=== PATIENT | female | born 1955 | race Caucasian/White ===

== ENCOUNTER → 2016-06-15 | Outpatient (CLI) | payer OTHER ==
--- NOTE | 2016-06-15 11:07 | USB ---
Reason for exam: follow-up at short interval from prior study. History: Patient is postmenopausal. Physical Findings: Nurse did not find any significant physical abnormalities on exam. US Breast RT Right breast ultrasound includes all four quadrants, the retroareolar region and axilla. Finding demonstrate no cystic or solid lesion seen. Compared to ultrasound on 10/22/15 previous findings absent. These results were verbally communicated with the patient and result sheet given to the patient on 06/15/16. ASSESSMENT: Negative, BI-RAD 1 RECOMMENDATION: Routine screening mammogram of the right breast in 5 months. Back on schedule.
== END | disposition home or self-care (01) ==
LOC: RADUSWWP 09:41
PROVIDERS: ATTEND Family Medicine
DX: R92.8 Other abnormal and inconclusive findings on diagnostic imaging of breast (principal)

== ENCOUNTER → 2018-10-03 | Outpatient (CLI) | payer OTHER ==
--- NOTE | 2018-10-03 10:04 | US ---
EXAMINATION TYPE: US liver DATE OF EXAM: 10/03/2018 COMPARISON: NONE CLINICAL HISTORY: R94.5 Abnormal results of liver function studies. abn labs EXAM MEASUREMENTS: Liver Length: 18.7 cm Gallbladder Wall: 0.1 cm CBD: 0.7 cm Right Kidney: 10.7 x 4.1 x 4.6 cm Pancreas: Tail not well visualized due to overlying bowel gas. Liver: There is increased echogenicity of the hepatic parenchyma with diminished visualization of th e portal triads most commonly relating to hepatic steatosis and limiting evaluation for underlying he patic masses. Gallbladder: wnl Evidence for sonographic Manning's sign: neg CBD: upper limits of normal Right Kidney: wnl IMPRESSION: 1. Sonographic findings most commonly related to hepatic steatosis. Correlate with liver function dheeraj ts. 2. No sonographic evidence of cholelithiasis nor acute cholecystitis.
== END | disposition home or self-care (01) ==
LOC: RADUSWWP 09:18
PROVIDERS: ATTEND Family Medicine
DX: R94.5 Abnormal results of liver function studies (principal); Z88.5 Allergy status to narcotic agent
CPT/HCPCS: 76705

== ENCOUNTER 2018-11-04 15:24 | Emergency (ER) | payer OTHER ==
[2018-11-04 15:30] VITALS: BP 142/80; PULSE 98; RESP 18; TEMP 98.3
[2018-11-04] MEDS ORDERED: ACETAMINOPHEN TAB 500 MG TAB PO STA (15:43)
--- NOTE | 2018-11-04 16:11 | XR ---
EXAMINATION TYPE: XR shoulder complete RT, XR humerus RT DATE OF EXAM: 11/04/2018 CLINICAL HISTORY: Pain from fall injury 2 weeks ago. TECHNIQUE: Three views of the right shoulder are obtained. 2 views of right humerus. COMPARISON: None. FINDINGS: There is no acute fracture/dislocation evident in the right shoulder. Some narrowing gleno humeral joint. Moderate to severe narrowing of acromial navicular joint with mild to moderate spurri ng. Distal acromion morphology is maintained. The visualized ribs are intact and unremarkable. Images of right humerus show no acute fracture or dislocation. Visualized elbow joint is within heron l limits. Overlying soft tissue is unremarkable. IMPRESSION: There is no acute fracture or dislocation in the right shoulder.
--- NOTE | 2018-11-04 16:12 | XR ---
EXAMINATION TYPE: XR Hip RT and AP Pelvis DATE OF EXAM: 11/04/2018 COMPARISON: NONE HISTORY: Pain from fall injury 2 weeks ago. Lifting injury 2 days ago. TECHNIQUE: A single AP view of the pelvis is obtained. Two views of the right hip are obtained. FINDINGS: There is no acute fracture/dislocation evident in the pelvis. The sacroiliac joints are d ifficult to visualize in their entirety particularly on the left, likely within normal limits. The o verlying soft tissue appears unremarkable. Mild axial joint space loss in both hips is present. Two views of right hip show no acute fracture or dislocation. No focal lytic or sclerotic lesion see n in the proximal right femur. The overlying soft tissue is unremarkable. IMPRESSION: There is no acute fracture or dislocation in the pelvis or hip.
--- NOTE | 2018-11-04 16:27 | ED ---
General Adult HPI - General Chief complaint: Extremity Injury, Upper Stated complaint: side pain Time Seen by Provider: 11/04/18 15:32 Source: patient, RN notes reviewed Mode of arrival: ambulatory Limitations: no limitations - History of Present Illness Initial comments: 63-year-old female presents to the emergency department for a chief complaint of right hip and shoulder pain. Patient states her shoulder has hurt for 2 weeks. States she had a fall where she fell onto her shoulder 2 weeks ago and since then has been having pain. Patient states that she moved into her new apartment and was moving heavy boxes 2 days ago when she felt the pain in her right hip. States that she has been able to walk on it. Patient has not taken anything for pain. Patient denies any fevers or chills. Denies any numbness or tingling in the right arm or right leg. Denies any midline back pain. Patient denies any weakness of the lower extremities.Patient has no other complaints at this time including shortness of breath, chest pain, abdominal pain, nausea or vomiting, headache, or visual changes. - Related Data Home Medications Medication Instructions Recorded Confirmed Hydrochlorothiazide 25 mg PO DAILY 08/05/15 08/06/15 Levothyroxine Sodium [Synthroid] 50 mcg PO DAILY 08/05/15 08/06/15 amLODIPine BESYLATE [Amlodipine 10 mg PO DAILY 08/05/15 08/06/15 Besylate] Previous Rx's Medication Instructions Recorded Doxepin [SINEquan] 50 mg PO HS PRN #60 cap 08/18/15 Doxepin [SINEquan] 100 mg PO HS #120 cap 08/18/15 Gabapentin [Neurontin] 600 mg PO BID #120 cap 08/18/15 OXcarbazepine [Trileptal] 450 mg PO BID #180 tab 08/18/15 Ziprasidone [Geodon] 80 mg PO BID-W/MEALS #60 cap 08/18/15 Allergies Allergy/AdvReac Type Severity Reaction Status Date / Time ibuprofen [From Motrin] Allergy Swelling Verified 11/04/18 15:28 NSAIDS (Non-Steroidal Allergy Rash/Hives Verified 11/04/18 15:28 Anti-Inflamma Review of Systems ROS Statement: Those systems with pertinent positive or pertinent negative responses have been documented in the HPI. ROS Other: All systems not noted in ROS Statement are negative. Past Medical History Past Medical History: Hypertension, Thyroid Disorder Additional Past Medical History / Comment(s): Blind in the left eye from History of Any Multi-Drug Resistant Organisms: None Reported Past Surgical History: Tubal Ligation Past Anesthesia/Blood Transfusion Reactions: No Reported Reaction Past Psychological History: Anxiety, Bipolar, Depression, Schizophrenia Smoking Status: Current every day smoker Past Alcohol Use History: None Reported Past Drug Use History: None Reported - Past Family History Father Family Medical History: Unable to Obtain Additional Family Medical History / Comment(s): Father is alive at age 86 with history of diabetes. Mother Additional Family Medical History / Comment(s): Mother is alive at age 85 with history of hypertension, temporal arteritis, peripheral vascular disease status post carotid surgery, blindness in the left eye. Sister(s) Additional Family Medical History / Comment(s): Patient has 4 sisters with no major medical problems. Patient has 3 daughters with no major medical problems. General Exam - General Exam Comments Initial Comments: Right shoulder: Patient has full range of motion of the right shoulder. It skin is intact. No tenderness noted of the right shoulder. No bruising or ecchymosis. Radial pulse 2+ and capillary refill less than 2 seconds. Telecine Operator strength 5 out of 5. Sensation intact in right upper extremity. Right hip: Patient has full range motion of the right hip and is ambulatory without limping or pain. No erythema. Skin is intact in normal-appearing. DP and PT pulses 2+. Capillary refill less than 2 seconds. Limitations: no limitations General appearance: alert, in no apparent distress Head exam: Present: atraumatic, normocephalic, normal inspection Eye exam: Present: normal appearance, PERRL, EOMI. Absent: scleral icterus, conjunctival injection, periorbital swelling ENT exam: Present: normal exam, mucous membranes moist Neck exam: Present: normal inspection, full ROM. Absent: tenderness, meningismus, lymphadenopathy Respiratory exam: Present: normal lung sounds bilaterally. Absent: respiratory distress, wheezes, rales, rhonchi, stridor Cardiovascular Exam: Present: regular rate, normal rhythm, normal heart sounds. Absent: systolic murmur, diastolic murmur, rubs, gallop, clicks Neurological exam: Present: alert Course Vital Signs 11/04/18 15:28 Temperature 98.3 F Pulse Rate 98 Respiratory 18 Rate Blood Pressure 142/80 O2 Sat by Pulse 97 Oximetry Medical Decision Making - Medical Decision Making 63-year-old female presents for right shoulder pain 2 weeks after a fall and right hip pain 2 days after moving boxes. No back pain. HPI is documented. No fevers. Patient is ambulatory. Physical exam is unremarkable. Vitals are stable. Patient is well-appearing. X-ray of the right shoulder shows no acute fracture or dislocation. There is moderate to severe narrowing of the acromioclavicular joint which may be contributing to patient's pain. X-ray of the right hip and pelvis shows no acute fracture or dislocation. At this time pain likely muscular in nature. Patient has an ALLERGY to Motrin but will take Tylenol at home. Discussed parameters of Tylenol use. Discussed following up with orthopedics in one to 2 days or return here if she has any worsening symptoms. Disposition Clinical Impression: Shoulder pain, right, Hip pain, right Disposition: HOME SELF-CARE Condition: Good Instructions (If sedation given, give patient instructions): Shoulder Pain (ED), Hip Pain (ED) Additional Instructions: Please take Tylenol for pain. Please follow-up with primary care and orthopedics in 1-2 days. Please return to the emergency department if you have any worsening symptoms. Is patient prescribed a controlled substance at d/c from ED?: No Referrals: Bj Lara Jr, DO [Primary Care Provider] - 1-2 days Mehul Trammell DO [Doctor of Osteopathic Medicine] - 1-2 days Time of Disposition: 16:26
== END 2018-11-04 16:30 | disposition home or self-care (01) ==
LOC: EC 15:24
DX: M25.511 Pain in right shoulder (principal); M25.551 Pain in right hip; I10 Essential (primary) hypertension; E07.9 Disorder of thyroid, unspecified; H54.62 Unqualified visual loss, left eye, normal vision right eye; F17.200 Nicotine dependence, unspecified, uncomplicated; Z88.6 Allergy status to analgesic agent; M25.811 Other specified joint disorders, right shoulder; Z79.890 Hormone replacement therapy; Z79.899 Other long term (current) drug therapy; W19.XXXA Unspecified fall, initial encounter; X50.0XXA Overexertion from strenuous movement or load, initial encounter; Y93.89 Activity, other specified
CPT/HCPCS: 73502; 99283

== ENCOUNTER 2018-12-14 05:18 | Inpatient (IN) | payer MEDICAID, OTHER ==
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
[2018-12-14] MEDS ORDERED: ZIPRASIDONE 20 MG VIAL IM STA (06:58)
[2018-12-14] MEDS ORDERED: LORazepam 2 MG/ML INJ IM STA (06:58)
[2018-12-14] MEDS ORDERED: MAG HYDROX/AL HYDROX/SIMETH 30 ML CUP PO PRN (13:43)
[2018-12-14] MEDS ORDERED: LORazepam 2 MG/ML INJ IM PRN (13:47)
[2018-12-14] MEDS ORDERED: ZIPRASIDONE 20 MG VIAL IM PRN (13:48)
[2018-12-14] MEDS: LORazepam 1 MG TAB PO PRN (16:28)
[2018-12-15] MEDS: LEVOTHYROXINE 50 MCG TAB PO SCH (07:15)
[2018-12-15 09:31] LABS: Basophils % (A) 1 %; Eosinophils # (A) 0.1 k/uL (0-0.7); Eosinophils % (A) 2 %; HCT 43.9 % (34.0-46.0); HGB 14.7 gm/dL (11.4-16.0); Lymphocytes % (A) 32 %; MCH 31.7 pg (25.0-35.0); MCHC 33.6 g/dL (31.0-37.0); MCV 94.3 fL (80.0-100.0); Monocytes # (A) 0.4 k/uL (0-1.0); Monocytes % (A) 6 %; Neutrophils # (A) 3.4 k/uL (1.3-7.7); Neutrophils % (A) 56 %; Platelet Count 179 k/uL (150-450); RBC 4.65 m/uL (3.80-5.40); RDW 12.9 % (11.5-15.5); WBC 6.1 k/uL (3.8-10.6)
[2018-12-15 09:45] LABS: ALT 61 U/L (9-52); AST 63 U/L (14-36); African American GFR (CKD) >90 (>60 ml/min/1.73 sqM); Albumin 4.2 g/dL (3.5-5.0); Alkaline Phosphatase 88 U/L (38-126); Anion Gap 12 mmol/L; Bilirubin, Delta 0.4 mg/dL (0.0-0.2); Bilirubin,Unconjugated 0.9 mg/dL (0.0-1.1); Blood Urea Nitrogen 13 mg/dL (7-17); Calcium 9.4 mg/dL (8.4-10.2); Carbon Dioxide 23 mmol/L (22-30); Chloride 104 mmol/L (98-107); Cholesterol 166 mg/dL (<200); Glucose 95 mg/dL (74-99); HDL Cholesterol 39 mg/dL (40-60); LDL Cholesterol,Calculated 106 mg/dL (0-99); Non-African American GFR(CKD) >90 (>60 ml/min/1.73 sqM); Potassium 4.1 mmol/L (3.5-5.1); Sodium 139 mmol/L (137-145); Total Bilirubin 1.3 mg/dL (0.2-1.3); Total Protein 7.7 g/dL (6.3-8.2); Triglycerides 103 mg/dL (<150)
[2018-12-15] MEDS: ATORVASTATIN 10 MG TAB PO SCH (10:47)
[2018-12-15] MEDS: amLODIPine 10 MG TAB PO SCH (10:47)
[2018-12-15] MEDS: ATENOLOL 50 MG TAB PO SCH (10:47)
--- NOTE | 2018-12-15 12:33 | P.CONS ---
History of Present Illness - Reason for Consult Consult date: 12/15/18 Medical management of hypertension hyperlipidemia hypothyroidism - History of Present Illness This is a pleasant 63-year-old female, who was hospitalized for delusions. She has a medical history of hypertension, hyperlipidemia, and hypothyroidism. I've been asked to see her for medical management is diseases. She is pleasant and extremely happy at this time. She denies any significant complaints. Staff have no significant medical concerns about her at this time. Routine laboratory studies showed mildly elevated liver function tests. Review of Systems All systems: negative Past Medical History Past Medical History: Hypertension, Thyroid Disorder Additional Past Medical History / Comment(s): Blind in the left eye from History of Any Multi-Drug Resistant Organisms: None Reported Past Surgical History: Tubal Ligation Past Anesthesia/Blood Transfusion Reactions: No Reported Reaction Smoking Status: Current every day smoker - Past Family History Father Family Medical History: Unable to Obtain Additional Family Medical History / Comment(s): Father is alive at age 86 with history of diabetes. Mother Additional Family Medical History / Comment(s): Mother is alive at age 85 with history of hypertension, temporal arteritis, peripheral vascular disease status post carotid surgery, blindness in the left eye. Sister(s) Additional Family Medical History / Comment(s): Patient has 4 sisters with no major medical problems. Patient has 3 daughters with no major medical problems. Medications and Allergies Home Medications Medication Instructions Recorded Confirmed Type Levothyroxine Sodium [Synthroid] 50 mcg PO DAILY 08/05/15 12/14/18 History amLODIPine BESYLATE [Amlodipine 10 mg PO DAILY 08/05/15 12/14/18 History Besylate] Atenolol [Tenormin] 50 mg PO DAILY 12/14/18 12/14/18 History Atorvastatin Calcium [Lipitor] 10 mg PO DAILY 12/14/18 12/14/18 History Allergies Allergy/AdvReac Type Severity Reaction Status Date / Time ibuprofen [From Motrin] Allergy Swelling Verified 12/14/18 17:08 NSAIDS (Non-Steroidal Allergy Rash/Hives Verified 12/14/18 17:08 Anti-Inflamma Physical Exam Vitals: Vital Signs Temp Pulse Pulse Resp BP Pulse Ox 12/15/18 06:26 97.7 F 105 H 18 164/77 12/14/18 18:27 97 F L 110 H 15 140/95 95 12/14/18 17:38 98 F 110 H 20 140/95 99 12/14/18 16:48 97 F L 110 H 15 95 12/14/18 16:30 97.6 F 112 H 20 185/78 98 12/14/18 15:56 81 16 95 Intake and Output 12/14/18 12/15/18 12/15/18 22:59 06:59 14:59 Other: Weight 103.2 kg GENERAL: Well-appearing, obese female in no acute distress. HEAD: Atraumatic, normocephalic. EYES: Pupils equal round and reactive to light, extraocular movements intact, sclera anicteric, conjunctiva are normal. ENT:nares patent, oropharynx clear without exudates. Moist mucous membranes. NECK: Normal range of motion, supple without lymphadenopathy or JVD, no thyromegaly LUNGS: Breath sounds clear to auscultation bilaterally and equal. No wheezes rales or rhonchi. HEART: Regular rate and rhythm without murmurs, rubs or gallops.S1S2 Normal ABDOMEN: Soft, nontender, normoactive bowel sounds. No guarding, no rebound. No masses appreciated. EXTREMITIES: Normal range of motion, no pitting or edema. No clubbing or cyanosis. NEUROLOGICAL: Cranial nerves II through XII grossly intact. Normal speech, normal gait. PSYCH: Significantly elevated mood, normal affect. SKIN: Warm, Dry, normal turgor, no rashes or lesions noted. Results CBC & Chem 7: 12/15/18 08:41 12/15/18 08:41 Labs: Abnormal Lab Results - Last 24 Hours (Table) 12/15/18 Range/Units 08:41 Delta Bilirubin 0.4 H (0.0-0.2) mg/dL AST 63 H (14-36) U/L ALT 61 H (9-52) U/L LDL Cholesterol, Calc 106 H (0-99) mg/dL HDL Cholesterol 39 L (40-60) mg/dL Assessment and Plan (1) Essential (primary) hypertension Current Visit: Yes Status: Acute Code(s): I10 - ESSENTIAL (PRIMARY) HYPERTENSION SNOMED Code(s): 66852735 (2) Mixed hyperlipidemia Current Visit: Yes Status: Acute Code(s): E78.2 - MIXED HYPERLIPIDEMIA SNOMED Code(s): 656977782 (3) Hypothyroidism Current Visit: Yes Status: Acute Code(s): E03.9 - HYPOTHYROIDISM, UNSPECIFIED SNOMED Code(s): 55089502 (4) Abnormal liver function test Current Visit: Yes Status: Acute Code(s): R94.5 - ABNORMAL RESULTS OF LIVER FUNCTION STUDIES SNOMED Code(s): 393176740 (5) Acute psychosis Current Visit: Yes Status: Acute Code(s): F23 - BRIEF PSYCHOTIC DISORDER SNOMED Code(s): 23667983 (6) Schizophrenia Current Visit: No Status: Acute Code(s): F20.9 - SCHIZOPHRENIA, UNSPECIFIED SNOMED Code(s): 36180085 Plan: We'll repeat liver function tests, she'll be restarted on her medication of atenolol and amlodipine for hypertension along with atorvastatin for hyperlipidemia and levothyroxine for hypothyroidism. Thank you for allowing me to participate in her care.
--- NOTE | 2018-12-15 16:15 | P.HP ---
Psychiatric H&P - . H&P Date: 12/15/18 History & Physical: Allergies Allergy/AdvReac Type Severity Reaction Status Date / Time ibuprofen [From Motrin] Allergy Swelling Verified 12/14/18 17:08 NSAIDS (Non-Steroidal Allergy Rash/Hives Verified 12/14/18 17:08 Anti-Inflamma Vital Signs Temp 97.7 F 12/15/18 06:26 Pulse 105 H 12/15/18 06:26 Resp 18 12/15/18 06:26 BP 164/77 12/15/18 06:26 Pulse Ox 95 12/14/18 18:27 Intake & Output 12/14/18 12/15/18 12/15/18 18:59 06:59 18:59 Weight 103.2 kg Laboratory Last Values WBC 6.1 k/uL (3.8-10.6) 12/15/18 08:41 RBC 4.65 m/uL (3.80-5.40) 12/15/18 08:41 Hgb 14.7 gm/dL (11.4-16.0) 12/15/18 08:41 Hct 43.9 % (34.0-46.0) 12/15/18 08:41 MCV 94.3 fL (80.0-100.0) 12/15/18 08:41 MCH 31.7 pg (25.0-35.0) 12/15/18 08:41 MCHC 33.6 g/dL (31.0-37.0) 12/15/18 08:41 RDW 12.9 % (11.5-15.5) 12/15/18 08:41 Plt Count 179 k/uL (150-450) 12/15/18 08:41 Neutrophils % 56 % 12/15/18 08:41 Lymphocytes % 32 % 12/15/18 08:41 Monocytes % 6 % 12/15/18 08:41 Eosinophils % 2 % 12/15/18 08:41 Basophils % 1 % 12/15/18 08:41 Neutrophils # 3.4 k/uL (1.3-7.7) 12/15/18 08:41 Lymphocytes # 2.0 k/uL (1.0-4.8) 12/15/18 08:41 Monocytes # 0.4 k/uL (0-1.0) 12/15/18 08:41 Eosinophils # 0.1 k/uL (0-0.7) 12/15/18 08:41 Basophils # 0.0 k/uL (0-0.2) 12/15/18 08:41 Sodium 139 mmol/L (137-145) 12/15/18 08:41 Potassium 4.1 mmol/L (3.5-5.1) 12/15/18 08:41 Chloride 104 mmol/L (98-107) 12/15/18 08:41 Carbon Dioxide 23 mmol/L (22-30) 12/15/18 08:41 Anion Gap 12 mmol/L 12/15/18 08:41 BUN 13 mg/dL (7-17) 12/15/18 08:41 Creatinine 0.66 mg/dL (0.52-1.04) 12/15/18 08:41 Est GFR (CKD-EPI)AfAm >90 (>60 ml/min/1.73 sqM) 12/15/18 08:41 Est GFR (CKD-EPI)NonAf >90 (>60 ml/min/1.73 sqM) 12/15/18 08:41 Glucose 95 mg/dL (74-99) 12/15/18 08:41 Calcium 9.4 mg/dL (8.4-10.2) 12/15/18 08:41 Total Bilirubin 1.3 mg/dL (0.2-1.3) 12/15/18 08:41 Conjugated Bilirubin 0.0 mg/dL (0.0-0.3) 12/15/18 08:41 Unconjugated Bilirubin 0.9 mg/dL (0.0-1.1) 12/15/18 08:41 Delta Bilirubin 0.4 mg/dL (0.0-0.2) H 12/15/18 08:41 AST 63 U/L (14-36) H 12/15/18 08:41 ALT 61 U/L (9-52) H 12/15/18 08:41 Alkaline Phosphatase 88 U/L (38-126) 12/15/18 08:41 Total Protein 7.7 g/dL (6.3-8.2) 12/15/18 08:41 Albumin 4.2 g/dL (3.5-5.0) 12/15/18 08:41 Triglycerides 103 mg/dL (<150) 12/15/18 08:41 Cholesterol 166 mg/dL (<200) 12/15/18 08:41 LDL Cholesterol, Calc 106 mg/dL (0-99) H 12/15/18 08:41 HDL Cholesterol 39 mg/dL (40-60) L 12/15/18 08:41 TSH 0.681 mIU/L (0.465-4.680) 12/15/18 08:41 12/15/18 16:04 IDENTIFYING DATA: 63-year-old female patient. HPI: Admitted to the inpatient psychiatric unit on an involuntary basis, petition done by registered nurse stating "patient believes that witches and warlocks are trying to drug, rape and prostitute us. She said she fights them every day." Patient reports that she has been battling then goes on to state "witches, warlocks sorcerers." She states that it's a constant ragland. She says she feels good when there is a lot of people around her that can direct her, but every day is a fight. She states that she's been sleeping only about an hour. She does her mood lately as great here in great when she hears music. When talking about past overdoses she relays that "that's a part of sorcery, they're casting spells on you." Regarding taking medication she says "I'm going to trust the Lord." She relays that she is open to trying something else. PAST PSYCHIATRIC HISTORY: She has a history of multiple overdoses it sounds like, no suicide attempts. She denies any current psychiatrist or counselor. She says she has been hospitalized a lot. She says that she feels much better not on medication. She says she did very well on Prozac. She did not like Depakote or lithium and Lamictal made her want to sleep. Says she has diagnosis history of schizophrenia and bipolar disorder. She does admit to some history of hallucinations, auditory hallucinations she says that are the wrong kind. PMH: Hypertension, thyroid disorder, hypercholesterolemia ALLERGIES: Ibuprofen, NSAIDs MEDICATIONS: Maalox when necessary, Norvasc, Tenormin, Lipitor, Synthroid, Ativan when necessary, Geodon when necessary CHEMICAL DEPENDENCY HISTORY: Denies FAMILY PSYCHIATRIC HISTORY: Relays her schizophrenia and bipolar disorder in the family. She says her sister does well on Abilify. FAMILY CHEMICAL DEPENDENCY HISTORY: Not known at this time. SOCIAL HISTORY: Relays that she lives by herself, does make reference to living with her daughter. She has been one time and . She has 3 daughters. She is on Social Security disability. MENTAL STATUS EXAM: She is alert and cooperative with the interview. Her speech is fluent, not necessarily showing any significant rapidity or pressured speech. She appears tearful at times. Regarding her mood she says "great here." She denies any auditory or visual hallucinations. She denies any bothersome or paranoid type thoughts. She does describe feeling as though she's been battling witches, warlocks and sorcerers. She makes reference to previous overdoses relating "that's a part of sorcery, they are casting spells on you." She denies any thoughts of harm to self or others. Cognitively she appears to be grossly intact. I do not note any significant disorientation or significant memory disturbance. Her insight has some limitations her judgment shows evidence of recent impairment. STRENGTHS/WEAKNESSES: Strengths-agreeable to initiate some medication treatment; weaknesses-recent noncompliance with treatment INTELLECTUAL FUNCTIONING: Average IMPRESSIONS: Schizoaffective disorder, bipolar type PLAN: Patient be admitted to the inpatient psychiatric unit [facility] on involuntary basis. Second clinical CERT is done. Abilify will be initiated 10 mg daily to help with him psychosis symptoms as well as mood stability. Baseline laboratory workup will be done the patient and medical consultation will be ordered. We will look into support systems. She will be offered multiple different group and activity therapies. Estimated length of stay is 5-7 days. Prognosis is guarded. She is placed on SP 15 minute precautions.
[2018-12-15] MEDS: ARIPiprazole 10 MG TAB PO SCH (16:48)
[2018-12-15 20:27] LABS: Hemoglobin A1C 5.7 % (4.0-6.0)
[2018-12-16] MEDS: LORazepam 1 MG TAB PO PRN (04:11)
[2018-12-16] MEDS: LEVOTHYROXINE 50 MCG TAB PO SCH (06:19)
[2018-12-16] MEDS: amLODIPine 10 MG TAB PO SCH (08:15)
[2018-12-16] MEDS: ATORVASTATIN 10 MG TAB PO SCH (08:16)
[2018-12-16] MEDS: ATENOLOL 50 MG TAB PO SCH (08:16)
[2018-12-16] MEDS: ARIPiprazole 10 MG TAB PO SCH (08:16)
[2018-12-16 08:19] LABS: ALT 57 U/L (9-52); AST 53 U/L (14-36); African American GFR (CKD) >90 (>60 ml/min/1.73 sqM); Albumin 4.2 g/dL (3.5-5.0); Alkaline Phosphatase 97 U/L (38-126); Anion Gap 12 mmol/L; Blood Urea Nitrogen 17 mg/dL (7-17); Calcium 9.4 mg/dL (8.4-10.2); Carbon Dioxide 23 mmol/L (22-30); Chloride 105 mmol/L (98-107); Glucose 106 mg/dL (74-99); Non-African American GFR(CKD) >90 (>60 ml/min/1.73 sqM); Sodium 140 mmol/L (137-145); Total Bilirubin 1.1 mg/dL (0.2-1.3); Total Protein 7.7 g/dL (6.3-8.2)
--- NOTE | 2018-12-16 11:49 | P.PN ---
Progress Note - Text Progress Note Date: 12/16/18 Patient is seen in cross coverage in today. She reports that she didn't sleep much last night. She feels like the Abilify is making her feel tired. She makes reference that at times some seeing people that other people can't see, relays a doesn't really bother her. Mental status exam: She is alert and cooperative with the interview. She laughs at times during the session. She describes her mood as "tired." She denies any thoughts of harm to self or others. She admits to visual hallucinations of seeing people that other people can't see at times. She does not verbalize any auditory hallucinations. She was seen in the hallway yesterday seated in a chair and saying some repetitive things. Plan: Patient will be maintained on Abilify, we'll change the scheduling 2 at bedtime to minimize any daytime sedation and perhaps this will help her sleep at night. Continue to monitor for any medication side effects and monitor her ongoing response to treatment.
[2018-12-17] MEDS: LORazepam 1 MG TAB PO PRN ×2 (00:57→22:27)
[2018-12-17] MEDS: LEVOTHYROXINE 50 MCG TAB PO SCH (06:06)
[2018-12-17] MEDS: ATENOLOL 50 MG TAB PO SCH (08:19)
[2018-12-17] MEDS: ATORVASTATIN 10 MG TAB PO SCH (08:19)
[2018-12-17] MEDS: ARIPiprazole 10 MG TAB PO SCH (08:19)
[2018-12-17] MEDS: amLODIPine 10 MG TAB PO SCH (08:19)
--- NOTE | 2018-12-17 10:09 | P.PN ---
Progress Note - Text Interval history: The patient is found in group she follows me to an interview room. She states that her mood is fine. She was admitted for acute symptoms of psychosis. I reviewed the EPS assessment as well as a psychiatric evaluation. She was brought in reporting she had concerns about witches and warlocks. She is religiously preoccupied. She indicates today that she felt unsafe at home but feels safe in the hospital. She was seen by Dr. Jacobs and Abilify 10 mg daily was initiated. She states that she is never been on that medication but had been on Geodon invega and lithium in the past. She states her sister is treated with Abilify and that works well for her. The patient indicates that she is eating and sleeping. Mental status exam: The patient is alert she is dressed in her own clothing she has a disheveled appearance her shirt is sustained. She is carrying some belongings with her. Eye contact is appropriate affect is overly bright. Several times she states "God bless you in your family". She indicates having concerns about witches and warlocks but does not provide any specific information. Thought process is somewhat disorganized at times with brief questions she can be more linear. She demonstrates no verbal or physical aggressiveness. She reports no suicidal or homicidal ideation intent or plan. Insight and judgment are impaired. Plan: The patient will continue on the Abilify we will titrate the dose to 15 mg daily to further address her acute symptoms of psychosis. We will monitor her for safety. She is encouraged to continue participating in groups attend her ADLs. We will monitor vital signs. Blood pressure elevated we will continue to monitor. She requires continued psychiatric hospitalization.
[2018-12-18] MEDS: ARIPiprazole 15 MG TAB PO SCH (10:00)
[2018-12-18] MEDS: ATORVASTATIN 10 MG TAB PO SCH (10:00)
[2018-12-18] MEDS: LEVOTHYROXINE 50 MCG TAB PO SCH (10:00)
[2018-12-18] MEDS: amLODIPine 10 MG TAB PO SCH (10:00)
[2018-12-18] MEDS: ATENOLOL 50 MG TAB PO SCH (10:01)
--- NOTE | 2018-12-18 10:03 | P.PN ---
Progress Note - Text Interval history: The patient is found in group she follows me to an interview room. She indicates she is worried and concerned. She states she is tired. Staff reported she slept only 3 hours. She is very concerned about being unsafe due to sorcery and witchcraft. She states that she hopes she can remember all the codes that she will need when she leaves. She reports that she is also experiencing positive input from the Lord which helps reassure her. She deferred during her meeting with her bilingual nanny yesterday. She has been c ooperative with group participation as well as medications. Mental status exam: The patient's an overweight female appearing her stated age. She is alert she stressor own clothing. She identifies a mood of being tired and fearful. She becomes tearful when describing concerns of sorcery and witchcraft. She feels that those phenomenon endanger her. Nonspecifically she refers to codes that she will need to remember and she is afraid she will forget them. Insight and judgment are impaired by his symptoms of psychosis. She demonstrates no verbal or physical aggressiveness. She is cooperative and easily directed. She reports no suicidal or homicidal ideation intent or plan. Thought process can be linear but also can become tangential was spontaneous speech. She endorses racing thoughts. Affect can be mildly labile. Plan: The patient will continue on her current psychotropic medication. We will monitor for symptoms of psychosis and we'll monitor for her ability to maintain her ADLs. Sleep has been impaired in the evening we will monitor that further. She is encouraged to fully participate in groups. Vital signs reviewed. She requires continued psychiatric hospitalization due to her acute psychosis.
[2018-12-19] MEDS: LORazepam 1 MG TAB PO PRN (00:51)
[2018-12-19] MEDS: LEVOTHYROXINE 50 MCG TAB PO SCH (05:49)
[2018-12-19] MEDS: ATORVASTATIN 10 MG TAB PO SCH (09:40)
[2018-12-19] MEDS: amLODIPine 10 MG TAB PO SCH (09:40)
[2018-12-19] MEDS: ARIPiprazole 15 MG TAB PO SCH (09:40)
[2018-12-19] MEDS: ATENOLOL 50 MG TAB PO SCH (09:40)
--- NOTE | 2018-12-19 09:55 | P.PN ---
Progress Note - Text Interval history: The patient is found in group she follows me to an interview room. She states that she slept last night however staff reports she slept 2 hours. She indicates that she is napping during the day. She states she does this because she has to pray during the night. Appetite stable. She reports feeling safe appear but continues to have thoughts of sorcery. She goes on a tangent about not walking on people's graves because this can cause the to rise. She has no questions or concerns regarding her medication. Mental status exam: The patient is an overweight female appearing her stated age. She is pleasant cooperative. Affect is overly bright. Her speech is mildly pressured. She often states "God bless you". Thought process lacks organization at times. She states at times she feels confused. She has a bright smiling affect that is expansive. She reports no suicidal or homicidal ideation. She is endorsing auditory hallucinations in the form of hearing the Lord's voice and other unspecified voices. She continues to have some paranoid and persecutory thinking. Insight and judgment are impaired. Plan: The patient will continue on the Abilify we will likely plan to titrate that further this week. We will add melatonin 5 mg at bedtime to assist with sleep. We will monitor her for safety. Vital signs reviewed blood pressure is fluctuating. She is encouraged to continue participating in all groups. She requires continued psychiatric hospitalization.
[2018-12-19] MEDS: MELATONIN 5 MG TABLET PO SCH (21:12)
[2018-12-20] MEDS: LEVOTHYROXINE 50 MCG TAB PO SCH (07:06)
[2018-12-20] MEDS: ATENOLOL 50 MG TAB PO SCH (09:32)
[2018-12-20] MEDS: ARIPiprazole 15 MG TAB PO SCH (09:32)
[2018-12-20] MEDS: ATORVASTATIN 10 MG TAB PO SCH (09:32)
[2018-12-20] MEDS: amLODIPine 10 MG TAB PO SCH (09:32)
--- NOTE | 2018-12-20 09:51 | P.PN ---
Progress Note - Text Interval history: The patient is found in group she follows me to an interview room. She indicates she is doing fine. She first indicates that she is troubled that it is halloween but later states she is fine with that. She reports feeling safe in the hospital. Continues to have concerns regarding witchcraft and sorcery. She felt she slept throughout the night staff reported she slept 2 hours. She has been compliant with the Abilify. She believes that the Abilify will help her as her sister is on that medication. Mental status exam: The patient is an overweight female appearing her stated age. She is dressed in her own clothing. Hygiene grooming adequate. Eye contact is appropriate. She is more guarded today in conversation. She has less spontaneous speech. She provides more brief answers. She continues to endorse a delusional thought content. There are continues to be disorganization of thought. She can become tangential at times. Affect is somewhat variable. She will have exaggerated laughter at times she is almost tearful twice during the interaction. She demonstrates no verbal or physical aggressiveness. She demonstrates no involuntary repetitive movements. Insight and judgment are impaired. She reports no suicidal or homicidal ideation intent or plan. She is oriented to person place and date. Plan: The patient will continue on the Abilify we will titrate the dose to 20 mg daily. We will continue to monitor her for safety. Vital signs reviewed. She is encouraged to fully participate in the milieu. She continues to be acutely symptomatic and requires inpatient psychiatric care.
[2018-12-20] MEDS: MELATONIN 5 MG TABLET PO SCH (20:00)
[2018-12-21] MEDS: LEVOTHYROXINE 50 MCG TAB PO SCH (05:57)
[2018-12-21] MEDS: ATENOLOL 50 MG TAB PO SCH (09:19)
[2018-12-21] MEDS: amLODIPine 10 MG TAB PO SCH (09:19)
[2018-12-21] MEDS: ATORVASTATIN 10 MG TAB PO SCH (09:19)
--- NOTE | 2018-12-21 10:13 | P.PN ---
Progress Note - Text Interval history: The patient is found in her room sleeping she refuses to get up in follows me to an interview room. Staff reported she slept only 1 hour last evening. She is known to take naps throughout the day however. She has been compliant with the Abilify. We briefly reviewed other mood stabilizers she has trialed in the past. She states she refuses to take lithium or Depakote again. She does not recall trying Lamictal and is agreeable to starting that this evening. Mental status exam: The patient is lying in bed she was sleeping but was verbally arousable. She is covered in sheets in a blanket. Eye contact is intermittent. She remains hyperverbal. She was observed earlier this morning ambulating in the hallway without difficulty. She was hyperverbal at the hotel front office manager. Thought process can be disorganized at times. She continues to have a delusional thought content and is fearful for her safety. She reports no suicidal or homicidal ideation. Insight and judgment limited. She demonstrates no verbal or physical aggressiveness. She demonstrates no repetitive involuntary movements. Plan: The patient will continue on the Abilify at its current dose. We will consider titrating further. We will initiate Lamictal 25 mg at bedtime and we'll titrate that further. We're adding the Lamictal to assist the Abilify in stabilizing mood. The patient requires continued psychiatric hospitalization for safety reasons. We will monitor her for safety and encourage full participation in the milieu. She is encouraged not to sleep during the day so as to improve her sleep behavior at night. Vital signs reviewed.
[2018-12-21] MEDS: MELATONIN 5 MG TABLET PO SCH (20:17)
[2018-12-21] MEDS: lamoTRIgine 25 MG TAB PO SCH (20:17)
[2018-12-22] MEDS: LORazepam 1 MG TAB PO PRN (02:23)
[2018-12-22] MEDS: LEVOTHYROXINE 50 MCG TAB PO SCH (06:09)
[2018-12-22] MEDS: ATENOLOL 50 MG TAB PO SCH (08:12)
[2018-12-22] MEDS: ATORVASTATIN 10 MG TAB PO SCH (08:12)
[2018-12-22] MEDS: amLODIPine 10 MG TAB PO SCH (08:12)
--- NOTE | 2018-12-22 17:28 | P.PN ---
Progress Note - Text Progress Note Date: 12/22/18 IDENTIFICATION DATA: 63-year-old female admitted to the inpatient psychiatric unit on an involuntary basis with acute psychosis. INTERVAL HISTORY: She reports feeling anxious saying am I going to fail . She also reports seeing a ball going up and down inside her room. Other harry she says her medications have been helping her and has been going to all her assigned groups. She reports good sleep and appetite. She denies current symptoms of depression. No side effects reported. MENTAL STATUS EXAMINATION: 63 year old woman. She is obese with magianal grooming. Her speech and thought process are goal directed. Her mood is reported as rested and affect broad. She denies current auditory hallucinations reports visual hallucinations. Denies paranoid ideations. Denies current suicidal or homicidal ideations. She is alert and oriented x 4. Her insight and judgement are improving. ASSESSMENT Schizoaffective disorder, bipolar type PLAN: Continue Abilify 20mg po daily Lamictal 25mg po qhs Melatonin 5mg po qhs
[2018-12-22] MEDS: lamoTRIgine 25 MG TAB PO SCH (20:41)
[2018-12-22] MEDS: MELATONIN 5 MG TABLET PO SCH (20:41)
[2018-12-23] MEDS: LORazepam 1 MG TAB PO PRN (01:38)
[2018-12-23] MEDS: LEVOTHYROXINE 50 MCG TAB PO SCH (06:15)
[2018-12-23] MEDS: ATORVASTATIN 10 MG TAB PO SCH (07:58)
[2018-12-23] MEDS: ATENOLOL 50 MG TAB PO SCH (07:58)
[2018-12-23] MEDS: amLODIPine 10 MG TAB PO SCH (07:58)
--- NOTE | 2018-12-23 14:52 | P.PN ---
Progress Note - Text Progress Note Date: 12/23/18 IDENTIFICATION DATA: 63-year-old female admitted to the inpatient psychiatric unit on an involuntary basis with acute psychosis. INTERVAL HISTORY: She says she doesnt sleep well at night and says they say I slept only for hours, you have to check with them, She however reports feeling rested when she wakes up next day. She says she doesnt wake up in the morning and sleeps through late in the day but unable to tell how late. She reports good appetite. She says she likes going to groups. She reports seeing and hearing people talking and making hissing noises and creating lot of confusion inside her room. She denies paranoid ideations. She denies current symptoms of depression and denies current suicidal or homicidal ideations. She says she is complaint with medications and no side effects reported. She says there is no luck in [facility], only blessings in [facility]. MENTAL STATUS EXAMINATION: 63 year old woman. She is obese with fair grooming and hygiene . Her speech and thought process are goal directed. Her mood is reported as good and affect cons tricted. She reports auditory hallucinations and visual hallucinations. Denies paranoid ideations. Denies current suicidal or homicidal ideations. She is alert and oriented x 4. Her insight and judgement are improving. ASSESSMENT Schizoaffective disorder, bipolar type PLAN: She continues to meet criteria for inpatient hospitalization Continue Abilify 20mg po daily Lamictal 25mg po qhs Melatonin 5mg po qhs
[2018-12-23] MEDS: MELATONIN 5 MG TABLET PO SCH (20:51)
[2018-12-23] MEDS: lamoTRIgine 25 MG TAB PO SCH (20:51)
[2018-12-24] MEDS: LORazepam 1 MG TAB PO PRN ×2 (02:43→12:07)
[2018-12-24] MEDS ORDERED: traMADol 50 MG TAB PO STA ×2 (03:31→04:02)
[2018-12-24] MEDS: LEVOTHYROXINE 50 MCG TAB PO SCH (05:55)
--- NOTE | 2018-12-24 09:34 | P.PN ---
Progress Note - Text Interval history: The patient is found in the front that she follows me to an interview room. She indicates her mood is fine today. Staff reported that over the weekend she tried to insert a pen into an electrical outlet. The patient states she has no reason for doing it but it's what she had to do. She continues to sleep poorly in the evening. She continues to be religiously preoccupied she demonstrates some disorganization of her thoughts. She has no questions or concerns regarding medications. No side effects reported. Mental status exam: The patient is an obese female appearing her stated age. She is dressed in hospital gowns. She is mildly disheveled. Eye contact is appropriate she is pleasant cooperative. She continues to verbalize sikhism type delusions with some disorganized delusional thought. She frequently states "God bless you and your family". Her symptoms of psychosis impair her insight and judgment. She demonstrates no verbal or physical aggressiveness. She has a smiling affect throughout our interaction. She demonstrates no involuntary repetitive movements. Plan: The patient will continue on her current medication however I will titrate the Abilify to 30 mg daily. We have just started the Lamictal we will titrate that further as well. We will monitor her for safety and encourage participation in the milieu. She requires continued psychiatric hospitalization for acute safety reasons.
[2018-12-24] MEDS: amLODIPine 10 MG TAB PO SCH (09:37)
[2018-12-24] MEDS: ATORVASTATIN 10 MG TAB PO SCH (09:37)
[2018-12-24] MEDS: ATENOLOL 50 MG TAB PO SCH (09:37)
[2018-12-24] MEDS: ACETAMINOPHEN TAB 325 MG TAB PO PRN ×2 (16:21→21:56)
[2018-12-24] MEDS: MELATONIN 5 MG TABLET PO SCH (21:57)
[2018-12-24] MEDS: lamoTRIgine 25 MG TAB PO SCH (21:57)
[2018-12-25] MEDS: LORazepam 1 MG TAB PO PRN ×2 (00:25→18:26)
[2018-12-25] MEDS: ACETAMINOPHEN TAB 325 MG TAB PO PRN ×3 (04:46→18:26)
[2018-12-25] MEDS: LEVOTHYROXINE 50 MCG TAB PO SCH (06:59)
[2018-12-25] MEDS: ATENOLOL 50 MG TAB PO SCH (08:51)
[2018-12-25] MEDS: amLODIPine 10 MG TAB PO SCH (08:51)
[2018-12-25] MEDS: ARIPiprazole 15 MG TAB PO SCH (08:51)
[2018-12-25] MEDS: ATORVASTATIN 10 MG TAB PO SCH (08:51)
--- NOTE | 2018-12-25 10:16 | P.PN ---
Progress Note - Text Interval history: The patient is found in her room she is asked to follow me to an interview room. She stops out of her room wearing only a blanket with parts of her body exposed. She is instructed to return to her room and she is brought more hospital gowns. The patient indicates she slept last night staff reports she slept 2 hours. She demonstrated disorganized thoughts. She has no questions or concerns regarding her psychotropic medication. Mental status exam: The patient is an obese female appearing her stated age. She is alert. She demonstrates disorganization of thought and some confusion. She endorses concerns regarding witchcraft and sorcery. She indicates feeling unsafe at times. She is reporting no suicidal or homicidal thoughts. She demonstrates symptoms of epi. Insight and judgment are poor. She demonstrates no verbal or physical aggressiveness. She has been directable. Affect is labile. Plan: The patient will be continued on her current psychotropic medication we will plan to titrate the Lamictal further. We will continue the Abilify is written. She requires continued psychiatric hospitalization for safety reasons. Vital signs reviewed. We will encourage appropriate participation in the milieu.
[2018-12-26] MEDS: LORazepam 1 MG TAB PO PRN ×2 (02:00→10:35)
[2018-12-26] MEDS: ACETAMINOPHEN TAB 325 MG TAB PO PRN ×2 (02:00→10:35)
[2018-12-26] MEDS: LEVOTHYROXINE 50 MCG TAB PO SCH (06:12)
[2018-12-26] MEDS: ATENOLOL 50 MG TAB PO SCH (09:08)
[2018-12-26] MEDS: ATORVASTATIN 10 MG TAB PO SCH (09:08)
[2018-12-26] MEDS: amLODIPine 10 MG TAB PO SCH (09:08)
[2018-12-26] MEDS: ARIPiprazole 15 MG TAB PO SCH (09:08)
[2018-12-26] MEDS: MELATONIN 5 MG TABLET PO SCH ×2 (09:39→21:25)
[2018-12-26] MEDS: lamoTRIgine 25 MG TAB PO SCH ×2 (09:39→21:25)
--- NOTE | 2018-12-26 11:23 | P.PN ---
Progress Note - Text Interval history: The patient is found in the hallway she follows me to an interview room. She states that she is "ragland wary" when asked to clarify she begins making statements that are paranoid in nature. We reviewed her current psychotropic medications. It appears that the Abilify has demonstrated very little efficacy over the course of her admission. We discussed transitioning her off of Abilify onto invega and she is agreeable. She indicates that she is eating well. She is attempting to attend groups. Staff report that she continues to demonstrate the same psychotic thoughts and behavior is when she was admitted. Mental status exam: The patient is an overweight female appearing her stated age. She is dressed in layers today. Eye contact is good. She does have a pressured quality in terms of speech. She demonstrates some tangential thinking. She spontaneously describes paranoid and persecutory thinking. In sight and judgment are impaired. She demonstrates no verbal or physical aggressiveness. She demonstrates no involuntary repetitive movements. She reports no suicidal or homicidal ideation intent or plan. She requires redirection on the mental health unit. Plan: The patient has demonstrated insufficient response to the Abilify over the course of this admission. We will cross taper her off of Abilify and initiate invega 3 mg at bedtime. We will continue the Lamictal as written and consider titrating that further. The patient requires continued psychiatric hospitalization due to the dysfunction caused by her psychosis and manic symptoms. We will monitor for safety. Vital signs reviewed.
[2018-12-26] MEDS: PALIPERIDONE 3 MG TAB.ER.24 PO SCH (21:25)
[2018-12-27] MEDS: ACETAMINOPHEN TAB 325 MG TAB PO PRN ×3 (03:05→22:59)
[2018-12-27] MEDS: LEVOTHYROXINE 50 MCG TAB PO SCH (06:04)
[2018-12-27] MEDS: ATORVASTATIN 10 MG TAB PO SCH (08:51)
[2018-12-27] MEDS: ATENOLOL 50 MG TAB PO SCH (08:51)
[2018-12-27] MEDS: ARIPiprazole 15 MG TAB PO SCH (08:51)
[2018-12-27] MEDS: amLODIPine 10 MG TAB PO SCH (08:52)
--- NOTE | 2018-12-27 09:00 | P.PN ---
Progress Note - Text Interval history: The patient is found in the hallway she follows me to an interview room. She again did not sleep well last night but does nap throughout the day. We started to cross taper her off of Abilify and placed her on an invega starting last evening. She has no questions or concerns regarding her medication. She states that she continues to attend groups. She is religiously preoccupied. She states that she is still "ragland wary". Mental status exam: The patient is an overweight female appearing her stated age. She is dressed in her own clothing wearing layers. She is carrying a blanket with her as well. She is pleasant cooperative easily directed. She demonstrates some disorganization of thought process specifically she is tangential. She demonstrates mandaen preoccupation as well as paranoid and persecutory thinking. She reports no suicidal or homicidal ideation. Again her symptoms of psychosis impair her insight and judgment. She demonstrates no verbal or physical aggressiveness. She has an expansive affect. She demonstrates no involuntary repetitive movements. Plan: The patient will continue on her current psychotropic medications. We will continue to adjust the Invega and Abilify as part of the cross titration process. We will monitor her for safety we will monitor her sleep at night. She is encouraged to participate in the milieu. Vital signs reviewed they're within normal limits.
[2018-12-27] MEDS: LORazepam 1 MG TAB PO PRN ×2 (13:04→22:08)
[2018-12-27] MEDS: MELATONIN 5 MG TABLET PO SCH (21:09)
[2018-12-27] MEDS: PALIPERIDONE 3 MG TAB.ER.24 PO SCH (21:10)
[2018-12-27] MEDS: lamoTRIgine 25 MG TAB PO SCH (21:10)
[2018-12-28] MEDS: LORazepam 1 MG TAB PO PRN ×3 (02:28→20:34)
[2018-12-28] MEDS: ACETAMINOPHEN TAB 325 MG TAB PO PRN ×3 (05:05→20:31)
[2018-12-28] MEDS: LEVOTHYROXINE 50 MCG TAB PO SCH (06:05)
[2018-12-28] MEDS: ATENOLOL 50 MG TAB PO SCH (09:16)
[2018-12-28] MEDS: ARIPiprazole 15 MG TAB PO SCH (09:16)
[2018-12-28] MEDS: ATORVASTATIN 10 MG TAB PO SCH (09:16)
[2018-12-28] MEDS: amLODIPine 10 MG TAB PO SCH (09:16)
--- NOTE | 2018-12-28 09:41 | P.PN ---
Progress Note - Text Interval history: The patient is found in group she follows me to an interview room. She reports some frustration with her peers. She indicates one of the male peers is "up to no good" when she is asked about her safety. She finds herself antagonized by a female peer and states "she thinks she's my doctor". She thinks that the Lamictal is causing weight gain. We discussed this concern. We again discussed the plan to cross taper off of Abilify and onto invega. She offers no opposition. She indicates she slept better last night staff reported she slept 3 hours. Mental status exam: The patient is an obese female appearing her stated age. She is dressed in hospital gowns and is covered with a bedsheet. She has a bright smiling affect that is expansive. She has exaggerated laughter at times. She reports concerns about being unsafe at times. She reports feelings of frustration and irritability related to peers. She reports no suicidal or homicidal ideation. She does continue to describe paranoid and persecutory thinking. He demonstrates no verbal or physical aggressiveness. She demonstrates no involuntary repetitive movements. Insight and judgment are still adversely impacted by current symptoms of psychosis. Plan: We will reduce the Abilify to 5 mg daily and we will increase the Invega to 6 mg at bedtime. We will monitor her for safety and encourage participation in the milieu. She has not demonstrated sufficient improvement and requires continued psychiatric hospitalization. She would be unsafe if discharged to a lesser level of care. Vital signs reviewed.
[2018-12-28] MEDS: PALIPERIDONE 6 MG TAB.ER.24 PO SCH (20:31)
[2018-12-28] MEDS: MELATONIN 5 MG TABLET PO SCH (20:31)
[2018-12-28] MEDS: lamoTRIgine 25 MG TAB PO SCH (20:31)
[2018-12-29] MEDS: ACETAMINOPHEN TAB 325 MG TAB PO PRN ×3 (01:31→19:10)
[2018-12-29] MEDS: LEVOTHYROXINE 50 MCG TAB PO SCH (05:13)
[2018-12-29] MEDS: LORazepam 1 MG TAB PO PRN ×2 (05:13→19:11)
[2018-12-29] MEDS: amLODIPine 10 MG TAB PO SCH (09:26)
[2018-12-29] MEDS: ATENOLOL 50 MG TAB PO SCH (09:27)
[2018-12-29] MEDS: ARIPiprazole 5 MG TAB PO SCH (09:27)
[2018-12-29] MEDS: ATORVASTATIN 10 MG TAB PO SCH (09:28)
--- NOTE | 2018-12-29 09:49 | P.PN ---
Progress Note - Text Interval history: The patient is found in her room she was sleeping she follows me to an interview room. She indicates she feels tired. She has no questions regarding her psychotropic medications and we again reviewed the upcoming changes. Again she did not sleep at night and she is sleeping during the day. She indicates that she ate breakfast. She has not been attending groups this morning. She describes feelings of being unsafe even on the mental health unit. Mental status exam: The patient is an obese female appearing her stated age. She is dressed in hospital gowns. She is pleasant cooperative she is a smiling affect throughout the session. She continues to have delusional thought mainly any paranoid and persecutory fashion as well as zoroastrianism preoccupation. She is endorsing no auditory or visual hallucinations. She is reporting no suicidal or homicidal ideation. Insight and judgment remain impaired. She continues to be distractible in terms of thought process. She can demonstrate some tangential thinking at times. She demonstrates no verbal or physical aggressiveness she demonstrates no involuntary repetitive movements. Plan: The patient will continue on her current psychotropic medication. We will discontinue the Abilify this weekend. We will titrate the Lamictal to 50 mg at bedtime. We will monitor her for safety and encourage participation in the milieu. She requires continued psychiatric hospitalization for symptoms of epi and psychosis. Idle signs reviewed.
[2018-12-29] MEDS: MELATONIN 5 MG TABLET PO SCH (20:46)
[2018-12-29] MEDS: PALIPERIDONE 6 MG TAB.ER.24 PO SCH (20:46)
[2018-12-29] MEDS: lamoTRIgine 25 MG TAB PO SCH (20:47)
[2018-12-30] MEDS: ACETAMINOPHEN TAB 325 MG TAB PO PRN ×4 (03:55→21:52)
[2018-12-30] MEDS: LORazepam 1 MG TAB PO PRN ×3 (03:58→20:36)
[2018-12-30] MEDS: LEVOTHYROXINE 50 MCG TAB PO SCH (05:52)
[2018-12-30] MEDS: ARIPiprazole 5 MG TAB PO SCH (09:09)
[2018-12-30] MEDS: ATENOLOL 50 MG TAB PO SCH (09:09)
[2018-12-30] MEDS: amLODIPine 10 MG TAB PO SCH (09:09)
[2018-12-30] MEDS: ATORVASTATIN 10 MG TAB PO SCH (09:10)
--- NOTE | 2018-12-30 14:10 | P.PN ---
Progress Note - Text Interval history: The patient is found in her room she follows me to an interview room. She indicates her mood is good. She states that she was out of her room this morning I have not seen her much this afternoon so far. She was recorded to a slept 4 hours last evening which is the most she slept at night during this hospitalization. She has no questions or concerns regarding the medication. She states that she was looking through a magazine and ripped out and add for a cell phone and put it under her pillow. She asks me today if that was meant for her. Mental status exam: The patient is an overweight female appearing her stated age. She is dressed in hospital gowns and is covered with a bedsheet. She is pleasant cooperative and easily directable. Eye contact is appropriate speech is fluent and spontaneous nonpressured. She reports no suicidal or homicidal ideation intent or plan. She demonstrates no verbal or physical aggressiveness. She demonstrates no involuntary repetitive movements. She does not spontaneously discussed the topic but states she is still concerned about witchcraft and sorcery. She did spontaneously asked me about an idea of reference. Insight and judgment still limited. Plan: The patient is demonstrating some mild improvement in that she is speaking of her symptoms of psychosis less spontaneously. We will continue the invega as written. We will monitor for any side effects. She is encouraged to fully participate in the milieu. We will monitor her for safety. We will continue monitoring vital signs.
[2018-12-30] MEDS: lamoTRIgine 25 MG TAB PO SCH (20:35)
[2018-12-30] MEDS: PALIPERIDONE 6 MG TAB.ER.24 PO SCH (20:35)
[2018-12-30] MEDS: MELATONIN 5 MG TABLET PO SCH (20:36)
[2018-12-31] MEDS: ACETAMINOPHEN TAB 325 MG TAB PO PRN ×2 (04:05→23:22)
[2018-12-31] MEDS: LEVOTHYROXINE 50 MCG TAB PO SCH (06:28)
[2018-12-31] MEDS: ATENOLOL 50 MG TAB PO SCH (08:52)
[2018-12-31] MEDS: ATORVASTATIN 10 MG TAB PO SCH (08:52)
[2018-12-31] MEDS: amLODIPine 10 MG TAB PO SCH (08:52)
--- NOTE | 2018-12-31 09:41 | P.PN ---
Progress Note - Text Interval history: The patient is found in the [facility] in group she follows me to an interview room. She states that she is having more significant arthritic pain throughout her body. She typically uses Advil at home. In terms of mood She reports feeling good today. Staff reported she slept 3 hours. She has been eating. She has no questions or concerns regarding her psychotropic medication. Mental status exam: The patient is an overweight female appearing her stated age. She is dressed in hospital gowns and wearing a sheet over top. She is pleasant cooperative. Eye contact is appropriate. She is smiling throughout the session she will have some exaggerated laughter at times. She reports no suicidal or homicidal ideation intent or plan. She endorses no auditory or visual hallucinations although they may persist. When asked about her previous thoughts of feeling unsafe she states "no those are gone now". Again minutes likely she is underreporting. She demonstrates no tangential thinking during our brief session today. No reports of any behavioral disturbance. Insight and judgment slowly improving. She demonstrates no verbal or physical aggressiveness she demonstrates no involuntary repetitive movements. Plan: The patient will continue on her current medication. We will continue to evaluate her acute safety risk. She reports no thoughts of self injury but just a week ago she had demonstrated some unsafe behavior that was concerning. I will consider titrating the Invega further if needed. Vital signs are reviewed they're within normal limits.
[2018-12-31] MEDS: IBUPROFEN 200 MG TAB PO PRN (10:50)
[2018-12-31] MEDS: lamoTRIgine 25 MG TAB PO SCH (20:26)
[2018-12-31] MEDS: PALIPERIDONE 6 MG TAB.ER.24 PO SCH (20:27)
[2018-12-31] MEDS: MELATONIN 5 MG TABLET PO SCH (20:27)
[2018-12-31] MEDS: LORazepam 1 MG TAB PO PRN (23:22)
[2019-01-01] MEDS: LEVOTHYROXINE 50 MCG TAB PO SCH (05:51)
[2019-01-01] MEDS: IBUPROFEN 200 MG TAB PO PRN ×2 (05:53→12:59)
[2019-01-01] MEDS: ATORVASTATIN 10 MG TAB PO SCH (09:00)
[2019-01-01] MEDS: amLODIPine 10 MG TAB PO SCH (09:00)
[2019-01-01] MEDS: ATENOLOL 50 MG TAB PO SCH (09:01)
[2019-01-01] MEDS: ACETAMINOPHEN TAB 325 MG TAB PO PRN ×2 (09:02→16:21)
[2019-01-01] MEDS: LORazepam 1 MG TAB PO PRN ×2 (09:05→16:21)
--- NOTE | 2019-01-01 09:51 | P.PN ---
Progress Note - Text Interval history: The patient is found in group she follows me to an interview room. She reports she is doing well. She slept only 2 hours last night but again she does sleep during the day. When asked about racing thoughts she states that she does feel pressured to do everything on time. She states that she figured out the "phone thing" referring to the idea of reference she spoke of yesterday. She remains compliant with her medication. We discussed transitioning to Invega Sustenna and she is agreeable. She has given social work a contact for a different daughter, Jie. Mental status exam: The patient is an overweight female appearing her stated age. She reports that her mood is good affect is bright and expansive. She is frequently smiling during the interaction. She reports no suicidal or homicidal ideation intent or plan. She does have some tangential thinking. She demonstrates no verbal or physical aggressiveness. She demonstrates no involuntary repetitive movements. Insight and judgment improved during the hospitalization but still limited. She is endorsing no auditory or visual hallucinations. She does continue to have some paranoid and persecutory thinking but she does not spontaneously describe it. Plan: The patient will continue on invega we will consider transitioning her to the Invega Sustenna injection. Social work is trying to contact a family member. We will continue to monitor the patient for safety she is encouraged participate in the milieu. She requires continued psychiatric hospitalization while she stabilizes. Vital signs reviewed.
[2019-01-01] MEDS: MELATONIN 5 MG TABLET PO SCH (20:40)
[2019-01-01] MEDS: PALIPERIDONE 6 MG TAB.ER.24 PO SCH (20:40)
[2019-01-01] MEDS: lamoTRIgine 25 MG TAB PO SCH (20:40)
[2019-01-02] MEDS: ACETAMINOPHEN TAB 325 MG TAB PO PRN ×2 (01:13→21:16)
[2019-01-02] MEDS: LORazepam 1 MG TAB PO PRN ×3 (01:13→23:35)
[2019-01-02] MEDS: LEVOTHYROXINE 50 MCG TAB PO SCH (06:04)
[2019-01-02] MEDS: IBUPROFEN 200 MG TAB PO PRN ×3 (06:06→23:35)
--- NOTE | 2019-01-02 08:54 | P.PN ---
Progress Note - Text Interval history: The patient is found in the hallway she follows me to an interview room. She indicates she had a rougher day yesterday due to other patients negative attitudes during group. Otherwise she continues to feel that she is improving. She states that she is looking forward to going home but states "I hope it safe there". When asked to specify she states "because of other people". Social work was able to reach one of her daughters via phone and provided some information regarding the patient's known baseline function. We reviewed the patient's psychotropic medications. We will initiate Invega Sustenna today. Mental status exam: The patient is an alert overweight female appearing her stated age. She is dressed in hospital attire and wearing a sheet over top. She reports her mood is not as good. He expresses some concerns about being unsafe upon discharge. She has a constricted affect today. She is verbose but directable. Thought process can still be tangential at times. She is reporting no suicidal or homicidal ideation intent or plan. She does spontaneously described thoughts of possibly being unsafe upon discharge and this concerns her. She reports no verbal or physical aggressiveness she demonstrates no involuntary repetitive movements. She continues to be oriented to person place and date. She denies experiencing any auditory or visual hallucinations. Plan: The patient will receive the Invega Sustenna injection today of 234 mg IM I will reduce the oral dose to 3 mg at bedtime. We will give the second dose in 4-7 days. We will continue to monitor her for safety and encourage full participation in the milieu. We will continue to monitor for any residual signs of psychosis and epi. Vital signs reviewed. She continues to sleep poorly at night and sleeps during the day to some extent we'll encourage increasing daytime activity.
[2019-01-02] MEDS: ATENOLOL 50 MG TAB PO SCH (09:19)
[2019-01-02] MEDS: ATORVASTATIN 10 MG TAB PO SCH (09:19)
[2019-01-02] MEDS: amLODIPine 10 MG TAB PO SCH (09:19)
[2019-01-02] MEDS ORDERED: PALIPERIDONE IM 234 MG/1.5 ML SYG IM ONE (10:00)
[2019-01-02 15:14] VITALS: BMI 37.8
[2019-01-02] MEDS: MELATONIN 5 MG TABLET PO SCH (21:16)
[2019-01-02] MEDS: lamoTRIgine 25 MG TAB PO SCH (21:16)
[2019-01-02] MEDS: PALIPERIDONE 3 MG TAB.ER.24 PO SCH (21:16)
[2019-01-03] MEDS: ACETAMINOPHEN TAB 325 MG TAB PO PRN ×2 (03:28→16:24)
[2019-01-03] MEDS: LEVOTHYROXINE 50 MCG TAB PO SCH (05:40)
[2019-01-03] MEDS: ATORVASTATIN 10 MG TAB PO SCH (07:37)
[2019-01-03] MEDS: ATENOLOL 50 MG TAB PO SCH (07:37)
[2019-01-03] MEDS: amLODIPine 10 MG TAB PO SCH (07:37)
[2019-01-03] MEDS: IBUPROFEN 200 MG TAB PO PRN (07:38)
--- NOTE | 2019-01-03 09:36 | P.PN ---
Progress Note - Text Interval history: The patient is found in her room she follows me to an interview room. She reports that her mood was rough this morning but it is improving. She has questions regarding her medication and those were addressed. She indicates that she continues to experience an auditory hallucination and states it will be "instantaneous". She states it will either be admitting or a number that she quickly hears. She feels safe here she is worried that she will not feel safe at home. She states that with a TV antenna a phone and pull cords she might be okay. She states that once home she is concerned about others trying to harm her or come into her apartment, she told on people. Mental status exam: The patient is an overweight female is pleasant cooperative. She has a bright expansive affect with exaggerated smiling and laughter. She reports feeling safe here in the hospital she describes brief hallucinations as noted above no visual hallucinations. No report of any behavioral disturbances. She demonstrates no verbal or physical aggressiveness she demonstrates no involuntary repetitive movements. She is dressed in hospital gowns and a sheet over top. She reports no suicidal or homicidal ideation intent or plan. Symptoms of psychosis are primarily paranoid nature where she is worried about her safety. Insight and judgment impaired. Plan: The patient will continue on her current medication. We will plan to give the next Invega Sustenna injection in the next 3-4 days. We will continue to monitor her for safety. She requires continued psychiatric hospitalization. Vital signs reviewed.
[2019-01-03] MEDS: lamoTRIgine 25 MG TAB PO SCH (20:08)
[2019-01-03] MEDS: LORazepam 1 MG TAB PO PRN (20:08)
[2019-01-03] MEDS: MELATONIN 5 MG TABLET PO SCH (20:08)
[2019-01-03] MEDS: PALIPERIDONE 3 MG TAB.ER.24 PO SCH (20:08)
[2019-01-04] MEDS: LORazepam 1 MG TAB PO PRN ×2 (03:40→21:39)
[2019-01-04] MEDS: ACETAMINOPHEN TAB 325 MG TAB PO PRN ×2 (03:40→17:58)
[2019-01-04] MEDS: LEVOTHYROXINE 50 MCG TAB PO SCH (05:39)
[2019-01-04] MEDS: amLODIPine 10 MG TAB PO SCH (07:46)
[2019-01-04] MEDS: ATORVASTATIN 10 MG TAB PO SCH (07:46)
[2019-01-04] MEDS: ATENOLOL 50 MG TAB PO SCH (07:46)
--- NOTE | 2019-01-04 10:21 | P.PN ---
Progress Note - Text Interval history: The patient is found in group she follows me to an interview room. She reports that her mood is fine. She states that she had some trouble sleeping last night however staff recorded she slept 4 hours. She does not feel tired this morning. She indicates that she is eating. She has no questions or concerns regarding her psychotropic medication. She indicates she feels safe here in the hospital. In terms of feeling safe outside of the hospital she states "I don't fear what man can do to me anymore". When asked to explain further she declines and just repeats the same statement. She does say that she doesn't want to be alone walking on the sidewalk and she can't take public transportation. Mental status exam: The patient is alert she is dressed in hospital gown she is covered with a sheet. Eye contact is appropriate. Again she's pleasant cooperative and easily directed. She reports no thoughts of harming herself or others. She reports feeling safe in the hospital she indicates she no longer has any paranoid thoughts regarding being outside of the hospital but quickly describes fears of being on the sidewalk alone or in a public bus. She demonstrates no verbal or physical aggressiveness. She demonstrates no involuntary repetitive movements. Insight and judgment slowly improving. Plan: The patient will continue on her current psychotropic medication. We will plan to give the second Invega Sustenna injection next week. We will monitor her for safety and encourage participation in the milieu. Vital signs reviewed.
[2019-01-04] MEDS: IBUPROFEN 200 MG TAB PO PRN ×2 (10:48→21:39)
[2019-01-04] MEDS: MELATONIN 5 MG TABLET PO SCH (21:38)
[2019-01-04] MEDS: lamoTRIgine 25 MG TAB PO SCH (21:38)
[2019-01-04] MEDS: PALIPERIDONE 3 MG TAB.ER.24 PO SCH (21:39)
[2019-01-05] MEDS: ACETAMINOPHEN TAB 325 MG TAB PO PRN ×2 (00:36→14:44)
[2019-01-05] MEDS: LEVOTHYROXINE 50 MCG TAB PO SCH (06:55)
[2019-01-05] MEDS: amLODIPine 10 MG TAB PO SCH (07:59)
[2019-01-05] MEDS: ATENOLOL 50 MG TAB PO SCH (07:59)
[2019-01-05] MEDS: ATORVASTATIN 10 MG TAB PO SCH (07:59)
[2019-01-05] MEDS: IBUPROFEN 200 MG TAB PO PRN ×2 (09:15→18:01)
--- NOTE | 2019-01-05 11:01 | P.PN ---
Progress Note - Text Progress Note Date: 01/05/19 Interval history: Patient was seen wandering the hallways and appeared to have a bright affect. Patient was directable and agreeable to seek a grant writer. Patient offered no new complaints and states that she is feeling "happy" today patient claims that she has been going to groups and trying to stay positive. Patient reports no overnight complaints and claims that the medications are helping her with her thoughts. Patient was agreeable to continue on with the second injection this coming week. She states that she slept well last night and has fair appetite and energy. At this time patient denies any suicidal or homicidal ideations intent or plan. Denies any Auditory or visual hallucinations. Patient denies any side effects from the medications and has been compliant with meds. Mental status exam: General Appearance: Patient appears to be stated age is alert, pleasant, and cooperative. Improving hygiene and grooming. Behavior: No agitated behavior. Patient is calm and directable appropriate behavior. Speech: Patient's speech is fluent and nonpressured. Mood/Affect: Mood is "happy", affect is congruent and bright Suicidality/Homicidality: Patient denies having any suicidal or homicidal ideation intent or plan. Perceptions: Patient denies any auditory or visual hallucinations. Though content/process: There is no evidence of any delusional thought content and thought process is linear and goal-directed. Memory and concentration: AOX3, grossly intact for the purposes of this session Judgment and insight: improving Assessment/Plan: Continue with current diagnosis. Patient continues to meet criteria for inpatient psychiatric admission for symptom stabilization and safety.Patient will be maintained on current psychotropic medication regimen. Patient is due for her second long-acting injection dose this coming week. Monitor for medication compliance and for any psychotropic medication side effects. Will continue to monitor ongoing response to treatment.
[2019-01-05] MEDS: lamoTRIgine 25 MG TAB PO SCH (21:03)
[2019-01-05] MEDS: PALIPERIDONE 3 MG TAB.ER.24 PO SCH (21:03)
[2019-01-05] MEDS: MELATONIN 5 MG TABLET PO SCH (21:03)
[2019-01-06] MEDS: ACETAMINOPHEN TAB 325 MG TAB PO PRN ×4 (00:43→20:53)
[2019-01-06] MEDS: LORazepam 1 MG TAB PO PRN ×2 (00:43→20:54)
[2019-01-06] MEDS: IBUPROFEN 200 MG TAB PO PRN (04:39)
[2019-01-06] MEDS: LEVOTHYROXINE 50 MCG TAB PO SCH (05:51)
[2019-01-06] MEDS: ATENOLOL 50 MG TAB PO SCH (08:44)
[2019-01-06] MEDS: ATORVASTATIN 10 MG TAB PO SCH (08:45)
[2019-01-06] MEDS: amLODIPine 10 MG TAB PO SCH (08:45)
--- NOTE | 2019-01-06 13:24 | P.PN ---
Progress Note - Text Progress Note Date: 01/06/19 Interval history: Patient was seen wandering the hallways after eating lunch and appeared to have a bright affect and was agreeable to speak to personal lines underwriter in the office. Patient offered no new complaints today however did state that last night "I couldn't sleep at all". Patient was noted by staff to have slept 4+ hours however. Patient claimed that the medications are helping her with her thoughts and is continuing to be compliant with the medications. Patient spoke about interacting with other patients on the unit and has been going to groups. Patient agrees that she will be ready for her next long-acting dose of the injection. She claims that she has fair appetite and energy. At this time patient denies any suicidal or homicidal ideations intent or plan. Denies any Auditory or visual hallucinations. Patient denies any side effects from the medications and has been compliant with meds. Mental status exam: General Appearance: Patient appears to be stated age is alert, pleasant, and cooperative. Improving hygiene and grooming. Behavior: No agitated behavior. Patient is calm and directable appropriate behavior. Speech: Patient's speech is fluent and nonpressured. Mood/Affect: Mood is "good", affect is congruent and bright Suicidality/Homicidality: Patient denies having any suicidal or homicidal ideation intent or plan. Perceptions: Patient denies any auditory or visual hallucinations. Though content/process: There is no evidence of any delusional thought content and thought process is linear and goal-directed. Memory and concentration: AOX3, grossly intact for the purposes of this session Judgment and insight: improving mildly. Assessment/Plan: Continue with current diagnosis. Patient continues to meet criteria for inpatient psychiatric admission for symptom stabilization and safety.Patient will be maintained on current psychotropic medication regimen. Patient is due for her second long-acting injection dose this coming week. Monitor for medication compliance and for any psychotropic medication side effects. Will continue to monitor ongoing response to treatment.
[2019-01-06] MEDS: MELATONIN 5 MG TABLET PO SCH (20:52)
[2019-01-06] MEDS: lamoTRIgine 25 MG TAB PO SCH (20:52)
[2019-01-06] MEDS: PALIPERIDONE 3 MG TAB.ER.24 PO SCH (20:52)
[2019-01-07] MEDS: IBUPROFEN 200 MG TAB PO PRN ×3 (01:44→21:21)
[2019-01-07] MEDS: LEVOTHYROXINE 50 MCG TAB PO SCH (06:48)
[2019-01-07] MEDS: amLODIPine 10 MG TAB PO SCH (09:04)
[2019-01-07] MEDS: ATENOLOL 50 MG TAB PO SCH (09:04)
[2019-01-07] MEDS: ACETAMINOPHEN TAB 325 MG TAB PO PRN ×3 (09:04→19:38)
[2019-01-07] MEDS: ATORVASTATIN 10 MG TAB PO SCH (09:04)
--- NOTE | 2019-01-07 11:26 | P.PN ---
Progress Note - Text Interval history: The patient is found in group she follows me to an interview room. She indicates her mood is good. She asked questions about her psychotropic medication. We do plan to give the next Invega Sustenna injection tomorrow. She has been sleeping approximate 4 hours a night which is the most we have recorded so far. She is attending groups. Staff report that she's been pleasant cooperative and directable. We feel that she has been describing symptoms of psychosis less spontaneously. Social work has placed a call with the patient's family again specifically her daughter to facilitate further discharge planning. Mental status exam: The patient is a morbidly obese female appearing her stated age. She is pleasant cooperative. Affect is bright. She has spontaneous speech. There is some exaggerated laughter but again she is easily directed in the session. She reports no suicidal or homicidal ideation intent or plan she reports no auditory or visual hallucinations. Symptoms of psychosis still persistent in residual form but she has not been acting on those thoughts or spontaneously describing them. Insight and judgment slowly improving. She demonstrates no repetitive involuntary movements. She demonstrates no verbal or physical aggressiveness. Plan: The patient will continue on her current medications we will give the Invega Sustenna injection tomorrow of 156 mg. Vital signs reviewed. I anticipate she will be appropriate for discharge sometime this week once we coordinate more with her family and set up outpatient services. We will continue to monitor her for safety.
[2019-01-07] MEDS: LORazepam 1 MG TAB PO PRN (19:38)
[2019-01-07] MEDS: lamoTRIgine 25 MG TAB PO SCH (21:21)
[2019-01-07] MEDS: PALIPERIDONE 3 MG TAB.ER.24 PO SCH (21:21)
[2019-01-07] MEDS: MELATONIN 5 MG TABLET PO SCH (21:22)
[2019-01-08] MEDS: LORazepam 1 MG TAB PO PRN ×2 (02:59→17:32)
[2019-01-08] MEDS: ACETAMINOPHEN TAB 325 MG TAB PO PRN ×3 (02:59→18:48)
[2019-01-08] MEDS: LEVOTHYROXINE 50 MCG TAB PO SCH (05:55)
[2019-01-08] MEDS: IBUPROFEN 200 MG TAB PO PRN ×3 (05:55→21:03)
[2019-01-08] MEDS ORDERED: PALIPERIDONE IM 156 MG/ML SYG IM ONE (09:00)
[2019-01-08] MEDS: ATORVASTATIN 10 MG TAB PO SCH (09:09)
[2019-01-08] MEDS: ATENOLOL 50 MG TAB PO SCH (09:09)
[2019-01-08] MEDS: amLODIPine 10 MG TAB PO SCH (09:09)
--- NOTE | 2019-01-08 10:13 | P.PN ---
Progress Note - Text Interval history: The patient is found in group she follows me to an interview room. She indicates her mood is good. She reports no racing thoughts. She indicates feeling safe here in the hospital. When asked about her safety outside of the hospital she feels that she should be okay. She again indicates she does not want to ride the bus alone. She has no questions or concerns regarding her psychotropic medication. She continues to nap during the day she slept approximately 3 hours last night. She is eating she is attending to her hygiene. She has been attending groups. Social work continues to attempt contact with family members namely her daughters. Mental status exam: The patient is an overweight female appearing her stated age. She has adequate hygiene and fair grooming. She is pleasant cooperative and easily directed. She reports her mood is good affect is bright. Her affect appears to be less expansive than previous days. She is reporting no acute suicidal ideation intent or plan she reports no homicidal ideation intent or plan. It seems that her symptoms of psychosis are slowly improving. They may persist in residual form. She demonstrates no verbal or physical aggressiveness she demonstrates no involuntary repetitive movements. Insight and judgment are slowly improving. Plan: The patient will continue on her current medications. We will monitor her for safety. We will continue to reach out to family to arrange a support meeting if possible. Given her diagnosis it appears that she is clinically stabilizing and may be appropriate for discharge this week. We will encourage full participation in the milieu we will continue to monitor vital signs.
[2019-01-08] MEDS: lamoTRIgine 25 MG TAB PO SCH (21:01)
[2019-01-08] MEDS: MELATONIN 5 MG TABLET PO SCH (21:01)
[2019-01-08] MEDS: PALIPERIDONE 3 MG TAB.ER.24 PO SCH (21:01)
[2019-01-09] MEDS: ACETAMINOPHEN TAB 325 MG TAB PO PRN ×4 (00:22→17:57)
[2019-01-09 00:54] VITALS: RESP 18
[2019-01-09] MEDS: LORazepam 1 MG TAB PO PRN ×3 (02:01→21:24)
[2019-01-09] MEDS: IBUPROFEN 200 MG TAB PO PRN ×2 (04:38→15:28)
[2019-01-09] MEDS: LEVOTHYROXINE 50 MCG TAB PO SCH (06:01)
[2019-01-09] MEDS: ATORVASTATIN 10 MG TAB PO SCH (09:18)
[2019-01-09] MEDS: amLODIPine 10 MG TAB PO SCH (09:19)
[2019-01-09] MEDS: ATENOLOL 50 MG TAB PO SCH (09:19)
--- NOTE | 2019-01-09 10:55 | P.PN ---
Progress Note - Text Interval history: The patient is found in the hallway she follows me to an interview room. She indicates her mood is good. She reportedly slept 4 hours last evening. Staff report that the patient has been pleasant and cooperative. Social work continues to try to reach family members to coordinate discharge planning. The patient has no questions or concerns regarding her psychotropic medication. She is looking forward to being discharged soon. Mental status exam: The patient is an obese female appearing her stated age. She is pleasant cooperative. She is dressed in her own clothing hygiene grooming adequate. She indicates her mood is good affect is bright. She has spontaneous speech. She demonstrates no tangential thinking loose associations or flight of ideas. She appropriately response to questions asked. She is no longer spontaneously describing any paranoid or persecutory thoughts. Those may persist in residual form however. There is no objective evidence of psychosis as she participated in the conversation. Insight and judgment are improving. She demonstrates no verbal or physical aggressiveness she demonstrates no involuntary repetitive movements. Plan: The patient will be continued on her current medication however we will discontinue the oral Invega. We will plan to discharge her in the next 1-2 days. She will follow up with community mental health and have ACT services. Vital signs reviewed. We will continue to monitor her for safety. Social work will continue to attempt to collaborate with her family.
[2019-01-09] MEDS: MELATONIN 5 MG TABLET PO SCH (21:22)
[2019-01-09] MEDS: lamoTRIgine 25 MG TAB PO SCH (21:22)
[2019-01-10] MEDS: IBUPROFEN 200 MG TAB PO PRN (03:39)
[2019-01-10 03:44] VITALS: TEMP 97.7
[2019-01-10] MEDS: ACETAMINOPHEN TAB 325 MG TAB PO PRN (05:49)
[2019-01-10] MEDS: LORazepam 1 MG TAB PO PRN ×2 (05:49→15:22)
[2019-01-10] MEDS: LEVOTHYROXINE 50 MCG TAB PO SCH (05:49)
[2019-01-10] MEDS: ATORVASTATIN 10 MG TAB PO SCH (09:15)
[2019-01-10] MEDS: amLODIPine 10 MG TAB PO SCH (09:15)
[2019-01-10] MEDS: ATENOLOL 50 MG TAB PO SCH (09:15)
[2019-01-10 09:17] VITALS: BP 133/93; PULSE 112
--- NOTE | 2019-01-10 09:52 | P.DS ---
Providers Date of admission: 12/14/18 14:52 Expected date of discharge: 01/10/19 Attending physician: Augustine Garvin Consults: 12/14/18 13:43 Consult Physician Routine Consulting Provider: Bj Lara Jr Consult Reason/Comments: Follow Up H & P Do you want consulting provider notified?: Yes Primary care physician: Bj Lara - Discharge Diagnosis(es) (1) Schizoaffective disorder, bipolar type Current Visit: Yes Status: Acute Priority: High Hospital Course: Brief summary of admission note: This patient is a 63-year-old female who is admitted to the mental health unit involuntarily for acute symptoms of psychosis and epi. The petition had stated the patient believes "witches and warlocks are trying to drug rate and prostitute us. She said she fights them every day." The patient described very poor sleep energy had been increased she felt euphoric at times. For full details please refer to Dr. Jacobs's psychiatric evaluation dated 12/15/2018. Summary of hospital course: The patient was initially evaluated by Dr. Jacobs. She was diagnosed with schizoaffective disorder bipolar type and started on Abilify 10 mg daily. I assumed care of the patient the following Monday. We did continue the Abilify and eventually the dose was titrated to 30 mg daily. After numerous days of using that medication however there was no observed clinical benefit. We decided to cross taper off of the Abilify and initiate invega which was titrated to 6 mg at bedtime. After numerous days of being on that medication and adding Lamictal she began to stabilize. She has received both initiation injections of invega sustenna and her next dose is due 02/05/2019. The patient remained pleasant and cooperative throughout the entire stay. She may still have residual symptoms of psychosis but she is no longer spontaneously speaking of them. Her symptoms of epi have improved greatly. She is able to appropriately participate in a conversation and is able to remain seated in the chair. She has interacted well with peers. She demonstrated no aggressive behavior. She was seen by internal medicine for routine history and physical exam. Social work met with the patient numerous times regarding discharge planning and completing their psychosocial assessment. Several attempts were made to involve her daughters. Social work was able to finally reach them to facilitate a support meeting and transportation home. We discussed the importance of her participating with the act team with [facility]. At this time the patient is sufficiently stabilized to transition to outpatient care. The patient was admitted on a petition and clinical certificate a second clinical certificate was completed. He deferral conference was arranged and at that meeting she deferred a court hearing. Mental status exam: The patient is an obese female appearing her stated age. She is dressed in her own clothing. Hygiene grooming adequate. Eye contact is appropriate speech is fluent spontaneous nonpressured. Affect is bright but much more appropriate compared to time of admission. She reports her mood is good she denies having any hopelessness thinking she endorses no suicidal ideation intent or plan. She endorses no homicidal ideation intent or plan. She is reporting no auditory or visual hallucinations or any specific delusions. I suspect that she will still has some residual roman catholic type and paranoid delusions but she is no longer speaking of the spontaneously. Her function has improved greatly as her symptoms of psychosis are attenuated. She demonstrates no verbal or physical aggressiveness she demonstrates no involuntary repetitive movements. She is oriented to person place and date. Impressions 1. Schizoaffective disorder bipolar type Plan: The patient will be discharged mental health unit today to return in her own apartment. She will be screened by [facility] for act team services. She will follow up with [facility] for outpatient mental healthcare. She will continue on Lamictal 50 mg at bedtime this may require further titration. She has received both initiation doses of invega sustenna and her next dose will be due on 02/05/2019 using the 117 mg strength. At this time there is no imminent safety risk the patient is appropriate for transition to outpatient care. Social work has been attempting to contact the patient's family to arrange a support meeting and transportation at the time of discharge. The patient is instructed to return to the hospital with any acute safety concerns. Patient Condition at Discharge: Stable Plan - Discharge Summary Discharge Rx Participant: No New Discharge Prescriptions: New lamoTRIgine [LaMICtal] 50 mg PO HS #60 tab Paliperidone IM [Invega Sustenna] 117 mg IM Q28D #1 syr Continue Levothyroxine Sodium [Synthroid] 50 mcg PO DAILY amLODIPine BESYLATE [Amlodipine Besylate] 10 mg PO DAILY Atorvastatin Calcium [Lipitor] 10 mg PO DAILY Atenolol [Tenormin] 50 mg PO DAILY Discharge Medication List Levothyroxine Sodium [Synthroid] 50 mcg PO DAILY 08/05/15 [History] amLODIPine BESYLATE [Amlodipine Besylate] 10 mg PO DAILY 08/05/15 [History] Atenolol [Tenormin] 50 mg PO DAILY 12/14/18 [History] Atorvastatin Calcium [Lipitor] 10 mg PO DAILY 12/14/18 [History] Paliperidone IM [Invega Sustenna] 117 mg IM Q28D #1 syr 01/10/19 [Rx] lamoTRIgine [LaMICtal] 50 mg PO HS #60 tab 01/10/19 [Rx] Follow up Appointment(s)/Referral(s): [facility] [Outside] - 01/16/19 8:30 am (Appointment w/ Carolyn) Bj Lara Jr, [Primary Care Provider] - 1-2 days Activity/Diet/Wound Care/Special Instructions: Activity and diet as tolerated. No guns or weapons in the home. Refrain from alcohol and street drugs not prescribed by your physicians. Take all medications as prescribed, and attend all follow up appointments as scheduled. If in need of medication refills, please go to your Primary care physician, or your out patient psychiatric provider. If in crisis, please go to the nearest ER for an evaluation, or call .
== END 2019-01-10 11:58 | disposition home or self-care (01) | DRG 885 ==
LOC: EC 05:18 → 3MHU 14:52
PROVIDERS: ADMIT Psychiatry & Neurology Psychiatry; ATTEND Psychiatry & Neurology Psychiatry
DX: F25.0 Schizoaffective disorder, bipolar type (principal); E03.9 Hypothyroidism, unspecified; E66.9 Obesity, unspecified; Z68.38 Body mass index [BMI] 38.0-38.9, adult; E78.2 Mixed hyperlipidemia; F17.210 Nicotine dependence, cigarettes, uncomplicated; H54.62 Unqualified visual loss, left eye, normal vision right eye; I10 Essential (primary) hypertension; Z79.890 Hormone replacement therapy; Z79.899 Other long term (current) drug therapy; Z81.8 Family history of other mental and behavioral disorders; Z82.49 Family history of ischemic heart disease and other diseases of the circulatory system; Z83.3 Family history of diabetes mellitus; Z83.518 Family history of other specified eye disorder; Z98.51 Tubal ligation status; E78.00 Pure hypercholesterolemia, unspecified
CPT/HCPCS: 80053; 80061; 82075; 82248; 83036; 84443; 85025; 96372; 99285

== ENCOUNTER 2019-07-10 11:56 | Inpatient (IN) | payer MEDICAID, OTHER ==
--- NOTE | 2019-07-10 12:22 | ED ---
General Adult HPI - General Source: patient Mode of arrival: ambulatory Limitations: no limitations <VioletteKarliezachary Hernandez - Last Filed: 07/10/19 15:06> <Walter Tariq - Last Filed: 07/10/19 16:11> - General Chief complaint: Psychiatric Symptoms Stated complaint: Mental Health Time Seen by Provider: 07/10/19 11:59 - History of Present Illness Initial comments: Dictation was produced using [employer] dictation software. please excuse any grammatical, word or spelling errors. This patient was cared for during a federal and state declared state of emergency secondary to Covid 19 Chief Complaint: 63-year-old female sent in by primary care physician for psychotic behavior. History of Present Illness: Patient is a 63-year-old female she was told to come to the emergency department by her primary care physician. I received a call from Dr. Lara who saw patient in the office earlier today. He reports that patient was showing very bizarre personality symptoms. She allegedly does have psychiatric history. She does follow up with [facility]. When asked why she was brought to the emergency department she reports that "the Lord brought her here." She denies any medical problems however she does report feeling opressed. She is not able to explain and better detail above who or what is depressing her. She denies any suicidal or homicidal ideation. Denies any visual or auditory hallucinations. She does like people are out to get her The ROS documented in this emergency department record has been reviewed and confirmed by me. Those systems with pertinent positive or negative responses have been documented in the HPI. All other systems are other negative and/or no ncontributory. PHYSICAL EXAM: General Impression: Alert and oriented x3, not in acute distress HEENT: Normocephalic atraumatic, extra-ocular movements intact, pupils equal and reactive to light bilaterally, mucous membranes moist. Cardiovascular: Heart regular rate and rhythm Chest: Able to complete full sentences, no retractions, no tachypnea Abdomen: abdomen soft, non-tender, non-distended, no organomegaly Musculoskeletal: Pulses present and equal in all extremities, no peripheral edema Motor: no focal deficits noted Neurological: CN II-XII grossly intact, no focal motor or sensory deficits noted Skin: Intact with no visualized rashes Psych: Paranoid, tangential speech ED course: 63-year-old female presents with clinical presentation consistent with acute psychosis. vital signs upon arrival are within acceptable limits. EKG interpretation: Ventricular rate 75, normal sinus rhythm,. Interval 154, QRS 100, QTC 435. No IN prolongation, no QTC prolongation, no ST or T-wave changes noted. Overall, this EKG is unremarkable (Steve Oakes) - Related Data Home Medications Medication Instructions Recorded Confirmed Levothyroxine Sodium [Synthroid] 50 mcg PO DAILY 08/05/15 07/10/19 amLODIPine BESYLATE [Amlodipine 10 mg PO DAILY 08/05/15 07/10/19 Besylate] Atenolol [Tenormin] 50 mg PO DAILY 12/14/18 07/10/19 Atorvastatin Calcium [Lipitor] 10 mg PO DAILY 12/14/18 07/10/19 Benztropine Mesylate [Cogentin] 0.5 mg PO TID PRN 07/10/19 07/10/19 L.acidoph,Paracasei, B.lactis 1 cap PO DAILY 07/10/19 07/10/19 [Probiotic] Paliperidone IM [Invega Sustenna] 156 mg IM Q28D 07/10/19 07/10/19 Allergies Allergy/AdvReac Type Severity Reaction Status Date / Time ibuprofen [From Motrin] Allergy Swelling Verified 07/10/19 14:01 NSAIDS (Non-Steroidal Allergy Rash/Hives Verified 07/10/19 14:01 Anti-Inflamma Review of Systems ROS Other: All systems not noted in ROS Statement are negative. <Steve Oakes - Last Filed: 07/10/19 15:06> ROS Other: All systems not noted in ROS Statement are negative. <Walter Tariq - Last Filed: 07/10/19 16:11> ROS Statement: Those systems with pertinent positive or pertinent negative responses have been documented in the HPI. Past Medical History Past Medical History: Hypertension, Thyroid Disorder Additional Past Medical History / Comment(s): Blind in the left eye from History of Any Multi-Drug Resistant Organisms: None Reported Past Surgical History: Tubal Ligation Past Anesthesia/Blood Transfusion Reactions: No Reported Reaction Past Psychological History: Anxiety, Bipolar, Depression, Schizophrenia Smoking Status: Current every day smoker Past Alcohol Use History: None Reported Past Drug Use History: None Reported - Past Family History Father Family Medical History: Unable to Obtain Additional Family Medical History / Comment(s): Father is alive at age 86 with history of diabetes. Mother Additional Family Medical History / Comment(s): Mother is alive at age 85 with history of hypertension, temporal arteritis, peripheral vascular disease status post carotid surgery, blindness in the left eye. Sister(s) Additional Family Medical History / Comment(s): Patient has 4 sisters with no major medical problems. Patient has 3 daughters with no major medical problems. <Steve Oakes - Last Filed: 07/10/19 15:06> General Exam Limitations: no limitations <Steve Oakes - Last Filed: 07/10/19 15:06> Course Vital Signs 07/10/19 12:05 Temperature 98.0 F Pulse Rate 79 Respiratory 18 Rate Blood Pressure 94/60 O2 Sat by Pulse 97 Oximetry Medical Decision Making - Lab Data Result diagrams: 07/10/19 12:30 07/10/19 12:30 <Steve Oakes - Last Filed: 07/10/19 15:06> - Lab Data Result diagrams: 07/10/19 12:30 07/10/19 12:30 <Walter Tariq - Last Filed: 07/10/19 16:11> - Medical Decision Making Laboratory evaluation obtained. CBC, metabolic panel, alcohol is negative. Patient medically for EPS evaluation. The patient is signed out to Dr. Tariq for follow-up of EPS recommendation. (Steve Oakes) - Lab Data Lab Results 07/10/19 07/10/19 Range/Units 12:30 12:30 WBC 9.7 (3.8-10.6) k/uL RBC 4.34 (3.80-5.40) m/uL Hgb 14.6 (11.4-16.0) gm/dL Hct 42.8 (34.0-46.0) % MCV 98.5 (80.0-100.0) fL MCH 33.6 (25.0-35.0) pg MCHC 34.1 (31.0-37.0) g/dL RDW 12.8 (11.5-15.5) % Plt Count 223 (150-450) k/uL Neutrophils % 58 % Lymphocytes % 30 % Monocytes % 8 % Eosinophils % 1 % Basophils % 0 % Neutrophils # 5.7 (1.3-7.7) k/uL Lymphocytes # 2.9 (1.0-4.8) k/uL Monocytes # 0.8 (0-1.0) k/uL Eosinophils # 0.1 (0-0.7) k/uL Basophils # 0.0 (0-0.2) k/uL Sodium 138 (137-145) mmol/L Potassium 5.0 (3.5-5.1) mmol/L Chloride 109 H (98-107) mmol/L Carbon Dioxide 18 L (22-30) mmol/L Anion Gap 11 mmol/L BUN 14 (7-17) mg/dL Creatinine 0.62 (0.52-1.04) mg/dL Est GFR (CKD-EPI)AfAm >90 (>60 ml/min/1.73 sqM) Est GFR (CKD-EPI)NonAf >90 (>60 ml/min/1.73 sqM) Glucose 98 (74-99) mg/dL Calcium 9.6 (8.4-10.2) mg/dL Serum Alcohol <10 mg/dL Disposition <Steve Oakes - Last Filed: 07/10/19 15:06> Time of Disposition: 16:11 <Walter Tariq - Last Filed: 07/10/19 16:11> Clinical Impression: Acute psychosis Disposition: ADMITTED IP TO THIS HOSP Referrals: Bj Lara Jr, DO [Primary Care Provider] - 1-2 days
[2019-07-10 12:54] LABS: Basophils % (A) 0 %; Eosinophils # (A) 0.1 k/uL (0-0.7); Eosinophils % (A) 1 %; HCT 42.8 % (34.0-46.0); HGB 14.6 gm/dL (11.4-16.0); Lymphocytes # (A) 2.9 k/uL (1.0-4.8); Lymphocytes % (A) 30 %; MCH 33.6 pg (25.0-35.0); MCHC 34.1 g/dL (31.0-37.0); MCV 98.5 fL (80.0-100.0); Mean Platelet Volume 7.5; Monocytes # (A) 0.8 k/uL (0-1.0); Monocytes % (A) 8 %; Neutrophils # (A) 5.7 k/uL (1.3-7.7); Neutrophils % (A) 58 %; Platelet Count 223 k/uL (150-450); RBC 4.34 m/uL (3.80-5.40); RDW 12.8 % (11.5-15.5); WBC 9.7 k/uL (3.8-10.6)
[2019-07-10 13:02] LABS: African American GFR (CKD) >90 (>60 ml/min/1.73 sqM); Alcohol <10 mg/dL; Anion Gap 11 mmol/L; Blood Urea Nitrogen 14 mg/dL (7-17); Calcium 9.6 mg/dL (8.4-10.2); Carbon Dioxide 18 mmol/L (22-30); Chloride 109 mmol/L (98-107); Glucose 98 mg/dL (74-99); Non-African American GFR(CKD) >90 (>60 ml/min/1.73 sqM); Sodium 138 mmol/L (137-145)
[2019-07-10] MEDS ORDERED: ACETAMINOPHEN TAB 325 MG TAB PO STA (13:22)
[2019-07-10] MEDS ORDERED: MAG HYDROX/AL HYDROX/SIMETH 30 ML CUP PO PRN (16:46)
[2019-07-10] MEDS ORDERED: MAGNESIUM HYDROXIDE 2,400 MG/10 ML CUP PO PRN (16:46)
[2019-07-10] MEDS ORDERED: ZIPRASIDONE 20 MG VIAL IM PRN (16:46)
[2019-07-10] MEDS ORDERED: BENZTROPINE MESYLATE 0.5 MG TAB PO PRN (20:48)
[2019-07-11] MEDS: LEVOTHYROXINE 50 MCG TAB PO SCH (05:29)
[2019-07-11] MEDS: amLODIPine 10 MG TAB PO SCH (09:12)
[2019-07-11] MEDS: ATORVASTATIN 10 MG TAB PO SCH (09:12)
[2019-07-11] MEDS: ATENOLOL 50 MG TAB PO SCH (09:12)
--- NOTE | 2019-07-11 11:58 | P.HP ---
Psychiatric H&P - . H&P Date: 07/11/19 History & Physical: Allergies Allergy/AdvReac Type Severity Reaction Status Date / Time ibuprofen From Motrin Allergy Swelling Verified 07/10/19 14:01 NSAIDS (Non-Steroidal Allergy Rash/Hives Verified 07/10/19 14:01 Anti-Inflamma Vital Signs Temp 97.9 F 07/11/19 07:37 Pulse 117 H 07/11/19 09:15 Resp 18 07/11/19 07:37 BP 124/66 07/11/19 09:15 Pulse Ox 93 L 07/11/19 07:37 Intake & Output 07/10/19 07/11/19 07/11/19 18:59 06:59 18:59 Weight 104.1 kg Laboratory Last Values WBC 9.7 k/uL (3.8-10.6) 07/10/19 12:30 RBC 4.34 m/uL (3.80-5.40) 07/10/19 12:30 Hgb 14.6 gm/dL (11.4-16.0) 07/10/19 12:30 Hct 42.8 % (34.0-46.0) 07/10/19 12:30 MCV 98.5 fL (80.0-100.0) 07/10/19 12:30 MCH 33.6 pg (25.0-35.0) 07/10/19 12:30 MCHC 34.1 g/dL (31.0-37.0) 07/10/19 12:30 RDW 12.8 % (11.5-15.5) 07/10/19 12:30 Plt Count 223 k/uL (150-450) 07/10/19 12:30 Neutrophils % 58 % 07/10/19 12:30 Lymphocytes % 30 % 07/10/19 12:30 Monocytes % 8 % 07/10/19 12:30 Eosinophils % 1 % 07/10/19 12:30 Basophils % 0 % 07/10/19 12:30 Neutrophils # 5.7 k/uL (1.3-7.7) 07/10/19 12:30 Lymphocytes # 2.9 k/uL (1.0-4.8) 07/10/19 12:30 Monocytes # 0.8 k/uL (0-1.0) 07/10/19 12:30 Eosinophils # 0.1 k/uL (0-0.7) 07/10/19 12:30 Basophils # 0.0 k/uL (0-0.2) 07/10/19 12:30 Sodium 138 mmol/L (137-145) 07/10/19 12:30 Potassium 5.0 mmol/L (3.5-5.1) 07/10/19 12:30 Chloride 109 mmol/L (98-107) H 07/10/19 12:30 Carbon Dioxide 18 mmol/L (22-30) L 07/10/19 12:30 Anion Gap 11 mmol/L 07/10/19 12:30 BUN 14 mg/dL (7-17) 07/10/19 12:30 Creatinine 0.62 mg/dL (0.52-1.04) 07/10/19 12:30 Est GFR (CKD-EPI)AfAm >90 (>60 ml/min/1.73 sqM) 07/10/19 12:30 Est GFR (CKD-EPI)NonAf >90 (>60 ml/min/1.73 sqM) 07/10/19 12:30 Glucose 98 mg/dL (74-99) 07/10/19 12:30 Calcium 9.6 mg/dL (8.4-10.2) 07/10/19 12:30 Triglycerides 99 mg/dL (<150) 07/10/19 12:30 Cholesterol 151 mg/dL (<200) 07/10/19 12:30 LDL Cholesterol, Calc 83 mg/dL (0-99) 07/10/19 12:30 HDL Cholesterol 48 mg/dL (40-60) 07/10/19 12:30 TSH 0.376 mIU/L (0.465-4.680) L 07/10/19 12:30 Serum Alcohol <10 mg/dL 07/10/19 12:30 07/11/19 10:43 IDENTIFYING DATA: Patient is a 63-year-old female with a chronic history of schizophrenia, is and lives alone in an apartment and has 3 daughters. HPI: Patient presented to the hospital at the direction of her time in her care physician for "bizarre symptoms". As per ER report states that patient claims that the "Lord brought her here" when asked why she came to the hospital. Patient also at that time endorsed depression and paranoia. Patient was last discharged from the mental health unit in 11/2018 and was placed on Invega Sustenna 117 mg and had been titrated up to a dose of 156 mg monthly. Patient claims that she was "taking too much of my Lamictal and felt that I was under the spell of witchcraft". She claims that she has been feeling like this for several weeks. She did endorse some paranoia as well as home. She claims that she felt certain people were "putting me on a curse". She claims that she does not feel that way at this time. She states that her last injection of Invega Sustenna was on June 17 and claims that she gets it monthly. She states that her "legs twitch" when she is on the medication and she is walking. At this time she is not endorsing paranoia and claims that her mood is "good" and denies any depression. She claims that she sleeps in "catnaps" during the day and at night. She states her appetite is fair. Patient denies any suicidal or homicidal ideations intent or plan. At this time patient denies any auditory or visual hallucinations. Patient admits to using daily PAST PSYCHIATRIC HISTORY: Patient states that she has a history of schizophrenia and was following up with [facility]. Patient was previously on Lamictal 50 mg daily at bedtime, Invega Sustenna 156 mg every monthly. Her last psychiatric admission was in 11/2018. Denies any suicide attempts in the past. PMH: Hypertension, thyroid disorder, blind in her left eye ALLERGIES: as per EMR CHEMICAL DEPENDENCY HISTORY: as per HPI FAMILY PSYCHIATRIC/SUBSTANCE USE HISTORY: States that her aunt, uncle, cousin and sister all have schizophrenia. SOCIAL HISTORY: Patient was born and raised in [facility] [facility] and now currently lives in [place]. She lives in a apartment alone and has 3 daughters. She claims that she completed up to the 12th grade of school. She denies any legal history. MENTAL STATUS EXAM: General Appearance: Patient appears to be overweight, stated age is alert, directable, and attempts to cooperate. Patient appears to have poor hygiene and grooming. Behavior: Patient is seated without any agitated behavior. Attempts to cooperate. Speech: Patient's speech is fluent and nonpressured. Mood/Affect: Patient reports their mood is "okay", affect is congruent Suicidality/Homicidality: Patient denies having any homicidal ideation intent or plan. Denies any suicidal ideations intent or plan Perceptions: Patient denies any visual hallucinations and denies any auditory hallucinations Though content/process: Patient endorses delusions of witchcraft and being in a curse. Goal oriented, logical. Memory and concentration: AOX3, grossly intact for the purposes of this session. Can spell "WORLD" backwards Judgment and insight: Limited STRENGTHS/WEAKNESSES: strength is that patient is resilient. Weakness is that patient has poor judgment and has chronic mental illness INTELLECT: average IMPRESSIONS: Schizophrenia Nicotine dependence PLAN: -Patient is admitted to the MHU for stabilization of psychiatric symptoms and safety. Patient is currently on a active court order. Patient signed for medications consent and was placed in chart. -Medications : Will start patient on Invega by mouth 3 mg daily for psychosis. Patient is agreeable to receive Invega Sustenna dose prior to discharge. Will start melatonin 6 mg daily at bedtime for sleep. Switched Cogentin to 0.5 mg twice a day for EPS prophylaxis. -Will attempt to confirm last time patient received her Invega Sustenna injection and at what dose from her outpatient psychiatrist. -Ativan and Geodon PRN for agitation/aggression -Patient was informed of the risks, benefits and side effects of the medication and patient verbally consented to taking the medications. Patient signed med consent form and was placed in chart. -Internal Medicine consult to perform medical evaluation and physical. -NRT -nicotine gum. -SW on board for discharge planning. Encourage patient to participate in groups to work on coping skills. 07/11/19 11:50 07/11/19 11:57
[2019-07-11] MEDS: BENZTROPINE MESYLATE 0.5 MG TAB PO SCH ×2 (12:30→21:16)
[2019-07-11] MEDS: PALIPERIDONE 3 MG TAB.ER.24 PO SCH (12:30)
[2019-07-11] MEDS: NICOTINE POLACRILEX 2 MG GUM BUCCAL PRN ×2 (12:31→16:44)
--- NOTE | 2019-07-11 13:44 | P.HPIM ---
History of Present Illness H&P Date: 07/11/19 Chief Complaint: Increased psychotic behavior secondary to stopping behavioral meds This patient presented to my office, during the Federal state declared state of emergency secondary to covid-19, Ms. Medina is a 63-year-old female well-known to my practice has been in and out of the mental health unit and been on and off multiple meds for bipolar disorder potentially for schizoaffective disorder, and ultimately hasn't been following through. She has recently been on the Lamictal to 25 mg pills at night for mood swings would be my assumption, and she had been getting an injection of sustained release antipsychotic meds once a month which she stopped showing up for at [facility]. While I interviewed her and examined her in the office she would begin crying and discussing things that sends her from her daughters and grandchildren and 2 laughing and crying and asking me about my personal life and my life medications her daughter and my 's sister used to hang around in high school and every subject in between jabbering from topic to topic laughing and crying laughing hysterically patient did haven't to me that at night she was taking exits extensive amounts of her Lamictal she take one that she take to and that she take 3 then she take before that she take a handful I think she wasn't clear on which she was taking this medication for. She said sometimes and lately much of the time she had the sense of hopelessness and what I help her and she couldn't leave the house. I point-blank ask her as she was having suicidal thoughts she wouldn't come out and specifically say that however she did say that she had nothing to live for. She would commit to she would not commit to how long she had stopped taking her medicine she said she didn't couldn't remember however she denies overt homicidal and overt suicidal ideation, this patient also demonstrates certain amount of paranoia, he thinks people are out to get her , after approximately 30 minutes of difficult conversation from her I suggested that she come to the hospital given admitted to the mental health unit so we can reestablish her medications so the she can reasonably function outside facility and she seemed very excited about that and she told me in no uncertain terms that she felt much safer in the hospital. Review of Systems All systems: negative Ears, nose, mouth and throat: Reports as per HPI Cardiovascular: Reports as per HPI Respiratory: Reports as per HPI Gastrointestinal: Reports as per HPI Genitourinary: Reports as per HPI Menstruation: Reports as per HPI Musculoskeletal: Reports as per HPI Integumentary: Reports as per HPI Neurological: Reports as per HPI Psychiatric: Reports anxiety attacks, Reports confusion, Reports depression, Reports difficulty concentrating, Reports disorientation, Reports hopelessness, Reports insomnia, Reports mood swings, Reports sadness/tearfulness, Reports sleep disturbances Endocrine: Reports as per HPI Past Medical History Past Medical History: Hypertension, Memory Impairment, Thyroid Disorder Additional Past Medical History / Comment(s): Blind in the left eye from History of Any Multi-Drug Resistant Organisms: None Reported Past Surgical History: Tubal Ligation Past Anesthesia/Blood Transfusion Reactions: No Reported Reaction Past Psychological History: Anxiety (Patient had recent admission to the mental health unit she stated she believed last November), Bipolar, Depression, Schizophrenia Smoking Status: Current every day smoker Past Alcohol Use History: None Reported Past Drug Use History: None Reported - Past Family History Father Family Medical History: Unable to Obtain Additional Family Medical History / Comment(s): Father is alive at age 86 with history of diabetes. Mother Additional Family Medical History / Comment(s): Mother is alive at age 85 with history of hypertension, temporal arteritis, peripheral vascular disease status post carotid surgery, blindness in the left eye. Sister(s) Additional Family Medical History / Comment(s): Patient has 4 sisters with no major medical problems. Patient has 3 daughters with no major medical problems. Medications and Allergies Home Medications Medication Instructions Recorded Confirmed Type Levothyroxine Sodium [Synthroid] 50 mcg PO DAILY 08/05/15 07/10/19 History amLODIPine BESYLATE [Amlodipine 10 mg PO DAILY 08/05/15 07/10/19 History Besylate] Atenolol [Tenormin] 50 mg PO DAILY 12/14/18 07/10/19 History Atorvastatin Calcium [Lipitor] 10 mg PO DAILY 12/14/18 07/10/19 History Benztropine Mesylate [Cogentin] 0.5 mg PO TID PRN 07/10/19 07/10/19 History L.acidoph,Paracasei, B.lactis 1 cap PO DAILY 07/10/19 07/10/19 History [Probiotic] Paliperidone IM [Invega Sustenna] 156 mg IM Q28D 07/10/19 07/10/19 History Allergies Allergy/AdvReac Type Severity Reaction Status Date / Time ibuprofen [From Motrin] Allergy Swelling Verified 07/10/19 14:01 NSAIDS (Non-Steroidal Allergy Rash/Hives Verified 07/10/19 14:01 Anti-Inflamma Physical Exam Osteopathic Statement: *. No significant issues noted on an osteopathic structural exam other than those noted in the History and Physical/Consult. Vitals: Vital Signs Temp Pulse Pulse Resp BP BP Pulse Ox 07/11/19 09:15 117 H 124/66 07/11/19 07:37 97.9 F 95 18 152/70 93 L 07/10/19 23:00 98.7 F 07/10/19 18:02 97.2 F L 07/10/19 17:36 98.9 F 80 20 130/74 07/10/19 17:09 65 18 100/65 98 Intake and Output 07/10/19 07/11/19 07/11/19 22:59 06:59 14:59 Other: Weight 104.1 kg General: Patient's awake alert oriented 3 vital signs stable currently afebrile Patient recently appeared quite manic, and emotions were all over the place HEENT: [PERRL. EOMI. No pharyngeal erythema or exudate.] Neck: [No adenopathy.] Cardiac: [Heart regular in rate and rhythm. No S3. No S4. No clicks, rubs. No murmur.] Lungs: [Clear to auscultation bilaterally.] Abdomen: [No mass. No organomegaly. Bowel sounds presnt and normoactive in all 4 quadrants. Significant morbid obesity Extremes: [No edema no cyanosis no claudication normal pulses] : [] Musculoskeletal: [No joint erythema, edema or tenderness.] Skin: [No rash.] Neurologic: [No lateralizing deficits. CN II - XII grossly intact.] Lymphatic: [No adenopathy.] Results CBC & Chem 7: 07/10/19 12:30 07/10/19 12:30 Labs: Abnormal Lab Results - Last 24 Hours (Table) 07/10/19 Range/Units 12:30 TSH 0.376 L (0.465-4.680) mIU/L Thrombosis Risk Factor Assmnt - DVT/VTE Prophylaxis DVT/VTE Prophylaxis: Low risk, early ambulation encouraged Assessment and Plan (1) Noncompliance w/medication treatment due to intermit use of medication Current Visit: Yes Status: Acute Code(s): Z91.14 - PATIENT'S OTHER NONCOMPLIANCE WITH MEDICATION REGIMEN SNOMED Code(s): 551844996 (2) Acute psychosis Current Visit: Yes Status: Acute Code(s): F23 - BRIEF PSYCHOTIC DISORDER SNOMED Code(s): 58060368 (3) Acute anxiety Current Visit: No Status: Acute Code(s): F41.9 - ANXIETY DISORDER, UNSPECIFIED SNOMED Code(s): 84504324 (4) Depression Current Visit: No Status: Acute Code(s): F32.9 - MAJOR DEPRESSIVE DISORDER, SINGLE EPISODE, UNSPECIFIED SNOMED Code(s): 90733305 Plan: In no uncertain terms patient admitted to noncompliance with behavioral medications recent use date unknown Admission of intermittent depression anxiety with bouts of paranoia Patient states she is taking all other meds including her antihypertensive is as well as her statin Her blood pressure is well controlled it appears that she is been honest about that It was felt that this patient needed to be sent to the mental health unit at [facility] for adequate medication stabilization and observation Time with Patient: Greater than 30
[2019-07-11 14:19] LABS: Hemoglobin A1C 5.3 % (4.0-6.0)
[2019-07-11] MEDS: MELATONIN 3 MG TABLET PO SCH (21:16)
[2019-07-11] MEDS: LORazepam 1 MG TAB PO PRN (21:16)
[2019-07-12] MEDS: LEVOTHYROXINE 50 MCG TAB PO SCH (06:19)
[2019-07-12] MEDS: amLODIPine 10 MG TAB PO SCH (10:19)
[2019-07-12] MEDS: ATENOLOL 50 MG TAB PO SCH (10:19)
[2019-07-12] MEDS: ATORVASTATIN 10 MG TAB PO SCH (10:19)
[2019-07-12] MEDS: PALIPERIDONE 3 MG TAB.ER.24 PO SCH (10:20)
[2019-07-12] MEDS: BENZTROPINE MESYLATE 0.5 MG TAB PO SCH ×2 (10:20→20:37)
[2019-07-12] MEDS: NICOTINE POLACRILEX 2 MG GUM BUCCAL PRN (10:21)
--- NOTE | 2019-07-12 10:30 | P.PN ---
Progress Note - Text Progress Note Date: 07/12/19 Interval History: Patient was seen coming out of group this morning and was directable and agree able to speak with specifications writer in the office. She appears to be brighter in her affect today and was cooperative with the interview. She asked several questions to specifications writer about how he was doing. She claims that she slept well last night and throughout the night with no overnight complaints. She states that she has been taking her medications and denies any problems with them at this time. She states that she has been getting along with others on the unit. She continues to endorse "witchcraft" going on however states that "I'm going to wait for the investigation to be over and then I'll decide". She claims to have a fair appetite. At this time patient denies any suicidal or homical ideations, intent or plan. Patient denies any auditory, visual hallucinations. Patient denies any side effects from the medications and has been compliant with meds. Mental Status Exam: General Appearance: Patient appears to be overweight, stated age is alert, directable, and attempts to cooperate. Patient appears to have improving hygiene and grooming. Behavior: Patient is seated without any agitated behavior. Attempts to cooperate. Polite. Speech: Patient's speech is fluent and nonpressured. Mood/Affect: Patient reports their mood is "good", affect is congruent and euthymic. Suicidality/Homicidality: Patient denies having any homicidal ideation intent or plan. Denies any suicidal ideations intent or plan Perceptions: Patient denies any visual hallucinations and denies any auditory hallucinations Though content/process: Patient endorses delusions of witchcraft. Goal oriented, logical. Memory and concentration: AOX3, grossly intact for the purposes of this session Judgment and insight: Limited, mildly improving. Assessment Schizophrenia Nicotine dependence Plan: -Patient continues to meet criteria for inpatient psychiatric admission for symptom stabilization and safety. Patient is currently on a active court order. Patient signed for medications consent and was placed in chart. -Medications: Increased paliperidone by mouth to 6 mg daily for psychosis to be continued throughout the weekend. Patient will be transitioned onto Invega Sustenna prior to discharge. We'll await confirmation of patient's monthly dose and if this date to be increased. Continue melatonin 6 mg daily at bedtime for sleep. Continue with Cogentin 0.5 mg twice a day for EPS prophylaxis. -When necessary Ativan and Geodon for agitation/aggression. -NRT - nicotine patch and gum. -SW on board for discharge planning. Encouraged the patient to participate in milieu.
[2019-07-12] MEDS: NICOTINE 14MG/24HR PATCH TRANSDERM SCH (10:51)
[2019-07-12] MEDS: MELATONIN 3 MG TABLET PO SCH (20:37)
[2019-07-13] MEDS: LEVOTHYROXINE 50 MCG TAB PO SCH (05:58)
[2019-07-13] MEDS: ATENOLOL 50 MG TAB PO SCH (09:03)
[2019-07-13] MEDS: ATORVASTATIN 10 MG TAB PO SCH (09:06)
[2019-07-13] MEDS: amLODIPine 10 MG TAB PO SCH (09:06)
[2019-07-13] MEDS: NICOTINE 14MG/24HR PATCH TRANSDERM SCH (09:07)
[2019-07-13] MEDS: BENZTROPINE MESYLATE 0.5 MG TAB PO SCH ×2 (09:07→20:56)
[2019-07-13] MEDS: PALIPERIDONE 6 MG TAB.ER.24 PO SCH (09:07)
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
[2019-07-13] MEDS: MELATONIN 3 MG TABLET PO SCH (20:56)
[2019-07-14] MEDS: LORazepam 1 MG TAB PO PRN (03:57)
[2019-07-14] MEDS: LEVOTHYROXINE 50 MCG TAB PO SCH (05:52)
[2019-07-14] MEDS: amLODIPine 10 MG TAB PO SCH (09:20)
[2019-07-14] MEDS: NICOTINE 14MG/24HR PATCH TRANSDERM SCH ×2 (09:20→09:22)
[2019-07-14] MEDS: ATORVASTATIN 10 MG TAB PO SCH (09:20)
[2019-07-14] MEDS: ATENOLOL 50 MG TAB PO SCH (09:20)
[2019-07-14] MEDS: BENZTROPINE MESYLATE 0.5 MG TAB PO SCH ×2 (09:21→22:07)
[2019-07-14] MEDS: PALIPERIDONE 6 MG TAB.ER.24 PO SCH (09:21)
--- NOTE | 2019-07-14 15:07 | P.PN ---
Progress Note - Text Progress Note Date: 07/14/19 Interim history: I reviewed the medical record and interviewed the patient. She was distressed and watch the interview. She cried when talking about her thoughts and feelings. She expressed overvalued church thoughts. One source of distress is her perception that other people do not value "the Lord" as highly as she does. She has a special relationship with the Lord was alert speaks to her. Mental status exam: She presented as a casually groomed moderately obese 63-year-old female who was pleasant on approach. She made eye contact and attended the interview. She had no prominent physical abnormalities. She had a distressed facial expression. She was alert and oriented to person, place and time. She showed no abnormality of psychomotor activity and speech was spontaneous with normal rate and volume. Her affect was labile and depressed. She did not express suicidal ideation, wishes homicidal ideation. She denied feeling hopeless, helpless or worthless. She did not express clear ideas reference, paranoid ideation or delusions. Her thinking was concrete and associations were not fully coherent, logical goal-directed. She did not appear to be responding to internal stimuli. Assessment: She appears more depressed than hypomanic today Plan: Continue inpatient treatment. Continue safety precautions. He denied current medications including Invega 6 mg daily. roundhouse worker to coordinate discharge and aftercare services. Encouraged continued participation in therapeutic groups and activities. Evaluate clinical status response to treatment daily basis.
[2019-07-14] MEDS: MELATONIN 3 MG TABLET PO SCH (22:07)
[2019-07-15] MEDS: LEVOTHYROXINE 50 MCG TAB PO SCH (05:16)
[2019-07-15] MEDS: LORazepam 1 MG TAB PO PRN (08:36)
[2019-07-15] MEDS: NICOTINE 14MG/24HR PATCH TRANSDERM SCH (08:36)
[2019-07-15] MEDS: ATENOLOL 50 MG TAB PO SCH (08:36)
[2019-07-15] MEDS: PALIPERIDONE 6 MG TAB.ER.24 PO SCH (08:36)
[2019-07-15] MEDS: BENZTROPINE MESYLATE 0.5 MG TAB PO SCH ×2 (08:36→19:58)
[2019-07-15] MEDS: amLODIPine 10 MG TAB PO SCH (08:36)
[2019-07-15] MEDS: ATORVASTATIN 10 MG TAB PO SCH (08:36)
[2019-07-15] MEDS: NICOTINE POLACRILEX 2 MG GUM BUCCAL PRN (09:29)
--- NOTE | 2019-07-15 09:56 | P.PN ---
Progress Note - Text Progress Note Date: 07/15/19 Interval History: Patient was seen sitting in on group this morning and was directable and agree able to speak with inspector automatic typewriter in the office. Patient appeared to be nonverbal today and simply stared at inspector automatic typewriter in the office as she sat in the chair. Patient for the most part shook her head every time inspector automatic typewriter asked her a question. Patient would not answer any questions today. She was however partially cooperative with inspector automatic typewriter checking her muscle tone for any rigidity which was not found. Patient would not cooperate with the rest of the neurological exam. She ended the interview by getting up and walking out the door. Mental Status Exam: General Appearance: Patient appears to be overweight, stated age is alert, directable, however nonverbal today. Patient appears to have improved hygiene and grooming. Behavior: Patient is seated without any agitated behavior. Nonverbal Speech: Nonverbal Mood/Affect: Unable to assess. Suicidality/Homicidality: Unable to assess Perceptions: Unable to assess Though content/process: Unable to assess Memory and concentration: Patient not cooperative, unable to examine. Judgment and insight: Limited Assessment Schizophrenia Nicotine dependence Plan: -Patient continues to meet criteria for inpatient psychiatric admission for symptom stabilization and safety. Patient is currently on a active court order. Patient signed for medications consent and was placed in chart. -Medications: Will hold paliperidone by mouth at this time. Can continue with m elatonin 6 mg nightly for sleep and Cogentin 0.5 mg twice a day for EPS prophylaxis. -Patient's acute change in her mental status and being nonverbal, would like to rule out a stroke or any acute cerebral event and ordered CBC with differential, comprehensive metabolic panel, creatinine kinase, and head CT with and without contrast. Depending on the results of these tests, will consult neurology if indicated. -When necessary Geodon and Ativan for agitation/aggression. -NRT - nicotine patch -SW on board for discharge planning. Encouraged the patient to participate in milieu.
[2019-07-15 10:48] LABS: Basophils % (A) 0 %; Eosinophils # (A) 0.1 k/uL (0-0.7); Eosinophils % (A) 1 %; HCT 41.7 % (34.0-46.0); HGB 13.6 gm/dL (11.4-16.0); Lymphocytes # (A) 1.7 k/uL (1.0-4.8); Lymphocytes % (A) 28 %; MCH 31.9 pg (25.0-35.0); MCHC 32.7 g/dL (31.0-37.0); MCV 97.7 fL (80.0-100.0); Mean Platelet Volume 7.9; Monocytes # (A) 0.4 k/uL (0-1.0); Monocytes % (A) 7 %; Neutrophils # (A) 3.9 k/uL (1.3-7.7); Neutrophils % (A) 63 %; Platelet Count 169 k/uL (150-450); RBC 4.26 m/uL (3.80-5.40); RDW 12.1 % (11.5-15.5); WBC 6.1 k/uL (3.8-10.6)
[2019-07-15 11:14] LABS: ALT 34 U/L (4-34); AST 35 U/L (14-36); African American GFR (CKD) >90 (>60 ml/min/1.73 sqM); Albumin 4.1 g/dL (3.5-5.0); Alkaline Phosphatase 69 U/L (38-126); Anion Gap 6 mmol/L; Blood Urea Nitrogen 12 mg/dL (7-17); Calcium 9.5 mg/dL (8.4-10.2); Carbon Dioxide 26 mmol/L (22-30); Chloride 106 mmol/L (98-107); Glucose 113 mg/dL (74-99); Non-African American GFR(CKD) >90 (>60 ml/min/1.73 sqM); Potassium 4.1 mmol/L (3.5-5.1); Sodium 138 mmol/L (137-145); Total Bilirubin 0.6 mg/dL (0.2-1.3); Total Protein 7.2 g/dL (6.3-8.2)
--- NOTE | 2019-07-15 13:07 | CT ---
EXAMINATION TYPE: CT brain wo/w con DATE OF EXAM: 07/15/2019 COMPARISON: NONE HISTORY: acute mental status change CT DLP: 1578.2 mGycm Automated Exposure Control for Dose Reduction was Utilized. TECHNIQUE: CT scan of the head is performed with IV contrast.,CT scan of the head is performed withou t and with with IV Contrast, patient injected with 100 mL of Isovue 300. FINDINGS: Noncontrast images show no acute intracranial hemorrhage or midline shift. The ventricles and sulci are within normal limits in size. Postcontrast images show no suspicious enhancing intrapa renchymal mass. The globes are intact and the visualized sinuses are clear. Calvarium is intact. IMPRESSION: No acute infarct, midline shift or mass effect. No abnormal intracranial enhancement. MRI could better assess subtle white matter change and could be performed if there is further clinical c oncern.
[2019-07-15] MEDS: MELATONIN 3 MG TABLET PO SCH (19:58)
[2019-07-16] MEDS: LEVOTHYROXINE 50 MCG TAB PO SCH (08:11)
[2019-07-16] MEDS: amLODIPine 10 MG TAB PO SCH (08:11)
[2019-07-16] MEDS: BENZTROPINE MESYLATE 0.5 MG TAB PO SCH ×2 (08:12→22:03)
[2019-07-16] MEDS: ATENOLOL 50 MG TAB PO SCH (08:12)
[2019-07-16] MEDS: ATORVASTATIN 10 MG TAB PO SCH (08:12)
--- NOTE | 2019-07-16 12:56 | P.PN ---
Progress Note - Text Progress Note Date: 07/16/19 Interval History: Patient was seen sitting in on group this morning and was directable and agree able to speak with principal technical writer in the office. Patient continues to be nonverbal and selectively mute with certain people on the unit. She refused to speak today to principal technical writer and shook her head and made other signs with her hands during the interview. She pointed to the ceiling several times and when asked what she was pointing to patient repeatedly shook her hand and her head and confirm that she was talking about God. She was also noticed by other staff members to have her hands up and singing and dancing in the hallways at times and making bizarre gestures. Patient for the most part shook her head every time principal technical writer asked her a question. She ended the interview by getting up and walking out the door. Mental Status Exam: General Appearance: Patient appears to be overweight, stated age is alert, directable, however nonverbal today. Patient appears to have improved hygiene and grooming. Behavior: Patient is seated without any agitated behavior. Nonverbal. Made several bizarre hand gestures and pointed to the ceiling. Speech: Nonverbal Mood/Affect: Unable to assess. Suicidality/Homicidality: Unable to assess Perceptions: Unable to assess Though content/process: Unable to assess Memory and concentration: Patient not cooperative, unable to examine. Judgment and insight: Poor Assessment Schizophrenia Nicotine dependence Plan: -Patient continues to meet criteria for inpatient psychiatric admission for symptom stabilization and safety. Patient is currently on a active court order. Patient signed for medications consent and was placed in chart. -Medications: Restarted paliperidone 3 mg twice a day by mouth for psychosis. Added Depakene 250 mg twice a day for mood stabilization. Can continue with melatonin 6 mg nightly for sleep and Cogentin 0.5 mg twice a day for EPS prophy laxis. -Patient had a computed tomography scan completed on 07/15/2019 - did not reveal any acute changes. CBC and comprehensive metabolic panel reviewed, no significant abnormalities. CK - 2.6. -When necessary Geodon and Ativan for agitation/aggression. -NRT - nicotine patch -SW on board for discharge planning. Encouraged the patient to participate in milieu.
[2019-07-16] MEDS: PALIPERIDONE 3 MG TAB.ER.24 PO SCH ×2 (13:12→22:04)
[2019-07-16] MEDS: VALPROIC ACID ORAL SOLN 250 MG/5 ML CUP PO SCH ×2 (13:12→22:04)
[2019-07-16] MEDS: MELATONIN 3 MG TABLET PO SCH (22:03)
[2019-07-17] MEDS: LEVOTHYROXINE 50 MCG TAB PO SCH (06:15)
[2019-07-17] MEDS: BENZTROPINE MESYLATE 0.5 MG TAB PO SCH ×2 (08:48→21:10)
[2019-07-17] MEDS: VALPROIC ACID ORAL SOLN 250 MG/5 ML CUP PO SCH ×3 (08:48→21:10)
[2019-07-17] MEDS: amLODIPine 10 MG TAB PO SCH (08:48)
[2019-07-17] MEDS: PALIPERIDONE 3 MG TAB.ER.24 PO SCH ×3 (08:48→21:10)
[2019-07-17] MEDS: ATORVASTATIN 10 MG TAB PO SCH (08:48)
[2019-07-17] MEDS: ATENOLOL 50 MG TAB PO SCH (08:48)
[2019-07-17 09:49] VITALS: BMI 44.8
[2019-07-17] MEDS ORDERED: HALOPERIDOL LACTATE 5 MG/ML 1 ML VIAL IM PRN (12:48)
--- NOTE | 2019-07-17 12:53 | P.PN ---
Progress Note - Text Progress Note Date: 07/17/19 Interval History: Patient was seen coming out of the bathroom in her room this afternoon and was directable and agreeable to speak with marketing writer in the office. Patient was verbal today and more cooperative during conversation. She states that "I feel great" when asked how her mood was doing. Patient continues to shake her head and nod her head during several questions however is speaking more and more polite. Patient continues to have poor insight and judgment. She refused medications yesterday and this morning and states that "I don't care from a court order him not taking that stuff". Patient was informed that if she does not take her by mouth medications and that they will give her IM Haldol. She states that she slept well last night and offers no other complaints. She claims that she has a fair appetite. At this time she denies any auditory or visual hallucinations. She denies any suicidal or homicidal ideations intent or plan. Mental Status Exam: General Appearance: Patient appears to be overweight, stated age is alert, directable, more cooperative today. Patient appears to have improved hygiene and grooming. Behavior: Patient is seated without any agitated behavior. More cooperative today. Speech: Fluent, nonpressured. Mood/Affect: Patient states her mood is "great" and affect is constricted. Suicidality/Homicidality: Denies Perceptions: Denies any auditory or visual hallucinations. Though content/process: Patient is argumentative and resistant. Logical and concrete. Memory and concentration: Alert and oriented 3, improving attention span Judgment and insight: Poor, mildly improving Assessment Schizophrenia Nicotine dependence Plan: -Patient continues to meet criteria for inpatient psychiatric admission for symptom stabilization and safety. Patient is currently on a active court order. Patient signed for medications consent and was placed in chart. -Medications: Continue with paliperidone 3 mg twice a day by mouth for psychosis. Continue with Depakene 250 mg twice a day for mood stabilization. Can continue with melatonin 6 mg nightly for sleep and Cogentin 0.5 mg twice a day for EPS prophylaxis. Added Haldol 4 mg twice a day IM when necessary if patient is refusing medications as she is court ordered. -Patient had a computed tomography scan completed on 07/15/2019 - did not reveal any acute changes. CBC and comprehensive metabolic panel reviewed, no significant abnormalities. CK - 2.6. -When necessary Geodon and Ativan for agitation/aggression. -NRT - nicotine patch -SW on board for discharge planning. Encouraged the patient to participate in milieu.
[2019-07-17] MEDS: MELATONIN 3 MG TABLET PO SCH (21:10)
[2019-07-18] MEDS: LEVOTHYROXINE 50 MCG TAB PO SCH ×2 (07:08→07:23)
[2019-07-18] MEDS: PALIPERIDONE 3 MG TAB.ER.24 PO SCH ×2 (08:49→21:04)
[2019-07-18] MEDS: amLODIPine 10 MG TAB PO SCH (08:49)
[2019-07-18] MEDS: ATORVASTATIN 10 MG TAB PO SCH (08:49)
[2019-07-18] MEDS: VALPROIC ACID ORAL SOLN 250 MG/5 ML CUP PO SCH ×2 (08:49→21:03)
[2019-07-18] MEDS: BENZTROPINE MESYLATE 0.5 MG TAB PO SCH ×2 (08:49→21:03)
[2019-07-18] MEDS: ATENOLOL 50 MG TAB PO SCH (08:49)
--- NOTE | 2019-07-18 11:39 | P.PN ---
Progress Note - Text Progress Note Date: 07/18/19 Interval History: Patient was seen participating in group today is doing activities and was dire ctable and agreeable to speak with engineering technical writer in the office. Patient was more appropriate today and more cooperative during conversation. She states that she is doing better and was rocking back and forth in her chair initially. She claims that her mood is "great". She is not hyperverbal and is not displaying any flight of ideas or distractibility. She appears to have improvement in her insight and judgment. She claims that she has been going to groups and participating as best as she can. She continues to speak about God and receiving messages from him however is not endorsing or preoccupied with witchcraft or any other delusions today. She took her medications yesterday and today. She states that she slept well last night and offers no other complaints. She claims that she has a fair appetite. At this time she denies any auditory or visual hallucinations. She denies any suicidal or homicidal ideations intent or plan. Mental Status Exam: General Appearance: Patient appears to be overweight, stated age is alert, directable, more cooperative today. Patient appears to have improved hygiene and grooming. Behavior: Patient is seated without any agitated behavior. More cooperative today. Speech: Fluent, nonpressured. Mood/Affect: Patient states her mood is "great" and affect is constricted. Suicidality/Homicidality: Denies Perceptions: Denies any auditory or visual hallucinations. Though content/process: Patient is argumentative and resistant. Logical and concrete. Spoke about God and religiously preoccupied. Memory and concentration: Alert and oriented 3, improving attention span Judgment and insight: Poor, mildly improving Assessment Schizophrenia Nicotine dependence Plan: -Patient continues to meet criteria for inpatient psychiatric admission for symptom stabilization and safety. Patient is currently on a active court order. Patient signed for medications consent and was placed in chart. -Medications: Continue with paliperidone 3 mg twice a day by mouth for psychosis. Continue with Depakene 250 mg twice a day for mood stabilization. Can continue with melatonin 6 mg nightly for sleep and Cogentin 0.5 mg twice a day for EPS prophylaxis. Continue with Haldol 4 mg twice a day IM when necessary if patient is refusing medications as she is court ordered. Patient will be receiving her monthly Invega Sustenna long-acting injection 234 mg tomorrow. -Patient had a computed tomography scan completed on 07/15/2019 - did not reveal any acute changes. CBC and comprehensive metabolic panel reviewed, no significant abnormalities. CK - 2.6. -When necessary Geodon and Ativan for agitation/aggression. -NRT - nicotine patch -SW on board for discharge planning. Encouraged the patient to participate in milieu.
[2019-07-18] MEDS: MELATONIN 3 MG TABLET PO SCH (21:04)
[2019-07-18] MEDS: LORazepam 1 MG TAB PO PRN (22:55)
[2019-07-19] MEDS: LEVOTHYROXINE 50 MCG TAB PO SCH (06:17)
[2019-07-19] MEDS: ATORVASTATIN 10 MG TAB PO SCH (08:44)
[2019-07-19] MEDS: VALPROIC ACID ORAL SOLN 250 MG/5 ML CUP PO SCH ×2 (08:44→22:12)
[2019-07-19] MEDS: PALIPERIDONE 3 MG TAB.ER.24 PO SCH ×2 (08:44→22:12)
[2019-07-19] MEDS: BENZTROPINE MESYLATE 0.5 MG TAB PO SCH ×2 (08:44→22:12)
[2019-07-19] MEDS: amLODIPine 10 MG TAB PO SCH (08:44)
[2019-07-19] MEDS: ATENOLOL 50 MG TAB PO SCH (10:05)
--- NOTE | 2019-07-19 10:17 | P.PN ---
Progress Note - Text Progress Note Date: 07/19/19 Interval History: Patient was seen participating in group today and was directable and agreeable to speak with senior mortgage underwriter in the office. Patient was more appropriate today with senior mortgage underwriter however continues to be argumentative and uncooperative about her medications. She states that she is taking her by mouth medications and wants to only take them and is refusing to take her long-acting injection. She claims that "it's giving me sciatic nerve pain". She is less religiously preoccupied today. She claims that her mood is "great today". She is not hyperverbal and is not displaying any flight of ideas or distractibility. She claims that she has been going to groups and participating as best as she can. She continues to speak about God at times and states that she cannot drink water on Monday due to her tenriism. She took her medications yesterday and today. She states that she slept well last night and offers no other complaints. She claims that she has a fair appetite. At this time she denies any auditory or visual hallucinations. She denies any suicidal or homicidal ideations intent or plan. Mental Status Exam: General Appearance: Patient appears to be overweight, stated age is alert, argumentative about her medications, more cooperative today. Patient appears to have improved hygiene and grooming. Behavior: Patient is seated without any agitated behavior. Speech: Fluent, nonpressured. Mood/Affect: Patient states her mood is "great today" and affect is constricted. Suicidality/Homicidality: Denies Perceptions: Denies any auditory or visual hallucinations. Though content/process: Patient is argumentative and resistant. Logical and concrete. Improvement in restorationist preoccupation. Memory and concentration: Alert and oriented 3, improving attention span Judgment and insight: Poor, mildly improving Assessment Schizophrenia Nicotine dependence Plan: -Patient continues to meet criteria for inpatient psychiatric admission for symptom stabilization and safety. Patient is currently on a active court order. Patient signed for medications consent and was placed in chart. -Medications: Continue with paliperidone 3 mg twice a day by mouth for psychosis. We'll switch Depakene syrup to Depakote 250 mg twice a day for mood stabilization, we'll consider increasing if needed. Can continue with melatonin 6 mg nightly for sleep and Cogentin 0.5 mg twice a day for EPS prophylaxis. Continue with Haldol 4 mg twice a day IM when necessary if patient is refusing medications as she is court ordered. Patient will be receiving her monthly Invega Sustenna long-acting injection 234 mg today. -Patient had a computed tomography scan completed on 07/15/2019 - did not reveal any acute changes. CBC and comprehensive metabolic panel reviewed, no significant abnormalities. CK - 2.6. -When necessary Geodon and Ativan for agitation/aggression. -NRT - nicotine patch -SW on board for discharge planning. Encouraged the patient to participate in milieu. dye house worker looking into placement for patient and also guardianship.
[2019-07-19] MEDS ORDERED: PALIPERIDONE IM 234 MG/1.5 ML SYG IM STA (11:14)
--- NOTE | 2019-07-19 21:32 | XR ---
EXAMINATION TYPE: XR chest 1V portable DATE OF EXAM: 07/19/2019 COMPARISON: 08/05/2015 HISTORY: Altered mental status Chest pain TECHNIQUE: Single view portable FINDINGS: There is no heart failure nor confluent pneumonic infiltrate. Costophrenic angles are clear . Bony thorax is intact. IMPRESSION: Normal chest. There is improved inspiration compared to last exam.
[2019-07-19] MEDS: MELATONIN 3 MG TABLET PO SCH (22:13)
[2019-07-19] MEDS: guaiFENesin 600 MG TABLET.ER PO SCH (22:13)
[2019-07-20] MEDS: LORazepam 1 MG TAB PO PRN ×2 (02:55→16:11)
[2019-07-20] MEDS: LEVOTHYROXINE 50 MCG TAB PO SCH (05:33)
[2019-07-20 08:08] LABS: Basophils % (A) 0 %; Eosinophils # (A) 0.1 k/uL (0-0.7); Eosinophils % (A) 2 %; HGB 13.7 gm/dL (11.4-16.0); Lymphocytes # (A) 2.1 k/uL (1.0-4.8); Lymphocytes % (A) 39 %; MCH 33.8 pg (25.0-35.0); MCHC 34.2 g/dL (31.0-37.0); MCV 98.8 fL (80.0-100.0); Mean Platelet Volume 7.7; Monocytes # (A) 0.3 k/uL (0-1.0); Monocytes % (A) 6 %; Neutrophils # (A) 2.7 k/uL (1.3-7.7); Neutrophils % (A) 51 %; Platelet Count 147 k/uL (150-450); RBC 4.04 m/uL (3.80-5.40); RDW 12.1 % (11.5-15.5); WBC 5.3 k/uL (3.8-10.6)
[2019-07-20 08:24] LABS: African American GFR (CKD) >90 (>60 ml/min/1.73 sqM); Anion Gap 7 mmol/L; Blood Urea Nitrogen 14 mg/dL (7-17); Calcium 9.1 mg/dL (8.4-10.2); Carbon Dioxide 27 mmol/L (22-30); Chloride 107 mmol/L (98-107); Glucose 104 mg/dL (74-99); Non-African American GFR(CKD) >90 (>60 ml/min/1.73 sqM); Potassium 4.3 mmol/L (3.5-5.1); Sodium 141 mmol/L (137-145)
[2019-07-20] MEDS ORDERED: PALIPERIDONE 3 MG TAB.ER.24 PO ONE (09:00)
[2019-07-20] MEDS: VALPROIC ACID ORAL SOLN 250 MG/5 ML CUP PO SCH ×2 (10:54→22:04)
[2019-07-20] MEDS: guaiFENesin 600 MG TABLET.ER PO SCH ×2 (10:54→22:04)
[2019-07-20] MEDS: amLODIPine 10 MG TAB PO SCH (10:54)
[2019-07-20] MEDS: ATENOLOL 50 MG TAB PO SCH (10:54)
[2019-07-20] MEDS: BENZTROPINE MESYLATE 0.5 MG TAB PO SCH ×2 (10:55→22:04)
[2019-07-20] MEDS: ATORVASTATIN 10 MG TAB PO SCH (10:55)
--- NOTE | 2019-07-20 11:27 | P.PN ---
Progress Note - Text Progress Note Date: 07/20/19 Interval history: Patient is seen in cross coverage today. She is seen in her room. She does seem to be sleeping and eating okay. She describes that her mood is doing well. She does describe having pain issues today and is going to lay down for a while. Mental status exam: She is alert and cooperative with the interview process. Her speech is fluent, not rapid or pressured. Her thought processes are organized. Her mood she describes is doing well. She does not verbalize any thoughts of harm to self others. She does not display any agitation. She does not verbalize any hallucinations or make any delusional type statements. Plan: Patient will be maintained on current psychotropic medication regimen. Continue to monitor her ongoing response to treatment monitor for any medication side effects.
[2019-07-20] MEDS: MELATONIN 3 MG TABLET PO SCH (22:04)
[2019-07-20] MEDS: PALIPERIDONE 3 MG TAB.ER.24 PO SCH (22:04)
[2019-07-21] MEDS: LORazepam 1 MG TAB PO PRN ×3 (03:09→17:52)
[2019-07-21] MEDS: LEVOTHYROXINE 50 MCG TAB PO SCH (05:12)
[2019-07-21] MEDS: guaiFENesin 600 MG TABLET.ER PO SCH ×2 (10:29→22:11)
[2019-07-21] MEDS: ATORVASTATIN 10 MG TAB PO SCH (10:29)
[2019-07-21] MEDS: VALPROIC ACID ORAL SOLN 250 MG/5 ML CUP PO SCH ×2 (10:29→22:10)
[2019-07-21] MEDS: BENZTROPINE MESYLATE 0.5 MG TAB PO SCH ×2 (10:29→22:11)
[2019-07-21] MEDS: ATENOLOL 50 MG TAB PO SCH (10:29)
[2019-07-21] MEDS: amLODIPine 10 MG TAB PO SCH (10:29)
--- NOTE | 2019-07-21 17:37 | P.PN ---
Progress Note - Text Progress Note Date: 07/21/19 Interval history: Patient is seen again in cross coverage today. She relays that she did sleep last night. She seems to be eating well. She does describe feeling tired today. She does not verbalize any adverse psychotropic medication side effects. Mental status exam: She is alert and cooperative with the interview. She is seen in her room. She seems to describe her mood as "fine." She denies any thoughts of harm to self or others. She does not verbalize any hallucinations and does not display any agitation. Plan: Patient will be maintained on current psychotropic medication regimen. Continue to monitor for any medication side effects and monitor her ongoing response to treatment
[2019-07-21] MEDS: PALIPERIDONE 3 MG TAB.ER.24 PO SCH (22:10)
[2019-07-21] MEDS: MELATONIN 3 MG TABLET PO SCH (22:11)
[2019-07-22] MEDS: LORazepam 1 MG TAB PO PRN ×3 (03:31→22:09)
[2019-07-22] MEDS: LEVOTHYROXINE 50 MCG TAB PO SCH (05:30)
[2019-07-22] MEDS: BENZTROPINE MESYLATE 0.5 MG TAB PO SCH ×2 (09:34→20:13)
[2019-07-22] MEDS: ATENOLOL 50 MG TAB PO SCH (09:34)
[2019-07-22] MEDS: amLODIPine 10 MG TAB PO SCH (09:34)
[2019-07-22] MEDS: ATORVASTATIN 10 MG TAB PO SCH (09:34)
[2019-07-22] MEDS: VALPROIC ACID ORAL SOLN 250 MG/5 ML CUP PO SCH ×2 (09:35→20:13)
[2019-07-22] MEDS: guaiFENesin 600 MG TABLET.ER PO SCH ×2 (09:35→20:13)
[2019-07-22] MEDS ORDERED: IBUPROFEN 600 MG TAB PO PRN (09:41)
--- NOTE | 2019-07-22 11:16 | P.PN ---
Progress Note - Text Progress Note Date: 07/22/19 Interval History: Patient was seen wandering the hallways this morning and was directable and ag reeable to speak with check writer salesperson in the office. Patient was more appropriate today with check writer salesperson. She is taking her medications and claims that she feels it is helping her. Patient's insight and judgment have been gradually improving. Patient did receive Invega Sustenna 234 mg IM monthly injection on 07/19/2019 and tolerated it well. Patient is noticed to be less religiously preoccupied today. She claims that her mood is "good" and offers no complaints. She claims that she has been going to groups and participating as best as she can. Patient claims that she is agreeable to go to an [facility] home upon discharge and also agreeable to have a guardian. She states that she slept well last night and offers no other complaints. She claims that she has a fair appetite. At this time she denies any auditory or visual hallucinations. She denies any suicidal or homicidal ideations intent or plan. Mental Status Exam: General Appearance: Patient appears to be overweight, stated age is alert, more cooperative today. Patient appears to have improved hygiene and grooming. Behavior: Patient is seated without any agitated behavior. Speech: Fluent, nonpressured. Mood/Affect: Patient states her mood is "good" and affect is constricted. Suicidality/Homicidality: Denies Perceptions: Denies any auditory or visual hallucinations. Though content/process: Patient is argumentative and resistant. Logical and concrete. Improvement in episcopalian preoccupation. Memory and concentration: Alert and oriented 3, improving attention span Judgment and insight: Limited, mildly improving Assessment Schizophrenia Nicotine dependence Plan: -Patient continues to meet criteria for inpatient psychiatric admission for symptom stabilization and safety. Patient is currently on a active court order. Patient signed for medications consent and was placed in chart. -Medications: Discontinued paliperidone. Continue with Depakote 250 mg twice a day for mood stabilization, we'll consider increasing if needed. Can continue with melatonin 6 mg nightly for sleep and Cogentin 0.5 mg twice a day for EPS prophylaxis. Continue with Haldol 4 mg twice a day IM when necessary if patient is refusing medications as she is court ordered. She received her monthly Invega Sustenna long-acting injection 234 mg on 07/19/2019 and tolerated it well. She will be due for her next monthly dose of 234 mg IM on 08/16/2019. -Patient had a computed tomography scan completed on 07/15/2019 - did not reveal any acute changes. CBC and comprehensive metabolic panel reviewed, no significant abnormalities. CK - 2.6. -When necessary Geodon and Ativan for agitation/aggression. -NRT - nicotine patch -SW on board for discharge planning. Encouraged the patient to participate in milieu. fabric worker looking into placement for patient and also guardianship. Patient will likely be discharged on Monday to [facility].
[2019-07-22] MEDS: ACETAMINOPHEN TAB 500 MG TAB PO PRN (11:18)
[2019-07-22] MEDS: MELATONIN 3 MG TABLET PO SCH (20:13)
[2019-07-23] MEDS: ACETAMINOPHEN TAB 500 MG TAB PO PRN ×3 (01:56→23:19)
[2019-07-23] MEDS: LORazepam 1 MG TAB PO PRN ×3 (05:48→23:22)
[2019-07-23] MEDS: LEVOTHYROXINE 50 MCG TAB PO SCH (05:48)
[2019-07-23] MEDS: ATENOLOL 50 MG TAB PO SCH (09:08)
[2019-07-23] MEDS: ATORVASTATIN 10 MG TAB PO SCH (09:08)
[2019-07-23] MEDS: BENZTROPINE MESYLATE 0.5 MG TAB PO SCH ×2 (09:08→20:05)
[2019-07-23] MEDS: guaiFENesin 600 MG TABLET.ER PO SCH ×2 (09:08→20:05)
[2019-07-23] MEDS: VALPROIC ACID ORAL SOLN 250 MG/5 ML CUP PO SCH (09:08)
[2019-07-23] MEDS: amLODIPine 10 MG TAB PO SCH (09:08)
--- NOTE | 2019-07-23 11:38 | P.PN ---
Progress Note - Text Progress Note Date: 07/23/19 Interval History: Patient was seen wandering the hallways this morning and was directable and ag reeable to speak with proposal writer in the office. Patient was more appropriate today with proposal writer today and also directable during the interview. Patient was complaining of her feet and hips feeling sore and was somatically preoccupied today. She did state that her overall mood has been improving and she has been going to groups and try to participate as best as she can. She is taking her medications and claims that she feels it is helping her. Patient's insight and judgment have been gradually improving. Patient is noticed to be less religiously preoccupied today. She claims that her mood is "ok" and offers no complaints. Patient continues to state that she is agreeable to go to an [facility] home in the near future and have her daughter as guardian. She states that she slept well last night and offers no other complaints. She claims that she has a fair appetite. At this time she denies any auditory or visual hallucinations. She denies any suicidal or homicidal ideations intent or plan. Mental Status Exam: General Appearance: Patient appears to be overweight, stated age is alert, cooperative today. Patient appears to have improved hygiene and grooming. Behavior: Patient is seated without any agitated behavior. Speech: Fluent, nonpressured. Mood/Affect: Patient states her mood is "ok" and affect is constricted. Suicidality/Homicidality: Denies Perceptions: Denies any auditory or visual hallucinations. Though content/process: Patient is argumentative and resistant. Logical and concrete. Less religiously preoccupation. Memory and concentration: Alert and oriented 3, improving attention span Judgment and insight: Limited, mildly improving Assessment Schizophrenia Nicotine dependence Plan: -Patient continues to meet criteria for inpatient psychiatric admission for symptom stabilization and safety. Patient is currently on a active court order. Patient signed for medications consent and was placed in chart. -Medications: Continue with Depakote 250 mg twice a day for mood stabilization. Can continue with melatonin 6 mg nightly for sleep and Cogentin 0.5 mg twice a day for EPS prophylaxis. Continue with Haldol 4 mg twice a day IM when nece ssary if patient is refusing medications as she is court ordered. She received her monthly Invega Sustenna long-acting injection 234 mg on 07/19/2019 and tolerated it well. She will be due for her next monthly dose of 234 mg IM on 08/16/2019. -Patient had a computed tomography scan completed on 07/15/2019 - did not reveal any acute changes. CBC and comprehensive metabolic panel reviewed, no signif icant abnormalities. CK - 2.6. -When necessary Geodon and Ativan for agitation/aggression. -NRT - nicotine patch - on board for discharge planning. Encouraged the patient to participate in milieu. Social work to communicate with [facility] to arrange for patient admitted to ACT team for close follow-up. connection worker looking into placement options for patient however due to financial constraints, patient's daughter will be continuing to look for placement after patient is discharged and patient will need to have her condo sold in the near future. Patient's daughter is also filing for guardianship. Likely discharge back home tomorrow
[2019-07-23] MEDS: DIVALPROEX ER 250 MG TAB.ER.24H PO SCH (20:05)
[2019-07-23] MEDS: MELATONIN 3 MG TABLET PO SCH (20:05)
[2019-07-24] MEDS: LEVOTHYROXINE 50 MCG TAB PO SCH (05:53)
[2019-07-24] MEDS: ACETAMINOPHEN TAB 500 MG TAB PO PRN ×2 (06:28→16:38)
[2019-07-24] MEDS: LORazepam 1 MG TAB PO PRN (06:31)
[2019-07-24 06:47] VITALS: RESP 16
[2019-07-24] MEDS: BENZTROPINE MESYLATE 0.5 MG TAB PO SCH ×2 (08:56→16:39)
[2019-07-24] MEDS: DIVALPROEX ER 250 MG TAB.ER.24H PO SCH ×2 (08:56→16:39)
[2019-07-24] MEDS: guaiFENesin 600 MG TABLET.ER PO SCH (08:56)
[2019-07-24] MEDS: ATENOLOL 50 MG TAB PO SCH (08:56)
[2019-07-24] MEDS: ATORVASTATIN 10 MG TAB PO SCH (08:56)
[2019-07-24] MEDS: amLODIPine 10 MG TAB PO SCH (08:56)
[2019-07-24] MEDS ORDERED: PROPRANOLOL 20 MG TAB PO STA (09:05)
[2019-07-24 09:22] VITALS: BP 133/97; PULSE 104
--- NOTE | 2019-07-24 09:27 | P.DS ---
Providers Date of admission: 07/10/19 16:39 Expected date of discharge: 07/24/19 Attending physician: Jacinto Ibanez MD Consults: 07/10/19 16:46 Consult Physician Routine Consulting Provider: Bj Lara Jr Consult Reason/Comments: H and P Do you want consulting provider notified?: Yes Primary care physician: Bj Lara - Discharge Diagnosis(es) (1) Schizophrenia Current Visit: Yes Status: Acute Priority: High (2) Nicotine dependence Current Visit: Yes Status: Acute Priority: Low Hospital Course: Admission HPI: Patient is a 63-year-old female with a chronic history of schizophrenia, is and lives alone in an apartment and has 3 daughters. Patient presented to the hospital at the direction of her time in her care physician for "bizarre symptoms". As per ER report states that patient claims that the "Lord brought her here" when asked why she came to the hospital. Patient also at that time endorsed depression and paranoia. Patient was last discharged from the mental health unit in 11/2018 and was placed on Invega Sustenna 117 mg and had been titrated up to a dose of 156 mg monthly. Patient claims that she was "taking too much of my Lamictal and felt that I was under the spell of witchcraft". She claims that she has been feeling like this for several weeks. She did endorse some paranoia as well as home. She claims that she felt certain people were "putting me on a curse". She claims that she does not feel that way at this time. She states that her last injection of Invega Sustenna was on June 17 and claims that she gets it monthly. She states that her "legs twitch" when she is on the medication and she is walking. At this time she is not endorsing paranoia and claims that her mood is "good" and denies any depression. She claims that she sleeps in "catnaps" during the day and at night. She states her appetite is fair. Patient denies any suicidal or homicidal ideations intent or plan. At this time patient denies any auditory or visual hallucinations. Patient admits to using cigarettes daily Hospital course: Upon admission to the unit patient was initially bizarre and floridly psychotic. Patient was however directable and agreeable to commence treatment as patient was currently on a active treatment order. Patient initially he was bizarre and delusional however as treatment progressed patient got along well with other patients on the unit and followed unit protocol. Patient was compliant with the medications and denied any side effects throughout hospital course. Patient was started on 250 mg twice a day for mood stabilization, melatonin 6 mg nightly for sleep, Cogentin 0.5 mg twice a day for EPS prophylaxis, paliperidone was titrated up to a dose of 3 mg twice a day for psychosis and as adjunct as patient is currently on Invega Sustenna long-acting injection 234 mg. She received a dose of Invega Sustenna 234 mg IM on 07/19/2019 and tolerated it well, will be due for her next monthly dose on 08/16/2019. added Inderal 20 mg by mouth twice a day when necessary for akathisia. Patient spoke of her stressors and engaged in therapy both group and individual. Patient was also seen by medical team for history and physical exam. patient received a computed tomography scan brain on 07/15/2019 for abrupt changes in her mental status and mutism, which did not reveal any acute changes. Patient was negative for COVID-19. Throughout the course of the hospitalization patient gradually improved with regards to mood lability, psychosis, sleep and became future oriented with improved insight and judgment. On the day of discharge patient denied any suicidal or homicidal ideations intent or plan denied any auditory or visual hallucinations. Patient endorsed wanting to live for her family and her future. The patient denied any access to guns or weapons. Patient denied any paranoia however does have chronic oriental orthodox preoccupation, which improved during hospitalization and treatment. Patient does not have a significant history of substance abuse however was counseled on abstaining from all substances including alcohol and marijuana. Patient was also counseled on the medications and need for regular compliance and was encouraged to follow-up with their outpatient appointment for mental health and also for primary care. Prior to discharge a family meeting will be arranged by aids social worker to answer any questions and ensure safety upon discharge. aids social worker also communicated with patient's daughter to file for guardianship and also patient and daughter are both agreeable that patient would be better off in a snf/AFC in the near future and daughter will be helping patient sell her condo and look for new placement afterwards. Mental status exam: General Appearance: Patient appears to be stated age is overweight, alert, pleasant, and attempts to be cooperative. Patient is in no acute distress and has fair hygiene and grooming Behavior: Patient is calmly seated without any agitated behavior. Speech: Patient's speech is fluent and nonpressured. Mood/Affect: Patient reports their mood is "good", affect is congruent and euthymic. Suicidality/Homicidality: Patient denies having any suicidal or homicidal ideation intent or plan. Perceptions: Patient denies any auditory or visual hallucinations. Though content/process: There is no evidence of any delusional thought content and thought process is linear and goal-directed. more future oriented. chronic oriental orthodox preoccupation. Memory and concentration: AOX3, grossly intact for the purposes of this session. Can spell "WORLD" backwards correctly. Judgment and insight: Improved with guarded prognosis Impression: schizophrenia Nicotine dependence Plan: -Continue with discharge today as patient has improved and stabilized psychiatrically and is not currently an imminent threat to herself and/or others. -Continue medications: continue with Depakote 250 mg twice a day for mood stabilization, melatonin 6 mg nightly for sleep, Cogentin 0.5 mg twice a day for EPS prophylaxis. added Inderal 20 mg by mouth twice a day when necessary for akathisia. She received a dose of Invega Sustenna 234 mg IM on 07/19/2019 and tolerated it well, will be due for her next monthly dose on 08/16/2019 -Patient was counseled on the need for medication compliance and appropriate follow-up at mental health and also primary care for medical issues. Patient verbalized understanding and agreed. -Social work to arrange for and conduct family meeting to ensure safety upon discharge and answer any questions/concerns. aids social worker also communicated with patient's daughter to file for guardianship and also patient and daughter are both agreeable that patient would be better off in a snf/AFC in the near future and daughter will be helping patient sell her condo and look for new placement afterwards. -Social work also to arrange for patients follow up appointments with [facility] for psychiatric care along with follow up with primary care provider. aids social worker communicated to [facility] to have patient referred to ACT team for close follow-up. -Patient counseled on abstaining from recreational drugs and marijuana and alcohol. Was informed/educated on the adverse effects on their physical and mental health. Patient verbally agreed and understood. -Patient was instructed to return to the hospital or seek immediate medical care if their psychiatric or medical symptoms do worsen or reoccur. Allergies Allergy/AdvReac Type Severity Reaction Status Date / Time nicotine Allergy Severe Rash/Hives Verified 07/15/19 09:37 ibuprofen [From Motrin] Allergy Swelling Verified 07/10/19 14:01 NSAIDS (Non-Steroidal Allergy Rash/Hives Verified 07/10/19 14:01 Anti-Inflamma Laboratory Results WBC 5.3 k/uL (3.8-10.6) 07/20/19 07:32 RBC 4.04 m/uL (3.80-5.40) 07/20/19 07:32 Hgb 13.7 gm/dL (11.4-16.0) 07/20/19 07:32 Hct 40.0 % (34.0-46.0) 07/20/19 07:32 MCV 98.8 fL (80.0-100.0) 07/20/19 07:32 MCH 33.8 pg (25.0-35.0) 07/20/19 07:32 MCHC 34.2 g/dL (31.0-37.0) 07/20/19 07:32 RDW 12.1 % (11.5-15.5) 07/20/19 07:32 Plt Count 147 k/uL (150-450) L 07/20/19 07:32 Neutrophils % 51 % 07/20/19 07:32 Lymphocytes % 39 % 07/20/19 07:32 Monocytes % 6 % 07/20/19 07:32 Eosinophils % 2 % 07/20/19 07:32 Basophils % 0 % 07/20/19 07:32 Neutrophils # 2.7 k/uL (1.3-7.7) 07/20/19 07:32 Lymphocytes # 2.1 k/uL (1.0-4.8) 07/20/19 07:32 Monocytes # 0.3 k/uL (0-1.0) 07/20/19 07:32 Eosinophils # 0.1 k/uL (0-0.7) 07/20/19 07:32 Basophils # 0.0 k/uL (0-0.2) 07/20/19 07:32 Sodium 141 mmol/L (137-145) 07/20/19 07:32 Potassium 4.3 mmol/L (3.5-5.1) 07/20/19 07:32 Chloride 107 mmol/L (98-107) 07/20/19 07:32 Carbon Dioxide 27 mmol/L (22-30) 07/20/19 07:32 Anion Gap 7 mmol/L 07/20/19 07:32 BUN 14 mg/dL (7-17) 07/20/19 07:32 Creatinine 0.63 mg/dL (0.52-1.04) 07/20/19 07:32 Est GFR (CKD-EPI)AfAm >90 (>60 ml/min/1.73 sqM) 07/20/19 07:32 Est GFR (CKD-EPI)NonAf >90 (>60 ml/min/1.73 sqM) 07/20/19 07:32 Glucose 104 mg/dL (74-99) H 07/20/19 07:[address] Glu mg/dL 105 07/10/19 12:30 Hemoglobin A1c 5.3 % (4.0-6.0) 07/10/19 12:30 Calcium 9.1 mg/dL (8.4-10.2) 07/20/19 07:32 Total Bilirubin 0.6 mg/dL (0.2-1.3) 07/15/19 10:36 AST 35 U/L (14-36) 07/15/19 10:36 ALT 34 U/L (4-34) 07/15/19 10:36 Alkaline Phosphatase 69 U/L (38-126) 07/15/19 10:36 CK-MB (CK-2) 2.6 ng/mL (0.0-2.4) H 07/15/19 10:36 Total Protein 7.2 g/dL (6.3-8.2) 07/15/19 10:36 Albumin 4.1 g/dL (3.5-5.0) 07/15/19 10:36 Triglycerides 99 mg/dL (<150) 07/10/19 12:30 Cholesterol 151 mg/dL (<200) 07/10/19 12:30 LDL Cholesterol, Calc 83 mg/dL (0-99) 07/10/19 12:30 HDL Cholesterol 48 mg/dL (40-60) 07/10/19 12:30 TSH 0.376 mIU/L (0.465-4.680) L 07/10/19 12:30 Free T4 1.73 ng/dL (0.78-2.19) 07/10/19 12:30 Serum Alcohol <10 mg/dL 07/10/19 12:30 Coronavirus (PCR) Not Detected (Not Detected) 07/19/19 19:23 Vital Signs Temp 97.9 F 07/24/19 06:15 Pulse 93 07/24/19 06:15 Resp 16 07/24/19 06:15 BP 139/92 07/24/19 06:15 Pulse Ox 95 07/23/19 15:50 Patient Condition at Discharge: Stable Plan - Discharge Summary New Discharge Prescriptions: New Benztropine Mesylate [Cogentin] 0.5 mg PO BID 30 Days tab Divalproex ER [Depakote ER] 250 mg PO BID 30 Days tab.er.24h Atorvastatin [Lipitor] 10 mg PO DAILY 30 Days tab Melatonin 6 mg PO HS 30 Days tablet guaiFENesin [Mucinex] 600 mg PO Q12HR 30 Days tablet.er amLODIPine [Norvasc] 10 mg PO DAILY 30 Days tab Levothyroxine Sodium [Synthroid] 50 mcg PO 0600 30 Days tab Atenolol [Tenormin] 50 mg PO DAILY 30 Days tab Acetaminophen Tab [Tylenol] 1,000 mg PO Q8HR PRN tab PRN Reason: Fever And/ Or Pain Paliperidone IM [Invega Sustenna] 234 mg IM DIRECTED #1 syr Propranolol [Inderal] 20 mg PO BID PRN 30 Days tab PRN Reason: Akithesia Discontinued Levothyroxine Sodium [Synthroid] 50 mcg PO DAILY amLODIPine BESYLATE [Amlodipine Besylate] 10 mg PO DAILY Atorvastatin Calcium [Lipitor] 10 mg PO DAILY Atenolol [Tenormin] 50 mg PO DAILY L.acidoph,Paracasei, B.lactis [Probiotic] 1 cap PO DAILY Paliperidone IM [Invega Sustenna] 156 mg IM Q28D Benztropine Mesylate [Cogentin] 0.5 mg PO TID PRN PRN Reason: RESTLESS LEGS Discharge Medication List Acetaminophen Tab [Tylenol] 1,000 mg PO Q8HR PRN tab 07/24/19 [Rx] Atenolol [Tenormin] 50 mg PO DAILY 30 Days tab 07/24/19 [Rx] Atorvastatin [Lipitor] 10 mg PO DAILY 30 Days tab 07/24/19 [Rx] Benztropine Mesylate [Cogentin] 0.5 mg PO BID 30 Days tab 07/24/19 [Rx] Divalproex ER [Depakote ER] 250 mg PO BID 30 Days tab.er.24h 07/24/19 [Rx] Levothyroxine Sodium [Synthroid] 50 mcg PO 0600 30 Days tab 07/24/19 [Rx] Melatonin 6 mg PO HS 30 Days tablet 07/24/19 [Rx] Paliperidone IM [Invega Sustenna] 234 mg IM DIRECTED #1 syr 07/24/19 [Rx] Propranolol [Inderal] 20 mg PO BID PRN 30 Days tab 07/24/19 [Rx] amLODIPine [Norvasc] 10 mg PO DAILY 30 Days tab 07/24/19 [Rx] guaiFENesin [Mucinex] 600 mg PO Q12HR 30 Days tablet.er 07/24/19 [Rx] Follow up Appointment(s)/Referral(s): [facility] [Outside] - 07/30/19 9:00 am (07-30-19 @ 9:00 with Gosia Madrigal by phone.) Bj Lara Jr, [Primary Care Provider] - 1-2 days Activity/Diet/Wound Care/Special Instructions: Activity and diet as tolerated. Avoid the use of street drugs and alcohol. Take all medications as prescribed. When you are in need of refills on your medications please contact your medical provider and/or outpatient psychiatrist to have this done. Please go to scheduled outpatient appointment for aftercare treatment. If symptoms return or become worse, call the crisis line at and/or go to the nearest emergency room for evaluation. Discharge Disposition: HOME SELF-CARE
[2019-07-24] MEDS ORDERED: PROPRANOLOL 20 MG TAB PO PRN (10:36)
[2019-07-24 12:56] VITALS: TEMP 98.1
== END 2019-07-24 16:45 | disposition home or self-care (01) | DRG 885 ==
LOC: EC 11:56 → 3MHU 16:39
PROVIDERS: ADMIT Psychiatry & Neurology Psychiatry; ATTEND Psychiatry & Neurology Psychiatry
DX: F20.9 Schizophrenia, unspecified (principal); R45.851 Suicidal ideations; F41.8 Other specified anxiety disorders; F94.0 Selective mutism; F17.210 Nicotine dependence, cigarettes, uncomplicated; H54.62 Unqualified visual loss, left eye, normal vision right eye; I10 Essential (primary) hypertension; Z79.890 Hormone replacement therapy; Z79.899 Other long term (current) drug therapy; Z82.49 Family history of ischemic heart disease and other diseases of the circulatory system; Z83.3 Family history of diabetes mellitus; Z91.19 Patient's noncompliance with other medical treatment and regimen; T43.96XA Underdosing of unspecified psychotropic drug, initial encounter; Z91.128 Patient's intentional underdosing of medication regimen for other reason; Z60.2 Problems related to living alone; Z88.6 Allergy status to analgesic agent; Z88.8 Allergy status to other drugs, medicaments and biological substances
CPT/HCPCS: 36415; 70470; 71045; 80048; 80053; 80061; 80320; 82075; 82553; 83036; 84439; 84443; 85025; 93005; 99285

== ENCOUNTER 2019-07-26 00:13 | Inpatient (IN) | payer MEDICAID, OTHER ==
[2019-07-26 02:26] LABS: Appearance,Urine Clear (Clear); Bacteria,Urine Moderate /hpf; Bilirubin,Urine Negative (Negative); Blood,Urine Small (Negative); Color,Urine Light Yellow; Glucose,Urine (UA) Negative (Negative); Ketones,Urine Negative (Negative); Leukocyte Esterase,Urine Negative (Negative); Mucus,Urine Rare /hpf; Nitrite,Urine Negative (Negative); PH, Urine 6.5 (5.0-8.0); Protein,Urine Negative (Negative); RBC,Urine 2 /hpf (0-5); Specific Gravity,Urine 1.004 (1.001-1.035); Squamous Epithelial Cell,Urine 1 /hpf (0-4); Urobilinogen,Urine <2.0 mg/dL (<2.0); WBC,Urine 1 /hpf (0-5)
[2019-07-26 02:36] LABS: Amphetamine Screen,Urine Not Detected (NotDetected); Barbiturate Screen,Urine Not Detected (NotDetected); Benzodiazepines Screen,Urine Detected (NotDetected); Cocaine Screen,Urine Not Detected (NotDetected); Methadone Screen, Urine Not Detected (NotDetected); Opiate Screen,Urine Not Detected (NotDetected); Oxycodone Screen, Urine Not Detected (NotDetected); Phencyclidine Screen,Urine Not Detected (NotDetected); Tricyclic Antidepressant,Urine Not Detected (NotDetected); Urn Cannabinoid Scrn Not Detected (NotDetected)
[2019-07-26] MEDS ORDERED: ZIPRASIDONE 20 MG VIAL IM PRN (02:49)
[2019-07-26] MEDS ORDERED: MAG HYDROX/AL HYDROX/SIMETH 30 ML CUP PO PRN (02:49)
[2019-07-26] MEDS ORDERED: PROPRANOLOL 20 MG TAB PO PRN (02:53)
[2019-07-26] MEDS ORDERED: PALIPERIDONE IM 234 MG/1.5 ML SYG IM SCH (03:00)
--- NOTE | 2019-07-26 03:01 | ED ---
Psych HPI - General Chief Complaint: Psychiatric Symptoms Stated Complaint: Mental health Time Seen by Provider: 07/26/19 00:35 Source: patient, police Mode of arrival: ambulatory - History of Present Illness Initial Comments: Gwendolyn is a 63-year-old female with extensive psychiatric history with recent 2 week admission to our hospital. She was discharged on July 23 with the plan for outpatient follow-up however patient reports that since being discharged home she's not been compliant with her psych medications, she reports she hasn't followed up with anybody and her daughters have given by the Lara see her. Patient returns to the ER today in a manic state - Related Data Previous Rx's Medication Instructions Recorded Acetaminophen Tab [Tylenol] 1,000 mg PO Q8HR PRN tab 07/24/19 Atenolol [Tenormin] 50 mg PO DAILY 30 Days tab 07/24/19 Atorvastatin [Lipitor] 10 mg PO DAILY 30 Days tab 07/24/19 Benztropine Mesylate [Cogentin] 0.5 mg PO BID 30 Days tab 07/24/19 Divalproex ER [Depakote ER] 250 mg PO BID 30 Days tab.er.24h 07/24/19 Levothyroxine Sodium [Synthroid] 50 mcg PO 0600 30 Days tab 07/24/19 Melatonin 6 mg PO HS 30 Days tablet 07/24/19 Paliperidone IM [Invega Sustenna] 234 mg IM DIRECTED #1 syr 07/24/19 Propranolol [Inderal] 20 mg PO BID PRN 30 Days tab 07/24/19 amLODIPine [Norvasc] 10 mg PO DAILY 30 Days tab 07/24/19 guaiFENesin [Mucinex] 600 mg PO Q12HR 30 Days tablet.er 07/24/19 Allergies Allergy/AdvReac Type Severity Reaction Status Date / Time nicotine Allergy Severe Rash/Hives Verified 07/26/19 06:22 ibuprofen [From Motrin] Allergy Swelling Verified 07/26/19 06:22 NSAIDS (Non-Steroidal Allergy Rash/Hives Verified 07/26/19 06:22 Anti-Inflamma Review of Systems ROS Statement: Those systems with pertinent positive or pertinent negative responses have been documented in the HPI. ROS Other: All systems not noted in ROS Statement are negative. Past Medical History Past Medical History: Hypertension, Memory Impairment, Thyroid Disorder Additional Past Medical History / Comment(s): Blind in the left eye from History of Any Multi-Drug Resistant Organisms: None Reported Past Surgical History: Tubal Ligation Past Anesthesia/Blood Transfusion Reactions: No Reported Reaction Past Psychological History: Anxiety, Bipolar, Depression, Schizophrenia Smoking Status: Former smoker Past Alcohol Use History: None Reported Past Drug Use History: None Reported - Past Family History Father Family Medical History: Unable to Obtain Additional Family Medical History / Comment(s): Father is alive at age 86 with history of diabetes. Mother Additional Family Medical History / Comment(s): Mother is alive at age 85 with history of hypertension, temporal arteritis, peripheral vascular disease status post carotid surgery, blindness in the left eye. Sister(s) Additional Family Medical History / Comment(s): Patient has 4 sisters with no major medical problems. Patient has 3 daughters with no major medical problems. General Exam - General Exam Comments Initial Comments: Physical Exam GENERAL: Patient is well-developed and well-nourished. Patient is nontoxic and well-hydrated and is in no distress. HENT: Normocephalic, Atraumatic. EYES: PERRL, EOMI PULMONARY: Unlabored respirations. CARDIOVASCULAR: RRR Warm and well perfused extremities ABDOMEN: Non-distended SKIN: No rashes or bruising : Deferred NEUROLOGIC: Alert and oriented Normal speech Normal gait MUSCULOSKELETAL: Moving all extremities with no apparent injury PSYCHIATRIC: Manic, poor historian Limitations: no limitations Course Vital Signs 07/26/19 07/26/19 00:19 03:26 Temperature 97.9 F 98.5 F Pulse Rate 124 H 101 H Respiratory 26 H 20 Rate Blood Pressure 142/84 135/60 O2 Sat by Pulse 97 97 Oximetry Medical Decision Making - Medical Decision Making The patient was seen and evaluated, history is obtained from patient history and physical exam consistent with a manic period. Psychiatric nurse is familiar with the patient agrees the patient has black follow-up and needs to be readmitted patient accepted the psychiatric floor - Lab Data Lab Results 07/26/19 07/26/19 Range/Units 00:43 00:43 Urine Color Light Yellow Urine Appearance Clear (Clear) Urine pH 6.5 (5.0-8.0) Ur Specific [place] 1.004 (1.001-1.035) Urine Protein Negative (Negative) Urine Glucose (UA) Negative (Negative) Urine Ketones Negative (Negative) Urine Blood Small H (Negative) Urine Nitrite Negative (Negative) Urine Bilirubin Negative (Negative) Urine Urobilinogen <2.0 (<2.0) mg/dL Ur Leukocyte Esterase Negative (Negative) Urine RBC 2 (0-5) /hpf Urine WBC 1 (0-5) /hpf Ur Squamous Epith Cells 1 (0-4) /hpf Urine Bacteria Moderate H (None) /hpf Urine Mucus Rare H (None) /hpf Urine Opiates Screen Not Detected (NotDetected) Ur Oxycodone Screen Not Detected (NotDetected) Urine Methadone Screen Not Detected (NotDetected) Ur Propoxyphene Screen Not Detected (NotDetected) Ur Barbiturates Screen Not Detected (NotDetected) U Tricyclic Antidepress Not Detected (NotDetected) Ur Phencyclidine Scrn Not Detected (NotDetected) Ur Amphetamines Screen Not Detected (NotDetected) U Methamphetamines Scrn Not Detected (NotDetected) U Benzodiazepines Scrn Detected H (NotDetected) Urine Cocaine Screen Not Detected (NotDetected) U Marijuana (THC) Screen Not Detected (NotDetected) Disposition Clinical Impression: Manic episode Disposition: TRANSFER TO PSYCH HOSP/UNIT Condition: Stable Is patient prescribed a controlled substance at d/c from ED?: No
[2019-07-26] MEDS: LORazepam 1 MG TAB PO PRN ×2 (04:05→21:55)
[2019-07-26] MEDS: LEVOTHYROXINE 50 MCG TAB PO SCH (06:40)
[2019-07-26 08:11] LABS: Basophils % (A) 0 %; Eosinophils # (A) 0.1 k/uL (0-0.7); Eosinophils % (A) 1 %; HCT 42.3 % (34.0-46.0); HGB 14.4 gm/dL (11.4-16.0); Lymphocytes # (A) 2.3 k/uL (1.0-4.8); Lymphocytes % (A) 29 %; MCH 33.2 pg (25.0-35.0); MCV 97.6 fL (80.0-100.0); Mean Platelet Volume 7.7; Monocytes # (A) 0.5 k/uL (0-1.0); Monocytes % (A) 7 %; Neutrophils # (A) 4.9 k/uL (1.3-7.7); Neutrophils % (A) 62 %; Platelet Count 141 k/uL (150-450); RBC 4.33 m/uL (3.80-5.40); RDW 11.9 % (11.5-15.5); WBC 7.9 k/uL (3.8-10.6)
[2019-07-26 08:19] LABS: ALT 32 U/L (4-34); AST 47 U/L (14-36); African American GFR (CKD) >90 (>60 ml/min/1.73 sqM); Albumin 4.1 g/dL (3.5-5.0); Alkaline Phosphatase 65 U/L (38-126); Anion Gap 9 mmol/L; Blood Urea Nitrogen 11 mg/dL (7-17); Calcium 9.5 mg/dL (8.4-10.2); Carbon Dioxide 23 mmol/L (22-30); Chloride 106 mmol/L (98-107); Glucose 110 mg/dL (74-99); Non-African American GFR(CKD) >90 (>60 ml/min/1.73 sqM); Sodium 138 mmol/L (137-145); Total Bilirubin 0.7 mg/dL (0.2-1.3); Total Protein 7.4 g/dL (6.3-8.2)
[2019-07-26 08:20] LABS: Potassium 3.9 mmol/L (3.5-5.1)
[2019-07-26 08:32] LABS: Valproic Acid (Depakene) 13.5 ug/mL
[2019-07-26] MEDS ORDERED: DIVALPROEX ER 250 MG TAB.ER.24H PO SCH (09:00)
[2019-07-26] MEDS: amLODIPine 10 MG TAB PO SCH (09:47)
[2019-07-26] MEDS: ATENOLOL 50 MG TAB PO SCH (09:47)
[2019-07-26] MEDS: ATORVASTATIN 10 MG TAB PO SCH (09:47)
[2019-07-26] MEDS: BENZTROPINE MESYLATE 0.5 MG TAB PO SCH ×2 (09:47→20:21)
[2019-07-26] MEDS: guaiFENesin 600 MG TABLET.ER PO SCH ×2 (09:48→20:21)
--- NOTE | 2019-07-26 12:45 | P.HP ---
Psychiatric H&P - . H&P Date: 07/26/19 History & Physical: IDENTIFYING DATA: Patient is a 63-year-old female with a chronic history of schizophrenia, is and lives alone in an apartment and has 3 daughters. HPI: The Patient presented to the hospital with reports of feeling paranoid and "stressed". The patient was recently discharged from the hospital. She reports that she was not taking her medications. The patient reports that she was not feeling safe at home. The patient reports that she believes that his mafia her around her and gangsters are being after her. The patient complains of poor sleep at night. As per the ER report the patient was getting increasingly manic. The patient reports that she has been feeling safer and better while she is in the hospital. The patient reports compliance with the medications since she has been hospitalized. The patient has long psychiatric history and has history of multiple psychiatric hospitalizations in the past. The patient was recently discharged from the unit where she was admitted with paranoia and manic episodes. The patient reports auditory hallucinations described as hearing God's voice telling her to persevere. The patient denies any suicidal or homicidal ideations at this time. PAST PSYCHIATRIC HISTORY: Patient states that she has a history of schizophrenia and was following up with [facility]. Patient was previously on Lamictal 50 mg daily at bedtime, Invega Sustenna 156 mg every monthly. Her last psychiatric admission was in 11/2018. Denies any suicide attempts in the past. She has a history of multiple overdoses it sounds like, no suicide attempts. She denies any current psychiatrist or counselor. She says she has been hospitalized a lot. She says that she feels much better not on medication. She says she did very well on Prozac. She did not like Depakote or lithium and Lamictal made her want to sleep. Says she has diagnosis history of schizophrenia and bipolar disorder. She does admit to some history of hallucinations, auditory hallucinations she says that are the wrong kind. PMH: Hypertension, thyroid disorder, blind in her left eye ALLERGIES: Ibuprofen, NSAIDs CHEMICAL DEPENDENCY HISTORY: Denies FAMILY PSYCHIATRIC/SUBSTANCE USE HISTORY: States that her aunt, uncle, cousin and sister all have schizophrenia. SOCIAL HISTORY: Patient was born and raised in [facility] and now currently lives in [place]. She lives in a apartment alone and has 3 daughters. She claims that she completed up to the 12th grade of school. She denies any legal history. MENTAL STATUS EXAM: General Appearance: Patient appears to be overweight, stated age is alert, directable, and attempts to cooperate. Patient appears to have poor hygiene and grooming. Behavior: Patient is seated without any agitated behavior. Attempts to cooperate. Speech: Patient's speech is fluent and nonpressured. Mood/Affect: Patient reports their mood is "okay", affect is congruent Suicidality/Homicidality: Patient denies having any homicidal ideation intent or plan. Denies any suicidal ideations intent or plan Perceptions: Patient denies any visual hallucinations and denies any auditory hallucinations Though content/process: Patient endorses delusions of witchcraft and being in a curse. Goal oriented, logical. Memory and concentration: AOX3, grossly intact for the purposes of this session. Can spell "WORLD" backwards Judgment and insight: Limited STRENGTHS/WEAKNESSES: strength is that patient is resilient. Weakness is that patient has poor judgment and has chronic mental illness INTELLECT: average Allergies Allergy/AdvReac Type Severity Reaction Status Date / Time nicotine Allergy Severe Rash/Hives Verified 07/26/19 06:22 ibuprofen [From Motrin] Allergy Swelling Verified 07/26/19 06:22 NSAIDS (Non-Steroidal Allergy Rash/Hives Verified 07/26/19 06:22 Anti-Inflamma Vital Signs Temp 97.4 F L 07/26/19 03:45 Pulse 108 H 07/26/19 09:50 Resp 20 07/26/19 09:50 BP 142/83 07/26/19 09:50 Pulse Ox 97 07/26/19 03:45 Intake & Output 07/25/19 07/26/19 07/26/19 18:59 06:59 18:59 Weight 101.62 kg Laboratory Last Values WBC 7.9 k/uL (3.8-10.6) 07/26/19 07:49 RBC 4.33 m/uL (3.80-5.40) 07/26/19 07:49 Hgb 14.4 gm/dL (11.4-16.0) 07/26/19 07:49 Hct 42.3 % (34.0-46.0) 07/26/19 07:49 MCV 97.6 fL (80.0-100.0) 07/26/19 07:49 MCH 33.2 pg (25.0-35.0) 07/26/19 07:49 MCHC 34.0 g/dL (31.0-37.0) 07/26/19 07:49 RDW 11.9 % (11.5-15.5) 07/26/19 07:49 Plt Count 141 k/uL (150-450) L 07/26/19 07:49 Neutrophils % 62 % 07/26/19 07:49 Lymphocytes % 29 % 07/26/19 07:49 Monocytes % 7 % 07/26/19 07:49 Eosinophils % 1 % 07/26/19 07:49 Basophils % 0 % 07/26/19 07:49 Neutrophils # 4.9 k/uL (1.3-7.7) 07/26/19 07:49 Lymphocytes # 2.3 k/uL (1.0-4.8) 07/26/19 07:49 Monocytes # 0.5 k/uL (0-1.0) 07/26/19 07:49 Eosinophils # 0.1 k/uL (0-0.7) 07/26/19 07:49 Basophils # 0.0 k/uL (0-0.2) 07/26/19 07:49 Sodium 138 mmol/L (137-145) 07/26/19 07:49 Potassium 3.9 mmol/L (3.5-5.1) 07/26/19 07:49 Chloride 106 mmol/L (98-107) 07/26/19 07:49 Carbon Dioxide 23 mmol/L (22-30) 07/26/19 07:49 Anion Gap 9 mmol/L 07/26/19 07:49 BUN 11 mg/dL (7-17) 07/26/19 07:49 Creatinine 0.55 mg/dL (0.52-1.04) 07/26/19 07:49 Est GFR (CKD-EPI)AfAm >90 (>60 ml/min/1.73 sqM) 07/26/19 07:49 Est GFR (CKD-EPI)NonAf >90 (>60 ml/min/1.73 sqM) 07/26/19 07:49 Glucose 110 mg/dL (74-99) H 07/26/19 07:49 Calcium 9.5 mg/dL (8.4-10.2) 07/26/19 07:49 Total Bilirubin 0.7 mg/dL (0.2-1.3) 07/26/19 07:49 AST 47 U/L (14-36) H 07/26/19 07:49 ALT 32 U/L (4-34) 07/26/19 07:49 Alkaline Phosphatase 65 U/L (38-126) 07/26/19 07:49 Total Protein 7.4 g/dL (6.3-8.2) 07/26/19 07:49 Albumin 4.1 g/dL (3.5-5.0) 07/26/19 07:49 Urine Color Light Yellow 07/26/19 00:43 Urine Appearance Clear (Clear) 07/26/19 00:43 Urine pH 6.5 (5.0-8.0) 07/26/19 00:43 Ur Specific G[place]ier 1.004 (1.001-1.035) 07/26/19 00:43 Urine Protein Negative (Negative) 07/26/19 00:43 Urine Glucose (UA) Negative (Negative) 07/26/19 00:43 Urine Ketones Negative (Negative) 07/26/19 00:43 Urine Blood Small (Negative) H 07/26/19 00:43 Urine Nitrite Negative (Negative) 07/26/19 00:43 Urine Bilirubin Negative (Negative) 07/26/19 00:43 Urine Urobilinogen <2.0 mg/dL (<2.0) 07/26/19 00:43 Ur Leukocyte Esterase Negative (Negative) 07/26/19 00:43 Urine RBC 2 /hpf (0-5) 07/26/19 00:43 Urine WBC 1 /hpf (0-5) 07/26/19 00:43 Ur Squamous Epith Cells 1 /hpf (0-4) 07/26/19 00:43 Urine Bacteria Moderate /hpf (None) H 07/26/19 00:43 Urine Mucus Rare /hpf (None) H 07/26/19 00:43 Urine Opiates Screen Not Detected (NotDetected) 07/26/19 00:43 Ur Oxycodone Screen Not Detected (NotDetected) 07/26/19 00:43 Urine Methadone Screen Not Detected (NotDetected) 07/26/19 00:43 Ur Propoxyphene Screen Not Detected (NotDetected) 07/26/19 00:43 Ur Barbiturates Screen Not Detected (NotDetected) 07/26/19 00:43 Valproic Acid 13.5 ug/mL 07/26/19 07:49 U Tricyclic Antidepress Not Detected (NotDetected) 07/26/19 00:43 Ur Phencyclidine Scrn Not Detected (NotDetected) 07/26/19 00:43 Ur Amphetamines Screen Not Detected (NotDetected) 07/26/19 00:43 U Methamphetamines Scrn Not Detected (NotDetected) 07/26/19 00:43 U Benzodiazepines Scrn Detected (NotDetected) H 07/26/19 00:43 Urine Cocaine Screen Not Detected (NotDetected) 07/26/19 00:43 U Marijuana (THC) Screen Not Detected (NotDetected) 07/26/19 00:43 07/26/19 11:53 07/26/19 12:36 07/26/19 12:42 Assessment and Plan Assessment: IMPRESSIONS: Schizophrenia Nicotine dependence Plan: PLAN: -Patient is admitted to the [facility] for stabilization of psychiatric symptoms and safety. Patient signed for medications consent and was placed in chart. -Medications : Will continue Invega Sustenna 234 mg IM every 4 weeks the patient is due for the next injection on 08/16/2019. Will start melatonin 6 mg daily at bedtime for sleep. Continue Cogentin to 0.5 mg twice a day for EPS prophylaxis. -Ativan and Geodon PRN for agitation/aggression -Patient was informed of the risks, benefits and side effects of the medication and patient verbally consented to taking the medications. Patient signed med consent form and was placed in chart. -Internal Medicine consult to perform medical evaluation and physical. -NRT -nicotine gum. -SW on board for discharge planning. Encourage patient to participate in groups to work on coping skills.
[2019-07-26] MEDS: NICOTINE POLACRILEX 2 MG GUM BUCCAL PRN ×2 (13:53→19:09)
[2019-07-26] MEDS: MAGNESIUM HYDROXIDE 2,400 MG/10 ML CUP PO PRN (17:08)
[2019-07-26] MEDS: MELATONIN 3 MG TABLET PO SCH (20:20)
[2019-07-26] MEDS: DIVALPROEX ER 500 MG TAB.ER.24H PO SCH (20:21)
[2019-07-27] MEDS: NICOTINE POLACRILEX 2 MG GUM BUCCAL PRN ×5 (01:39→20:48)
[2019-07-27] MEDS: ACETAMINOPHEN TAB 500 MG TAB PO PRN ×2 (01:39→13:12)
[2019-07-27] MEDS: LEVOTHYROXINE 50 MCG TAB PO SCH (06:22)
[2019-07-27] MEDS: ATORVASTATIN 10 MG TAB PO SCH (09:02)
[2019-07-27] MEDS: amLODIPine 10 MG TAB PO SCH (09:02)
[2019-07-27] MEDS: guaiFENesin 600 MG TABLET.ER PO SCH ×2 (09:02→20:48)
[2019-07-27] MEDS: BENZTROPINE MESYLATE 0.5 MG TAB PO SCH ×2 (09:02→20:48)
[2019-07-27] MEDS: ATENOLOL 50 MG TAB PO SCH (09:03)
[2019-07-27] MEDS: LORazepam 1 MG TAB PO PRN (16:29)
--- NOTE | 2019-07-27 17:16 | P.PN ---
Progress Note - Text Progress Note Date: 07/27/19 Clinical Problems: Schizophrenia, tobacco use disorder Interim history:. The medical record and interviewed the patient. She is a 63-year-old female readmitted to the psychiatric unit 2 days after discharge. On admission, she reported that she has not been taking her prescribed medications, not feeling safe at home, was not sleeping and expressed paranoid ideation. I found her standing facing the wall at the end of the [place] staring at the clock. She stated that she was waiting for the clock to reach 24. She believes that once the clock reaches "24" that there will be judgment. "People will get on her knees for the Lord." She has been attending therapeutic groups and activities. She'll he slept 3 hours last night. Mental status exam: She presented as a short obese elderly woman with long unkempt hair. Earlier today, her affect was bright. When she was standing facing the clock she was distressed and appeared frightened. Her speech was spontaneous, halting but normal volume. Her affect was paranoid and distressed. She did not express clear suicidal ideation, wishes or homicidal ideation. She is experiencing ideas reference, paranoid ideation and paranoid delusional beliefs. Her thinking is concrete and associations were coherent, organized and goal directed. She did not appear to responding to internal stimuli. Assessment: She has intermittent periods of marked paranoia and worsening paranoid delusional beliefs. She was intermittently restless but has been compliant with prescribed medications. Plan: Inpatient treatment. Continue safety precautions. Continue Invega 234 mg IM monthly (to be given 08/16/2019), Depakote ER 500 mg at bedtime. Begin a trial of Seroquel 50 mg at bedtime for sleep and psychosis and titrated according to clinical response and tolerance. Evaluate clinical status response to treatment daily basis. Encourage continued participation in therapeutic groups and activities.
[2019-07-27] MEDS: QUEtiapine 50 MG TAB PO SCH (20:48)
[2019-07-27] MEDS: MELATONIN 3 MG TABLET PO SCH (20:48)
[2019-07-27] MEDS: DIVALPROEX ER 500 MG TAB.ER.24H PO SCH (20:48)
[2019-07-28] MEDS: ACETAMINOPHEN TAB 500 MG TAB PO PRN ×2 (01:57→21:14)
[2019-07-28] MEDS: ATORVASTATIN 10 MG TAB PO SCH (09:04)
[2019-07-28] MEDS: amLODIPine 10 MG TAB PO SCH (09:04)
[2019-07-28] MEDS: LEVOTHYROXINE 50 MCG TAB PO SCH (09:04)
[2019-07-28] MEDS: ATENOLOL 50 MG TAB PO SCH (09:05)
[2019-07-28] MEDS: BENZTROPINE MESYLATE 0.5 MG TAB PO SCH ×2 (09:05→21:12)
[2019-07-28] MEDS: NICOTINE POLACRILEX 2 MG GUM BUCCAL PRN ×3 (09:06→18:49)
[2019-07-28] MEDS: guaiFENesin 600 MG TABLET.ER PO SCH ×2 (09:06→21:12)
--- NOTE | 2019-07-28 10:39 | P.PN ---
Progress Note - Text Progress Note Date: 07/28/19 Clinical Problems: Schizophrenia, tobacco use disorder Interim history: I reviewed the medical record and interviewed the patient. She denied concerns and offered no complaints. She is religiously preoccupied but did not expressed desire or overvalued christianity thoughts or beliefs. Mental status exam: She presented as a short obese elderly woman with long hair. She had a bright almost elated facial expression. Her speech was spontaneous, halting but normal volume. Her affect was elevated. She did not express clear suicidal ideation, wishes or homicidal ideation. She is experiencing ideas reference, paranoid ideation and paranoid delusional beliefs. Her thinking is concrete and associations were coherent, organized and goal directed. She did not appear to responding to internal stimuli. Assessment: She has intermittent periods of marked paranoia and worsening parano id delusional beliefs. She was intermittently restless but has been compliant with prescribed medications. Plan: Inpatient treatment. Continue safety precautions. Continue Invega 234 mg IM monthly (to be given 08/16/2019), Depakote ER 500 mg at bedtime. Begin a trial of Seroquel 50 mg at bedtime for sleep and psychosis and titrated according to clinical response and tolerance. Evaluate clinical status response to treatment daily basis. Encourage continued participation in therapeutic groups and activities.
[2019-07-28] MEDS: LORazepam 1 MG TAB PO PRN (19:33)
[2019-07-28] MEDS: MELATONIN 3 MG TABLET PO SCH (21:12)
[2019-07-28] MEDS: QUEtiapine 50 MG TAB PO SCH (21:12)
[2019-07-28] MEDS: DIVALPROEX ER 500 MG TAB.ER.24H PO SCH (21:12)
[2019-07-29] MEDS: ACETAMINOPHEN TAB 500 MG TAB PO PRN ×3 (03:24→18:46)
[2019-07-29] MEDS: LEVOTHYROXINE 50 MCG TAB PO SCH (06:01)
[2019-07-29] MEDS: amLODIPine 10 MG TAB PO SCH (08:34)
[2019-07-29] MEDS: LORazepam 1 MG TAB PO PRN (08:34)
[2019-07-29] MEDS: guaiFENesin 600 MG TABLET.ER PO SCH ×2 (08:34→21:04)
[2019-07-29] MEDS: ATORVASTATIN 10 MG TAB PO SCH (08:34)
[2019-07-29] MEDS: NICOTINE POLACRILEX 2 MG GUM BUCCAL PRN ×3 (08:34→18:45)
[2019-07-29] MEDS: ATENOLOL 50 MG TAB PO SCH (08:34)
[2019-07-29] MEDS: BENZTROPINE MESYLATE 0.5 MG TAB PO SCH ×2 (08:34→21:04)
--- NOTE | 2019-07-29 12:14 | P.PN ---
Progress Note - Text Progress Note Date: 07/29/19 Interval History: Patient was seen wandering the hallways and was directable and agreeable to sp eddie with television writer in the office. Patient appeared to be superficially cooperative with television writer and explained the reasons why she came to the hospital. Patient states that she was too "overwhelmed at home" it spoke about "gangs circling my neighborhood". She states that she did not take her medications when she left the hospital. She states that she understands she needs a guardian and claims that her sister can be guardian for her. She states that her mood is "fine" and claims that she has been going to groups. She denies any depressive symptoms at this time. Patient was not religiously preoccupied and did not endorse any delusions today. He states that she slept well last night. At this time patient denies any suicidal or homical ideations, intent or plan. Patient denies any auditory, visual hallucinations. Patient denies any side effects from the medications and has been compliant with meds. Mental Status Exam: General Appearance: Patient appears to be overweight, stated age is alert, directable, and attempts to cooperate. Patient appears to have poor hygiene and grooming. Behavior: Patient is seated without any agitated behavior. Attempts to cooperate. Speech: Patient's speech is fluent and nonpressured. Mood/Affect: Patient reports their mood is "ok", affect is congruent and constricted. Suicidality/Homicidality: Patient denies having any homicidal ideation intent or plan. Denies any suicidal ideations intent or plan Perceptions: Patient denies any visual hallucinations and denies any auditory hallucinations Though content/process: Goal oriented, logical. Poor reality testing and insight. Memory and concentration: AOX3, grossly intact for the purposes of this session Judgment and insight: Poor. Assessment Schizophrenia Nicotine dependence. Plan: -Patient continues to meet criteria for inpatient psychiatric admission for symptom stabilization and safety. Patient is currently on active treatment order. -Medications: Patient will be due for her next Invega Sustenna injection on 08/16/2019 of 234mg IM every monthly. Continue with Depakote 500 mg daily at bedtime for mood stabilization, Cogentin 0.5 mg twice a day for EPS prophylaxis, Seroquel 50 mg daily at bedtime for mood stabilization/insomnia, melatonin 6 mg nightly for sleep. -When necessary Ativan and Geodon for agitation/aggression. -NRT - nicotine patch -SW on board for discharge planning. Encouraged the patient to participate in milieu. Due to patient's poor insight and inability to care for herself, patient cannot live on her own and will need placement prior to discharge from the hospital. material worker to arrange for either public guardian versus patient's sister as guardian.
[2019-07-29] MEDS: DIVALPROEX ER 500 MG TAB.ER.24H PO SCH (21:04)
[2019-07-29] MEDS: QUEtiapine 50 MG TAB PO SCH (21:04)
[2019-07-29] MEDS: MELATONIN 3 MG TABLET PO SCH (21:04)
[2019-07-29] MEDS: MAGNESIUM HYDROXIDE 2,400 MG/10 ML CUP PO PRN (21:05)
[2019-07-30] MEDS: ACETAMINOPHEN TAB 500 MG TAB PO PRN ×3 (02:25→18:01)
[2019-07-30] MEDS: LORazepam 1 MG TAB PO PRN ×2 (03:58→04:01)
[2019-07-30] MEDS: LEVOTHYROXINE 50 MCG TAB PO SCH (04:04)
[2019-07-30] MEDS: NICOTINE POLACRILEX 2 MG GUM BUCCAL PRN ×4 (07:01→19:20)
[2019-07-30] MEDS: BENZTROPINE MESYLATE 0.5 MG TAB PO SCH ×2 (08:40→20:48)
[2019-07-30] MEDS: ATORVASTATIN 10 MG TAB PO SCH (08:40)
[2019-07-30] MEDS: amLODIPine 10 MG TAB PO SCH (08:40)
[2019-07-30] MEDS: guaiFENesin 600 MG TABLET.ER PO SCH ×2 (08:40→20:48)
[2019-07-30] MEDS: ATENOLOL 50 MG TAB PO SCH (08:40)
--- NOTE | 2019-07-30 10:08 | P.PN ---
Progress Note - Text Progress Note Date: 07/30/19 Interval History: Patient was seen wandering the hallways and was directable and agreeable to sp eak with underwriter solicitation director in the office. Patient appeared to be superficially cooperative with underwriter solicitation director today. She was rocking back and forth in the chair and states that "I always do this". She continues to be compliant with treatment and claims that she is attending groups and apparently enjoys them. She has been noted to be visible on the unit and speaking to other patients. She continues to speak about her sister coming up from [place] who has volunteered to be her guardian and states that she has a court hearing on . She states that her mood is "fine" and denies any anxiety at this time. She denies any depressive symptoms at this time. Patient was not religiously preoccupied and did not endorse any delusions today. He states that she slept well last night. At this time patient denies any suicidal or homical ideations, intent or plan. Patient denies any auditory, visual hallucinations. Patient denies any side effects from the medications and has been compliant with meds. Mental Status Exam: General Appearance: Patient appears to be overweight, stated age is alert, directable, and attempts to cooperate. Patient appears to have improving hygiene and grooming. Behavior: Patient is seated without any agitated behavior. Attempts to cooperate. Speech: Patient's speech is fluent and nonpressured. Mood/Affect: Patient reports their mood is "fine", affect is congruent and constricted. Suicidality/Homicidality: Patient denies having any homicidal ideation intent or plan. Denies any suicidal ideations intent or plan Perceptions: Patient denies any visual hallucinations and denies any auditory hallucinations Though content/process: Goal oriented, logical. Poor reality testing and insight. Memory and concentration: AOX3, grossly intact for the purposes of this session Judgment and insight: Poor, only improving. Assessment Schizophrenia Nicotine dependence. Plan: -Patient continues to meet criteria for inpatient psychiatric admission for symptom stabilization and safety. Patient is currently on active treatment order. -Medications: Patient will be due for her next Invega Sustenna injection on 08/16/2019 of 234mg IM every monthly. Continue with Depakote 500 mg daily at bedtime for mood stabilization, Cogentin 0.5 mg twice a day for EPS prophylaxis, Seroquel 50 mg daily at bedtime for mood stabilization/insomnia, melatonin 6 mg nightly for sleep. -When necessary Ativan and Geodon for agitation/aggression. -NRT - nicotine patch -SW on board for discharge planning. Encouraged the patient to participate in milieu. Due to patient's poor insight and inability to care for herself, patient cannot live on her own and will need placement prior to discharge from the hospital. Continuing to await for a guardian to be appointed and patient's placement.
[2019-07-30] MEDS: QUEtiapine 50 MG TAB PO SCH (20:48)
[2019-07-30] MEDS: MELATONIN 3 MG TABLET PO SCH (20:48)
[2019-07-30] MEDS: DIVALPROEX ER 500 MG TAB.ER.24H PO SCH (20:48)
[2019-07-31] MEDS: LORazepam 1 MG TAB PO PRN ×2 (01:24→12:17)
[2019-07-31] MEDS: ACETAMINOPHEN TAB 500 MG TAB PO PRN ×3 (02:11→16:19)
[2019-07-31] MEDS: NICOTINE POLACRILEX 2 MG GUM BUCCAL PRN ×3 (02:13→14:26)
[2019-07-31] MEDS: LEVOTHYROXINE 50 MCG TAB PO SCH (05:50)
[2019-07-31] MEDS: ATORVASTATIN 10 MG TAB PO SCH (09:35)
[2019-07-31] MEDS: ATENOLOL 50 MG TAB PO SCH (09:36)
[2019-07-31] MEDS: amLODIPine 10 MG TAB PO SCH (09:36)
--- NOTE | 2019-07-31 09:36 | P.PN ---
Progress Note - Text Progress Note Date: 07/31/19 Interval History: Patient was seen wandering the hallways and was directable and agreeable to kj morgan with group underwriter in the office. Patient appeared to be rocking back and forth this morning in her chair and states that she is in severe pain in her hips. She claims that the Tylenol as been helping however she has previously been on gabapentin which has helped her and was requesting to be placed on it. She claims that she is able to sleep through the night and offered no other complaints. Patient was almost in tears due to her pain. She claims that her mood has been gradually improving and denies any anxiety at this time. She is not endorsing any jewish preoccupations today or any delusions. She states that she has been going to groups and participating as best as she can. At this time patient denies any suicidal or homical ideations, intent or plan. Patient denies any auditory, visual hallucinations. Patient denies any side effects from the medications and has been compliant with meds. Mental Status Exam: General Appearance: Patient appears to be overweight, stated age is alert, directable, and attempts to cooperate. Patient appears to have improving hygiene and grooming. Rocking back and forth. Behavior: Patient is seated without any agitated behavior. Attempts to c ooperate. Speech: Patient's speech is fluent and nonpressured. Mood/Affect: Patient reports their mood is "ok", affect is congruent and constricted. Suicidality/Homicidality: Patient denies having any homicidal ideation intent or plan. Denies any suicidal ideations intent or plan Perceptions: Patient denies any visual hallucinations and denies any auditory hallucinations Though content/process: Goal oriented, logical. Poor reality testing Memory and concentration: AOX3, grossly intact for the purposes of this session Judgment and insight: Improving moderately. Assessment Schizophrenia Nicotine dependence. Plan: -Patient continues to meet criteria for inpatient psychiatric admission for symptom stabilization and safety. Patient is currently on active treatment order. -Medications: Patient will be due for her next Invega Sustenna injection on 08/16/2019 of 234mg IM every monthly. Continue with Depakote 500 mg daily at bedtime for mood stabilization, Cogentin 0.5 mg twice a day for EPS prophylaxis, Seroquel 50 mg daily at bedtime for mood stabilization/insomnia, melatonin 6 mg nightly for sleep. Added gabapentin 300 mg 3 times a day for neuropathic pain. -When necessary Ativan and Geodon for agitation/aggression. -NRT - nicotine patch -SW on board for discharge planning. Encouraged the patient to participate in milieu. Due to patient's poor insight and inability to care for herself, patient cannot live on her own and will need placement prior to discharge from the hospital. Continuing to await for a guardian to be appointed and patient's placement.
[2019-07-31] MEDS: guaiFENesin 600 MG TABLET.ER PO SCH ×2 (09:37→19:49)
[2019-07-31] MEDS: BENZTROPINE MESYLATE 0.5 MG TAB PO SCH ×2 (09:37→19:49)
[2019-07-31] MEDS: GABAPENTIN 300 MG CAP PO SCH ×3 (09:39→19:52)
[2019-07-31] MEDS: MELATONIN 3 MG TABLET PO SCH (19:49)
[2019-07-31] MEDS: DIVALPROEX ER 500 MG TAB.ER.24H PO SCH (19:49)
[2019-07-31] MEDS: QUEtiapine 50 MG TAB PO SCH (19:49)
[2019-08-01] MEDS ORDERED: ACETAMINOPHEN TAB 500 MG TAB ONE (04:00)
[2019-08-01] MEDS: LEVOTHYROXINE 50 MCG TAB PO SCH (05:41)
[2019-08-01] MEDS: ACETAMINOPHEN TAB 500 MG TAB PO PRN ×2 (06:28→13:47)
--- NOTE | 2019-08-01 07:57 | P.PN ---
Progress Note - Text Progress Note Date: 08/01/19 Interval History: Patient was seen sitting in the TV lounge as morning and was directable and ag reeable to speak with advertising writer in the office. Patient appeared to be rocking back and forth this morning once again in her chair and continues to state that she has pain in her hips however did state that the Neurontin is helping her. Patient did request to have an increase in her Neurontin. She claims that she is feeling sad today because of her mother who states that she lives alone and has dementia. Patient was very thankful today for her care and thanked advertising writer several times. She states that she is getting along with others on the unit and trying to stay active and go to groups. She claims that her mood has been gradually improving and denies any anxiety at this time. She is not endorsing any spiritism preoccupations today or any delusions. She states that she was able to sleep well last night. At this time patient denies any suicidal or homical ideations, intent or plan. Patient denies any auditory, visual hallucinations. Patient denies any side effects from the medications and has been compliant with meds. Mental Status Exam: General Appearance: Patient appears to be overweight, stated age is alert, directable, and attempts to cooperate. Patient appears to have improving hygiene and grooming. Rocking back and forth. Behavior: Patient is seated without any agitated behavior. Attempts to cooperate. Speech: Patient's speech is fluent and nonpressured. Mood/Affect: Patient reports their mood is "good", affect is congruent and tearful at times. Suicidality/Homicidality: Patient denies having any homicidal ideation intent or plan. Denies any suicidal ideations intent or plan Perceptions: Patient denies any visual hallucinations and denies any auditory hallucinations Though content/process: Goal oriented, logical. Poor reality testing Memory and concentration: AOX3, grossly intact for the purposes of this session Judgment and insight: Improving mildly Assessment Schizophrenia Nicotine dependence. Plan: -Patient continues to meet criteria for inpatient psychiatric admission for symptom stabilization and safety. Patient is currently on active treatment order. -Medications: Patient will be due for her next Invega Sustenna injection on 08/16/2019 of 234mg IM every monthly. Switched Depakote 250 mg BID for mood stabilization, Cogentin 0.5 mg twice a day for EPS prophylaxis, Seroquel 50 mg daily at bedtime for mood stabilization/insomnia, melatonin 6 mg nightly for sleep. Increased gabapentin 400 mg 3 times a day for neuropathic pain. -When necessary Ativan and Geodon for agitation/aggression. -NRT - nicotine patch -SW on board for discharge planning. Encouraged the patient to participate in milieu. Due to patient's poor insight and inability to care for herself, patient cannot live on her own and will need placement prior to discharge from the hospital. Continuing to await for a guardian to be appointed and patient's placement.
[2019-08-01] MEDS: amLODIPine 10 MG TAB PO SCH (09:20)
[2019-08-01] MEDS: ATENOLOL 50 MG TAB PO SCH (09:20)
[2019-08-01] MEDS: NICOTINE POLACRILEX 2 MG GUM BUCCAL PRN (09:21)
[2019-08-01] MEDS: ATORVASTATIN 10 MG TAB PO SCH (09:21)
[2019-08-01] MEDS: guaiFENesin 600 MG TABLET.ER PO SCH ×2 (09:21→20:00)
[2019-08-01] MEDS: BENZTROPINE MESYLATE 0.5 MG TAB PO SCH ×2 (09:21→20:00)
[2019-08-01] MEDS: DIVALPROEX ER 250 MG TAB.ER.24H PO SCH (09:21)
[2019-08-01] MEDS: GABAPENTIN 400 MG CAP PO SCH ×3 (09:21→20:00)
[2019-08-01] MEDS: LORazepam 1 MG TAB PO PRN ×2 (11:57→20:01)
[2019-08-01] MEDS: DIVALPROEX 500 MG TABLET.DR PO SCH (20:00)
[2019-08-01] MEDS: MELATONIN 3 MG TABLET PO SCH (20:00)
[2019-08-01] MEDS: QUEtiapine 50 MG TAB PO SCH (20:01)
[2019-08-02] MEDS: ACETAMINOPHEN TAB 500 MG TAB PO PRN ×3 (04:46→20:18)
[2019-08-02] MEDS: LEVOTHYROXINE 50 MCG TAB PO SCH (04:47)
[2019-08-02] MEDS: LORazepam 1 MG TAB PO PRN ×3 (04:48→20:19)
[2019-08-02] MEDS: BENZTROPINE MESYLATE 0.5 MG TAB PO SCH ×2 (09:10→20:20)
[2019-08-02] MEDS: guaiFENesin 600 MG TABLET.ER PO SCH ×2 (09:10→20:18)
[2019-08-02] MEDS: amLODIPine 10 MG TAB PO SCH (09:10)
[2019-08-02] MEDS: ATENOLOL 50 MG TAB PO SCH (09:10)
[2019-08-02] MEDS: DIVALPROEX ER 250 MG TAB.ER.24H PO SCH (09:10)
[2019-08-02] MEDS: ATORVASTATIN 10 MG TAB PO SCH (09:10)
[2019-08-02] MEDS: GABAPENTIN 400 MG CAP PO SCH ×3 (09:10→21:22)
--- NOTE | 2019-08-02 11:36 | P.PN ---
Progress Note - Text Progress Note Date: 08/02/19 Interval History: Patient was seen sitting in on group this morning and was directable and agree able to speak with typewriter ribbon winder in the office. Patient appeared to be calmer today and have a brighter affect and was appropriate and polite with typewriter ribbon winder. She was very thankful for her treatment, thinking typewriter ribbon winder several times. She states that she is feeling better today. She also claims that the increase in the Neurontin has been helping her pain. She claims that she is trying to go to groups and pa rticipate as best as she can. She claims that her mood has been gradually improving and denies any anxiety at this time. Patient was agreeable to go back to her home after discharge and also agreeable to have the ACT follow her daily. She is not endorsing any congregation preoccupations today or any delusions. She states that she was able to sleep well last night. At this time patient denies any suicidal or homical ideations, intent or plan. Patient denies any auditory, visual hallucinations. Patient denies any side effects from the medications and has been compliant with meds. Mental Status Exam: General Appearance: Patient appears to be overweight, stated age is alert, polite, and attempts to cooperate. Patient appears to have improving hygiene and grooming. Behavior: Patient is seated without any agitated behavior. Attempts to cooperate. Speech: Patient's speech is fluent and nonpressured. Mood/Affect: Patient reports their mood is "better", affect is congruent Suicidality/Homicidality: Patient denies having any homicidal ideation intent or plan. Denies any suicidal ideations intent or plan Perceptions: Patient denies any visual hallucinations and denies any auditory hallucinations Though content/process: Goal oriented, logical. [place]. Memory and concentration: AOX3, grossly intact for the purposes of this session Judgment and insight: Improving mildly Assessment Schizophrenia Nicotine dependence. Plan: -Patient continues to meet criteria for inpatient psychiatric admission for symptom stabilization and safety. Patient is currently on active treatment order. -Medications: Patient will be due for her next Invega Sustenna injection on 08/16/2019 of 234mg IM every monthly. Increased Depakote 500 mg BID for mood stabilization, Cogentin 0.5 mg twice a day for EPS prophylaxis, Seroquel 50 mg daily at bedtime for mood stabilization/insomnia, melatonin 6 mg nightly for sleep. Continue with gabapentin 400 mg 3 times a day for neuropathic pain. -When necessary Ativan and Geodon for agitation/aggression. -NRT - nicotine patch -SW on board for discharge planning. Encouraged the patient to participate in milieu. Due to patient's poor insight and inability to care for herself. After guardianship hearing on 08/01/2019, patient now has a public guardian and her sister as guardians. Patient will likely be discharged Monday back to her home with daily ACT team visits until [facility] can find her an AFC for permanent placement.
[2019-08-02 14:06] VITALS: BMI 40.4
[2019-08-02] MEDS: NICOTINE POLACRILEX 2 MG GUM BUCCAL PRN (14:58)
[2019-08-02] MEDS: DIVALPROEX 500 MG TABLET.DR PO SCH (20:20)
[2019-08-02] MEDS: MELATONIN 3 MG TABLET PO SCH (20:20)
[2019-08-02] MEDS: QUEtiapine 50 MG TAB PO SCH (20:20)
[2019-08-03] MEDS: ACETAMINOPHEN TAB 500 MG TAB PO PRN ×3 (04:28→23:26)
[2019-08-03] MEDS: LEVOTHYROXINE 50 MCG TAB PO SCH (06:21)
[2019-08-03] MEDS: guaiFENesin 600 MG TABLET.ER PO SCH ×2 (08:42→21:00)
[2019-08-03] MEDS: amLODIPine 10 MG TAB PO SCH (08:42)
[2019-08-03] MEDS: BENZTROPINE MESYLATE 0.5 MG TAB PO SCH ×2 (08:42→21:00)
[2019-08-03] MEDS: GABAPENTIN 400 MG CAP PO SCH ×3 (08:42→21:00)
[2019-08-03] MEDS: ATENOLOL 50 MG TAB PO SCH (08:42)
[2019-08-03] MEDS: ATORVASTATIN 10 MG TAB PO SCH (08:42)
[2019-08-03] MEDS: DIVALPROEX ER 500 MG TAB.ER.24H PO SCH (08:44)
--- NOTE | 2019-08-03 11:55 | P.PN ---
Progress Note - Text Progress Note Date: 08/03/19 Interval History: Patient was seen after taking her afternoon medications at the nurse's window and was directable and agreeable to speak to designer writer. Patient continues to be appropriate and polite and gave designer writer several different comments today. She states that she is continuing to be in chronic pain however states that the gabapentin is helping her. She asked about not being on the long-acting injection any longer as she believes it is causing her pain in her hip however patient was agreeable to take it in her arm next time. She is not endorsing any jain preoccupations today or any delusions. She states that she was able to sleep well last night. At this time patient denies any suicidal or homical ideations, intent or plan. Patient denies any auditory, visual hallucinations. Patient denies any side effects from the medications and has been compliant with meds. Mental Status Exam: General Appearance: Patient appears to be overweight, stated age is alert, polite, and attempts to cooperate. Patient appears to have improving hygiene and grooming. Behavior: Patient is seated without any agitated behavior. Attempts to cooperate. Speech: Patient's speech is fluent and nonpressured. Mood/Affect: Patient reports their mood is "good", affect is congruent Suicidality/Homicidality: Patient denies having any homicidal ideation intent or plan. Denies any suicidal ideations intent or plan Perceptions: Patient denies any visual hallucinations and denies any auditory hallucinations Though content/process: Goal oriented, logical. [place]. Memory and concentration: AOX3, grossly intact for the purposes of this session Judgment and insight: Improving mildly Assessment Schizophrenia Nicotine dependence. Plan: -Patient continues to meet criteria for inpatient psychiatric admission for symptom stabilization and safety. Patient is currently on active treatment order. -Medications: Patient will be due for her next Invega Sustenna injection on 08/16/2019 of 234mg IM every monthly. Continue with Depakote 500 mg BID for mood stabilization, Cogentin 0.5 mg twice a day for EPS prophylaxis, Seroquel 50 mg daily at bedtime for mood stabilization/insomnia, melatonin 6 mg nightly for sleep. Continue with gabapentin 400 mg 3 times a day for neuropathic pain. -When necessary Ativan and Geodon for agitation/aggression. -NRT - nicotine patch -SW on board for discharge planning. Encouraged the patient to participate in milieu. Patient has poor insight and inability to care for herself. After guardianship hearing on 08/01/2019, patient now has a public guardian and her sister as guardians. Patient will likely be discharged Monday back to her home with daily ACT team visits until gaur[facility] can find her an AFC for permanent placement.
[2019-08-03] MEDS: LORazepam 1 MG TAB PO PRN ×2 (14:53→23:31)
[2019-08-03] MEDS: QUEtiapine 50 MG TAB PO SCH (21:00)
[2019-08-03] MEDS: MELATONIN 3 MG TABLET PO SCH (21:00)
[2019-08-03] MEDS: DIVALPROEX 500 MG TABLET.DR PO SCH (21:00)
[2019-08-04] MEDS: LEVOTHYROXINE 50 MCG TAB PO SCH (06:24)
[2019-08-04] MEDS: ACETAMINOPHEN TAB 500 MG TAB PO PRN ×2 (06:24→17:07)
[2019-08-04] MEDS: BENZTROPINE MESYLATE 0.5 MG TAB PO SCH ×2 (09:04→21:29)
[2019-08-04] MEDS: amLODIPine 10 MG TAB PO SCH (09:04)
[2019-08-04] MEDS: DIVALPROEX ER 500 MG TAB.ER.24H PO SCH (09:04)
[2019-08-04] MEDS: GABAPENTIN 400 MG CAP PO SCH (09:04)
[2019-08-04] MEDS: ATENOLOL 50 MG TAB PO SCH (09:04)
[2019-08-04] MEDS: ATORVASTATIN 10 MG TAB PO SCH (09:04)
[2019-08-04] MEDS: guaiFENesin 600 MG TABLET.ER PO SCH ×2 (09:04→21:29)
--- NOTE | 2019-08-04 10:21 | P.PN ---
Progress Note - Text Progress Note Date: 08/04/19 Interval History: Patient was seen taking part in group this morning and was directable and agre eable to speak to health science writer. Patient continues to be appropriate and polite however did appear to be in moderate distress today secondary to her pain. She claims that the gabapentin is helping however requested to have it increased once again. She offered no other complaints. She states that she is taking her medications every day as prescribed. She claims that she is looking forward to be discharged tomorrow. She states that she is going to groups and turn to participate as best as she can. He claims her mood as been gradually improving. She is not endorsing any scientologist preoccupations today or any delusions. She states that she was able to sleep well last night. At this time patient denies any suicidal or homical ideations, intent or plan. Patient denies any auditory, visual hallucinations. Patient denies any side effects from the medications and has been compliant with meds. Mental Status Exam: General Appearance: Patient appears to be overweight, stated age is alert, frankie ite, and attempts to cooperate. Patient appears to have improving hygiene and grooming. Behavior: Patient is seated without any agitated behavior. Attempts to cooperate. Speech: Patient's speech is fluent and nonpressured. Mood/Affect: Patient reports their mood is "ok", affect is congruent Suicidality/Homicidality: Patient denies having any homicidal ideation intent or plan. Denies any suicidal ideations intent or plan Perceptions: Patient denies any visual hallucinations and denies any auditory hallucinations Though content/process: Goal oriented, logical. [place]. Memory and concentration: AOX3, grossly intact for the purposes of this session Judgment and insight: Improving mildly Assessment Schizophrenia Nicotine dependence. Plan: -Patient continues to meet criteria for inpatient psychiatric admission for symptom stabilization and safety. Patient is currently on active treatment order. -Medications: Patient will be due for her next Invega Sustenna injection on 08/16/2019 of 234mg IM every monthly. Continue with Depakote 500 mg BID for mood stabilization, Cogentin 0.5 mg twice a day for EPS prophylaxis, Seroquel 50 mg daily at bedtime for mood stabilization/insomnia, melatonin 6 mg nightly for sleep. Increased gabapentin 600 mg 3 times a day for neuropathic pain. -When necessary Ativan and Geodon for agitation/aggression. -NRT - nicotine patch -SW on board for discharge planning. Encouraged the patient to participate in milieu. Patient has poor insight and inability to care for herself. After guardianship hearing on 08/01/2019, patient now has a public guardian and her sister as guardians. Patient will likely be discharged Monday back to her home with daily ACT team visits until [facility]aur[facility] can find her an AFC for permanent placement.
[2019-08-04] MEDS: LORazepam 1 MG TAB PO PRN ×2 (11:35→21:31)
[2019-08-04] MEDS: GABAPENTIN 300 MG CAP PO SCH ×2 (17:07→21:29)
[2019-08-04] MEDS: MELATONIN 3 MG TABLET PO SCH (21:29)
[2019-08-04] MEDS: DIVALPROEX 500 MG TABLET.DR PO SCH (21:29)
[2019-08-04] MEDS: QUEtiapine 50 MG TAB PO SCH (21:29)
[2019-08-05] MEDS: ACETAMINOPHEN TAB 500 MG TAB PO PRN (03:18)
[2019-08-05] MEDS: LEVOTHYROXINE 50 MCG TAB PO SCH (03:19)
[2019-08-05] MEDS: LORazepam 1 MG TAB PO PRN (03:44)
[2019-08-05 03:48] VITALS: BP 113/62; PULSE 80; RESP 18
[2019-08-05] MEDS: ATENOLOL 50 MG TAB PO SCH (08:49)
[2019-08-05] MEDS: guaiFENesin 600 MG TABLET.ER PO SCH (08:51)
[2019-08-05] MEDS: ATORVASTATIN 10 MG TAB PO SCH (08:52)
[2019-08-05] MEDS: amLODIPine 10 MG TAB PO SCH (08:52)
[2019-08-05] MEDS: BENZTROPINE MESYLATE 0.5 MG TAB PO SCH (08:52)
[2019-08-05] MEDS: GABAPENTIN 300 MG CAP PO SCH ×2 (08:52→10:39)
[2019-08-05] MEDS: DIVALPROEX ER 500 MG TAB.ER.24H PO SCH (08:52)
--- NOTE | 2019-08-05 09:58 | P.DS ---
Providers Date of admission: 07/26/19 02:45 Expected date of discharge: 08/05/19 Attending physician: Jacinto Ibanez MD Consults: 07/26/19 02:49 Consult Physician Routine Consulting Provider: Bj Lara Jr Consult Reason/Comments: For H & P for Medical Follow Up Do you want consulting provider notified?: Yes Primary care physician: Bj Lara - Discharge Diagnosis(es) (1) Schizophrenia Current Visit: Yes Status: Acute Priority: High (2) Nicotine dependence Current Visit: Yes Status: Acute Priority: Low Hospital Course: Admission HPI: Patient is a 63-year-old female with a chronic history of schizophrenia, is and lives alone in an apartment and has 3 daughters. The Patient presented to the hospital with reports of feeling paranoid and "st ressed". The patient was recently discharged from the hospital. She reports that she was not taking her medications. The patient reports that she was not feeling safe at home. The patient reports that she believes that his mafia her around her and gangsters are being after her. The patient complains of poor sleep at night. As per the ER report the patient was getting increasingly manic. The patient reports that she has been feeling safer and better while she is in the hospital. The patient reports compliance with the medications since she has been hospitalized. The patient has long psychiatric history and has history of multiple psychiatric hospitalizations in the past. The patient was recently discharged from the unit where she was admitted with paranoia and manic episodes. The patient reports auditory hallucinations described as hearing God's voice telling her to persevere. The patient denies any suicidal or homicidal ideations at this time. Patient states that she has a history of schizophrenia and was following up with [facility]. Patient was previously on Lamictal 50 mg daily at bedtime, Invega Sustenna 156 mg every monthly. Her last psychiatric admission was in 11/2018. Denies any suicide attempts in the past. She has a history of multiple overdoses it sounds like, no suicide attempts. She denies any current psychiatrist or counselor. She says she has been hospit alized a lot. She says that she feels much better not on medication. She says she did very well on Prozac. She did not like Depakote or lithium and Lamictal made her want to sleep. Says she has diagnosis history of schizophrenia and bipolar disorder. She does admit to some history of hallucinations, auditory hallucinations she says that are the wrong kind. Hospital course: Upon admission to the unit patient was initially bizarre and psychotic. Patient was however directable and agreeable to commence treatment. Patient got along well with other patients on the unit and followed unit protocol. Patient was compliant with the medications and denied any side effects throughout hospital course. Patient was started on Depakote 500 mg twice a day for mood stabilization, Cogentin 0.5 mg twice a day for EPS prophylaxis, Seroquel was increased to 100 mg nightly for mood stabilization/insomnia, melatonin 6 mg nightly for sleep and gabapentin was started and increased to a dose of 600 mg 3 times a day for neuropathic pain. Patient spoke of her stressors and engaged in therapy both group and individual. Patient was also seen by medical team for history and physical exam. Throughout the course of the hospitalization patient gradually improved with regards to mood, anxiety, psychosis, sleep and became future oriented with improved insight and judgment. On the day of discharge patient denied any suicidal or homicidal ideations intent or plan denied any auditory or visual hallucinations. Patient endorsed wanting to live for her family and her future. The patient denied any access to guns or weapons. Patient denied any paranoia and did not endorse any delusions. Patient does not have a significant history of substance abuse however was counseled on abstaining from all substances including alcohol and marijuana. Patient was also counseled on the medications and need for regular compliance and was encouraged to follow-up with their outpatient appointment for mental health and also for primary care. Prior to discharge a family meeting will be arranged by child protective services social worker to answer any questions and ensure safety upon discharge. Due to patient not being able to care for herself at home on her own, [facility] will arrange with ACT team to go to patient's house daily to help her with her medications until patient's guardians find patient a senior living/AFC [facility]. Patient had a guardianship hearing on 08/01/2019 and now patient has a public guardian and her sister as a coguardian. Mental status exam: General Appearance: Patient appears to be stated age is overweight, alert, pleasant, and cooperative. Patient is in no acute distress and has fair hygiene and grooming Behavior: Patient is calmly seated without any agitated behavior. Cooperative and polite. Speech: Patient's speech is fluent and nonpressured. Mood/Affect: Patient reports their mood is "much better", affect is congruent and euthymic. Suicidality/Homicidality: Patient denies having any suicidal or homicidal ideation intent or plan. Perceptions: Patient denies any auditory or visual hallucinations. Though content/process: There is no evidence of any delusional thought content and thought process is linear and goal-directed. more future oriented Memory and concentration: AOX3, grossly intact for the purposes of this session. Can spell "WORLD" backwards correctly. Judgment and insight: Improved with guarded prognosis Impression: Schizophrenia Nicotine dependence Plan: -Continue with discharge today as patient has improved and stabilized psychiatrically and is not currently an imminent threat to herself and/or others. -Continue medications: Patient will be due for her Invega Sustenna injection 234 mg IM on 08/16/2019 and monthly thereafter. Continue with Depakote 500 mg twice a day for mood stabilization, Cogentin 0.5 mg twice a day for EPS prophylaxis, Seroquel 100 mg nightly for mood stabilization/insomnia, melatonin 6 mg nightly for sleep. Continue with gabapentin 600 mg 3 times a day for neuropathic pain. -Patient is currently on 2 antipsychotic medications, Invega Sustenna is a long- acting base medication for her and Seroquel was added to control patient's excessive psychotic symptoms and help with mood stabilization and insomnia and can be reevaluated in the future for its need by her outpatient psychiatrist. -Patient was counseled on the need for medication compliance and appropriate follow-up at mental health and also primary care for medical issues. Patient verbalized understanding and agreed. -Social work to arrange for and conduct family meeting to ensure safety upon discharge and answer any questions/concerns. Social work also to arrange for patients follow up appointments with [facility] for psychiatric care along with follow up with primary care provider. -Due to patient not being able to care for herself at home on her own, [facility] will arrange with ACT team to go to patient's house daily to help her with her medications until patient's guardians find patient a senior living/AFC for patient to move into. -Patient counseled on abstaining from recreational drugs and marijuana and alcohol. Was informed/educated on the adverse effects on their physical and mental health. Patient verbally agreed and understood. -Patient was instructed to return to the hospital or seek immediate medical care if their psychiatric or medical symptoms do worsen or reoccur. Allergies Allergy/AdvReac Type Severity Reaction Status Date / Time nicotine Allergy Severe Rash/Hives Verified 07/26/19 06:22 ibuprofen [From Motrin] Allergy Swelling Verified 07/26/19 06:22 NSAIDS (Non-Steroidal Allergy Rash/Hives Verified 07/26/19 06:22 Anti-Inflamma Laboratory Results WBC 7.9 k/uL (3.8-10.6) 07/26/19 07:49 RBC 4.33 m/uL (3.80-5.40) 07/26/19 07:49 Hgb 14.4 gm/dL (11.4-16.0) 07/26/19 07:49 Hct 42.3 % (34.0-46.0) 07/26/19 07:49 MCV 97.6 fL (80.0-100.0) 07/26/19 07:49 MCH 33.2 pg (25.0-35.0) 07/26/19 07:49 MCHC 34.0 g/dL (31.0-37.0) 07/26/19 07:49 RDW 11.9 % (11.5-15.5) 07/26/19 07:49 Plt Count 141 k/uL (150-450) L 07/26/19 07:49 Neutrophils % 62 % 07/26/19 07:49 Lymphocytes % 29 % 07/26/19 07:49 Monocytes % 7 % 07/26/19 07:49 Eosinophils % 1 % 07/26/19 07:49 Basophils % 0 % 07/26/19 07:49 Neutrophils # 4.9 k/uL (1.3-7.7) 07/26/19 07:49 Lymphocytes # 2.3 k/uL (1.0-4.8) 07/26/19 07:49 Monocytes # 0.5 k/uL (0-1.0) 07/26/19 07:49 Eosinophils # 0.1 k/uL (0-0.7) 07/26/19 07:49 Basophils # 0.0 k/uL (0-0.2) 07/26/19 07:49 Sodium 138 mmol/L (137-145) 07/26/19 07:49 Potassium 3.9 mmol/L (3.5-5.1) 07/26/19 07:49 Chloride 106 mmol/L (98-107) 07/26/19 07:49 Carbon Dioxide 23 mmol/L (22-30) 07/26/19 07:49 Anion Gap 9 mmol/L 07/26/19 07:49 BUN 11 mg/dL (7-17) 07/26/19 07:49 Creatinine 0.55 mg/dL (0.52-1.04) 07/26/19 07:49 Est GFR (CKD-EPI)AfAm >90 (>60 ml/min/1.73 sqM) 07/26/19 07:49 Est GFR (CKD-EPI)NonAf >90 (>60 ml/min/1.73 sqM) 07/26/19 07:49 Glucose 110 mg/dL (74-99) H 07/26/19 07:49 Calcium 9.5 mg/dL (8.4-10.2) 07/26/19 07:49 Total Bilirubin 0.7 mg/dL (0.2-1.3) 07/26/19 07:49 AST 47 U/L (14-36) H 07/26/19 07:49 ALT 32 U/L (4-34) 07/26/19 07:49 Alkaline Phosphatase 65 U/L (38-126) 07/26/19 07:49 Total Protein 7.4 g/dL (6.3-8.2) 07/26/19 07:49 Albumin 4.1 g/dL (3.5-5.0) 07/26/19 07:49 Urine Color Light Yellow 07/26/19 00:43 Urine Appearance Clear (Clear) 07/26/19 00:43 Urine pH 6.5 (5.0-8.0) 07/26/19 00:43 Ur Specific [place] 1.004 (1.001-1.035) 07/26/19 00:43 Urine Protein Negative (Negative) 07/26/19 00:43 Urine Glucose (UA) Negative (Negative) 07/26/19 00:43 Urine Ketones Negative (Negative) 07/26/19 00:43 Urine Blood Small (Negative) H 07/26/19 00:43 Urine Nitrite Negative (Negative) 07/26/19 00:43 Urine Bilirubin Negative (Negative) 07/26/19 00:43 Urine Urobilinogen <2.0 mg/dL (<2.0) 07/26/19 00:43 Ur Leukocyte Esterase Negative (Negative) 07/26/19 00:43 Urine RBC 2 /hpf (0-5) 07/26/19 00:43 Urine WBC 1 /hpf (0-5) 07/26/19 00:43 Ur Squamous Epith Cells 1 /hpf (0-4) 07/26/19 00:43 Urine Bacteria Moderate /hpf (None) H 07/26/19 00:43 Urine Mucus Rare /hpf (None) H 07/26/19 00:43 Urine Opiates Screen Not Detected (NotDetected) 07/26/19 00:43 Ur Oxycodone Screen Not Detected (NotDetected) 07/26/19 00:43 Urine Methadone Screen Not Detected (NotDetected) 07/26/19 00:43 Ur Propoxyphene Screen Not Detected (NotDetected) 07/26/19 00:43 Ur Barbiturates Screen Not Detected (NotDetected) 07/26/19 00:43 Valproic Acid 13.5 ug/mL 07/26/19 07:49 U Tricyclic Antidepress Not Detected (NotDetected) 07/26/19 00:43 Ur Phencyclidine Scrn Not Detected (NotDetected) 07/26/19 00:43 Ur Amphetamines Screen Not Detected (NotDetected) 07/26/19 00:43 U Methamphetamines Scrn Not Detected (NotDetected) 07/26/19 00:43 U Benzodiazepines Scrn Detected (NotDetected) H 07/26/19 00:43 Urine Cocaine Screen Not Detected (NotDetected) 07/26/19 00:43 U Marijuana (THC) Screen Not Detected (NotDetected) 07/26/19 00:43 Vital Signs Temp 97.9 F 08/05/19 03:47 Pulse 80 08/05/19 03:47 Resp 18 08/05/19 03:47 BP 113/62 08/05/19 03:47 Pulse Ox 97 08/05/19 03:47 Intake & Output 06/14/20 06/15/20 06/15/20 18:59 06:59 18:59 Weight 101.831 kg Patient Condition at Discharge: Stable Plan - Discharge Summary Discharge Rx Participant: No New Discharge Prescriptions: New Benztropine Mesylate [Cogentin] 0.5 mg PO BID 30 Days tab Divalproex [Depakote] 500 mg PO BID 30 Days tablet.dr Gabapentin 600 mg PO TID 30 Days tab Atorvastatin [Lipitor] 10 mg PO DAILY 30 Days tab Melatonin 6 mg PO HS 30 Days tablet guaiFENesin [Mucinex] 600 mg PO Q12HR 30 Days tablet.er Nicotine Polacrilex [Nicorette] 2 mg BUCCAL Q4HR PRN 14 Days gum PRN Reason: Nicotine Cravings amLODIPine [Norvasc] 10 mg PO DAILY 30 Days tab QUEtiapine [SEROquel] 100 mg PO HS 30 Days tab Levothyroxine Sodium [Synthroid] 50 mcg PO 0600 30 Days tab Atenolol [Tenormin] 50 mg PO DAILY 30 Days tab Acetaminophen Tab [Tylenol] 1,000 mg PO Q8HR PRN 30 Days tab PRN Reason: Fever And/ Or Pain Paliperidone IM [Invega Sustenna] 234 mg IM DIRECTED #1 syr Continue Acetaminophen Tab [Tylenol] 1,000 mg PO Q8HR PRN tab PRN Reason: Fever And/ Or Pain Discontinued Benztropine Mesylate [Cogentin] 0.5 mg PO BID 30 Days tab Divalproex ER [Depakote ER] 250 mg PO BID 30 Days tab.er.24h Atorvastatin [Lipitor] 10 mg PO DAILY 30 Days tab Melatonin 6 mg PO HS 30 Days tablet guaiFENesin [Mucinex] 600 mg PO Q12HR 30 Days tablet.er amLODIPine [Norvasc] 10 mg PO DAILY 30 Days tab Levothyroxine Sodium [Synthroid] 50 mcg PO 0600 30 Days tab Atenolol [Tenormin] 50 mg PO DAILY 30 Days tab Paliperidone IM [Invega Sustenna] 234 mg IM DIRECTED #1 syr Propranolol [Inderal] 20 mg PO BID PRN 30 Days tab PRN Reason: Akithesia Discharge Medication List Acetaminophen Tab [Tylenol] 1,000 mg PO Q8HR PRN tab 07/24/19 [Rx] Acetaminophen Tab [Tylenol] 1,000 mg PO Q8HR PRN 30 Days tab 08/05/19 [Rx] Atenolol [Tenormin] 50 mg PO DAILY 30 Days tab 08/05/19 [Rx] Atorvastatin [Lipitor] 10 mg PO DAILY 30 Days tab 08/05/19 [Rx] Benztropine Mesylate [Cogentin] 0.5 mg PO BID 30 Days tab 08/05/19 [Rx] Divalproex [Depakote] 500 mg PO BID 30 Days tablet. 08/05/19 [Rx] Gabapentin 600 mg PO TID 30 Days tab 08/05/19 [Rx] Levothyroxine Sodium [Synthroid] 50 mcg PO 0600 30 Days tab 08/05/19 [Rx] Melatonin 6 mg PO HS 30 Days tablet 08/05/19 [Rx] Nicotine Polacrilex [Nicorette] 2 mg BUCCAL Q4HR PRN 14 Days gum 08/05/19 [Rx] Paliperidone IM [Invega Sustenna] 234 mg IM DIRECTED #1 syr 08/05/19 [Rx] QUEtiapine [SEROquel] 100 mg PO HS 30 Days tab 08/05/19 [Rx] amLODIPine [Norvasc] 10 mg PO DAILY 30 Days tab 08/05/19 [Rx] guaiFENesin [Mucinex] 600 mg PO Q12HR 30 Days tablet.er 08/05/19 [Rx] Follow up Appointment(s)/Referral(s): Bj Lara Jr, [Primary Care Provider] - 1 Week Activity/Diet/Wound Care/Special Instructions: Activity and diet as tolerated. Avoid the use of street drugs and alcohol. Take all medications as prescribed. When you are in need of refills on your medications please contact your medical provider and/or outpatient psychiatrist to have this done. Please go to scheduled outpatient appointment for aftercare treatment. If symptoms return or become worse, call the crisis line at and/or go to the nearest emergency room for evaluation. Discharge Disposition: HOME SELF-CARE
[2019-08-05 14:36] VITALS: TEMP 98.4
[2019-08-05] MEDS ORDERED: QUEtiapine 100 MG TAB PO SCH (21:00)
[2019-08-16] MEDS ORDERED: PALIPERIDONE IM 234 MG/1.5 ML SYG IM SCH (09:00)
== END 2019-08-05 14:15 | disposition home or self-care (01) | DRG 885 ==
LOC: EC 00:13 → 3MHU 02:45
PROVIDERS: ADMIT Psychiatry & Neurology Psychiatry; ATTEND Psychiatry & Neurology Psychiatry
DX: F20.9 Schizophrenia, unspecified (principal); Z68.41 Body mass index [BMI] 40.0-44.9, adult; E07.9 Disorder of thyroid, unspecified; E66.3 Overweight; I10 Essential (primary) hypertension; F41.9 Anxiety disorder, unspecified; G47.00 Insomnia, unspecified; G62.9 Polyneuropathy, unspecified; G89.29 Other chronic pain; M25.551 Pain in right hip; M25.552 Pain in left hip; H54.62 Unqualified visual loss, left eye, normal vision right eye; F17.210 Nicotine dependence, cigarettes, uncomplicated; Z71.6 Tobacco abuse counseling; Z79.890 Hormone replacement therapy; Z79.899 Other long term (current) drug therapy; Z71.3 Dietary counseling and surveillance; Z98.51 Tubal ligation status; Z88.6 Allergy status to analgesic agent; Z88.8 Allergy status to other drugs, medicaments and biological substances; Z83.3 Family history of diabetes mellitus; Z82.49 Family history of ischemic heart disease and other diseases of the circulatory system; Z82.1 Family history of blindness and visual loss; Z82.69 Family history of other diseases of the musculoskeletal system and connective tissue
CPT/HCPCS: 80053; 80164; 80306; 81001; 82075; 85025; 99285

== ENCOUNTER → 2019-09-02 | Outpatient (CLI) | payer OTHER ==
[2019-09-02 12:04] LABS: Basophils % (A) 1 %; Eosinophils # (A) 0.1 k/uL (0-0.7); Eosinophils % (A) 2 %; HCT 41.7 % (34.0-46.0); HGB 13.4 gm/dL (11.4-16.0); Lymphocytes # (A) 1.7 k/uL (1.0-4.8); Lymphocytes % (A) 25 %; MCH 31.8 pg (25.0-35.0); MCHC 32.2 g/dL (31.0-37.0); MCV 98.6 fL (80.0-100.0); Mean Platelet Volume 7.7; Monocytes # (A) 0.4 k/uL (0-1.0); Monocytes % (A) 6 %; Neutrophils # (A) 4.5 k/uL (1.3-7.7); Neutrophils % (A) 65 %; Platelet Count 124 k/uL (150-450); RBC 4.23 m/uL (3.80-5.40); RDW 12.9 % (11.5-15.5)
[2019-09-02 16:09] LABS: African American GFR (CKD) 111.6 (60.0-200.0); Albumin 4.1 g/dL (3.80-4.90); Albumin/Globulin Ratio 1.58 (1.60-3.17); Anion Gap 7.8 mmol/L (4.00-12.00); BUN/Creat Ratio 36.67 Ratio (12.00-20.00); Calcium 9.4 mg/dL (8.7-10.3); Carbon Dioxide 25.2 mmol/L (21.6-31.8); Globulin 2.6 g/dL (1.6-3.3); Non-African American GFR(CKD) 96.3 (60.0-200.0); Potassium 4.1 mmol/L (3.5-5.5); Total Bilirubin 0.3 mg/dL (0.3-1.2); Total Protein 6.7 g/dL (6.2-8.2)
== END | disposition home or self-care (01) ==
LOC: LABWHC1 10:39
PROVIDERS: ATTEND Nurse Practitioner Psychiatric/Mental Health
DX: F20.9 Schizophrenia, unspecified (principal); Z79.899 Other long term (current) drug therapy
CPT/HCPCS: 36415; 80053; 80164; 85025

== ENCOUNTER 2020-03-05 21:12 | Emergency (ER) | payer MEDICARE, OTHER ==
[2020-03-05 21:24] VITALS: BP 127/61; PULSE 81; RESP 20; TEMP 98.8
[2020-03-05] MEDS ORDERED: PALIPERIDONE IM 234 MG/1.5 ML SYG IM STA (21:48)
--- NOTE | 2020-03-05 21:53 | ED ---
Psych HPI - General Chief Complaint: Psychiatric Symptoms Stated Complaint: Mental Health Time Seen by Provider: 03/05/20 21:25 Source: patient, police Mode of arrival: ambulatory - History of Present Illness Initial Comments: This patient is a 64-year-old woman who is brought by local law enforcement to have Court mandated psychiatric medication administration. When I interview the patient, she is without any medical complaints and states that she is feeling pretty well. MD Complaint: other Associated Psychiatric Symptoms: none History of same: Yes Quality: resolved prior to arrival Improves With: none Worsens With: none Associated Symptoms: denies other symptoms - Related Data Previous Rx's Medication Instructions Recorded Acetaminophen Tab [Tylenol] 1,000 mg PO Q8HR PRN tab 07/24/19 Acetaminophen Tab [Tylenol] 1,000 mg PO Q8HR PRN 30 Days tab 08/05/19 Atorvastatin [Lipitor] 10 mg PO DAILY 30 Days tab 08/05/19 Benztropine Mesylate [Cogentin] 0.5 mg PO BID 30 Days tab 08/05/19 Divalproex [Depakote] 500 mg PO BID 30 Days tablet.dr 08/05/19 Gabapentin 600 mg PO TID 30 Days tab 08/05/19 Levothyroxine Sodium [Synthroid] 50 mcg PO 0600 30 Days tab 08/05/19 Melatonin 6 mg PO HS 30 Days tablet 08/05/19 Nicotine Polacrilex [Nicorette] 2 mg BUCCAL Q4HR PRN 14 Days gum 08/05/19 Paliperidone IM [Invega Sustenna] 234 mg IM DIRECTED #1 syr 08/05/19 QUEtiapine [SEROquel] 100 mg PO HS 30 Days tab 08/05/19 amLODIPine [Norvasc] 10 mg PO DAILY 30 Days tab 08/05/19 atenoloL [Tenormin] 50 mg PO DAILY 30 Days tab 08/05/19 guaiFENesin [Mucinex] 600 mg PO Q12HR 30 Days tablet.er 08/05/19 Allergies Allergy/AdvReac Type Severity Reaction Status Date / Time nicotine Allergy Severe Rash/Hives Verified 03/05/20 21:23 ibuprofen [From Motrin] Allergy Swelling Verified 03/05/20 21:23 NSAIDS (Non-Steroidal Allergy Rash/Hives Verified 03/05/20 21:23 Anti-Inflamma Review of Systems ROS Statement: Those systems with pertinent positive or pertinent negative responses have been documented in the HPI. ROS Other: All systems not noted in ROS Statement are negative. Constitutional: Denies: fever, chills Respiratory: Denies: cough, dyspnea Cardiovascular: Denies: chest pain, syncope Gastrointestinal: Denies: abdominal pain, vomiting, diarrhea Skin: Denies: rash Neurological: Denies: headache, weakness Psychiatric: Denies: anxiety, depression, auditory hallucinations, visual hallucinations, homicidal thoughts, suicidal thoughts Past Medical History Past Medical History: Hypertension, Memory Impairment, Thyroid Disorder Additional Past Medical History / Comment(s): Blind in the left eye from History of Any Multi-Drug Resistant Organisms: None Reported Past Surgical History: Tubal Ligation Past Anesthesia/Blood Transfusion Reactions: No Reported Reaction Past Psychological History: Anxiety, Bipolar, Depression, Schizophrenia Smoking Status: Former smoker Past Alcohol Use History: None Reported Past Drug Use History: None Reported - Past Family History Father Family Medical History: Unable to Obtain Additional Family Medical History / Comment(s): Father is alive at age 86 with history of diabetes. Mother Additional Family Medical History / Comment(s): Mother is alive at age 85 with history of hypertension, temporal arteritis, peripheral vascular disease status post carotid surgery, blindness in the left eye. Sister(s) Additional Family Medical History / Comment(s): Patient has 4 sisters with no major medical problems. Patient has 3 daughters with no major medical problems. General Exam Limitations: no limitations General appearance: alert, in no apparent distress Head exam: Present: atraumatic, normocephalic Eye exam: Present: normal appearance Respiratory exam: Present: normal lung sounds bilaterally. Absent: respiratory distress, wheezes, rales, rhonchi, stridor Cardiovascular Exam: Present: regular rate, normal rhythm, normal heart sounds. Absent: systolic murmur, diastolic murmur, rubs, gallop Neurological exam: Present: alert Psychiatric exam: Present: normal affect, normal mood. Absent: depressed, agitated, anxious, manic, homicidal ideation, suicidal ideation Skin exam: Present: warm, dry, intact, normal color. Absent: rash Course Vital Signs 03/05/20 21:20 Temperature 98.8 F Pulse Rate 81 Respiratory 20 Rate Blood Pressure 127/61 O2 Sat by Pulse 97 Oximetry Disposition Clinical Impression: Medication administered Disposition: HOME SELF-CARE Condition: Good Is patient prescribed a controlled substance at d/c from ED?: No Referrals: Bj Lara Jr, [Primary Care Provider] - 1-2 days
== END 2020-03-05 22:08 | disposition home or self-care (01) ==
LOC: EC 21:12
DX: Z04.6 Encounter for general psychiatric examination, requested by authority (principal); Z88.6 Allergy status to analgesic agent; Z88.8 Allergy status to other drugs, medicaments and biological substances; Z87.891 Personal history of nicotine dependence
CPT/HCPCS: 99284 ×2; 96372 ×2; 82075; J2426

== ENCOUNTER 2020-10-26 09:12 | Emergency (ER) | payer MEDICARE, OTHER ==
[2020-10-26] MEDS ORDERED: MORPHINE SULFATE 4 MG/ML SYRINGE IM STA (09:33)
--- NOTE | 2020-10-26 09:50 | ED ---
General Adult HPI - General Chief complaint: Back Pain/Injury Stated complaint: back pain Time Seen by Provider: 10/26/20 09:20 Source: patient, RN notes reviewed Mode of arrival: ambulatory Limitations: no limitations - History of Present Illness Initial comments: 64-year-old female with a past medical history of hypertension, psychiatric disorders, back problems presents to the emergency room for a chief complaint of back pain. Patient has had back pain for the past 6 weeks or so. This started after she fell out of her truck. Patient has seen [facility] and reports she has had several x-rays of her back. 4 days ago she had an MRI and an EMG performed. Patient was started on gabapentin through [facility] and is awaiting testing results for further pain management. Patient denies any bladder or bowel changes. Denies saddle anesthesia. Denies weakness of the legs. Does state that sometimes the pain radiates down the right leg. Denies fevers or chills. Patient has no other complaints at this time including shortness of breath, chest pain, abdominal pain, nausea or vomiting, headache, or visual changes. - Related Data Previous Rx's Medication Instructions Recorded Acetaminophen Tab [Tylenol] 1,000 mg PO Q8HR PRN tab 07/24/19 Acetaminophen Tab [Tylenol] 1,000 mg PO Q8HR PRN 30 Days tab 08/05/19 Atorvastatin [Lipitor] 10 mg PO DAILY 30 Days tab 08/05/19 Benztropine Mesylate [Cogentin] 0.5 mg PO BID 30 Days tab 08/05/19 Divalproex [Depakote] 500 mg PO BID 30 Days tablet. 08/05/19 Gabapentin 600 mg PO TID 30 Days tab 08/05/19 Levothyroxine Sodium [Synthroid] 50 mcg PO 0600 30 Days tab 08/05/19 Melatonin 6 mg PO HS 30 Days tablet 08/05/19 Nicotine Polacrilex [Nicorette] 2 mg BUCCAL Q4HR PRN 14 Days gum 08/05/19 Paliperidone IM [Invega Sustenna] 234 mg IM DIRECTED #1 syr 08/05/19 QUEtiapine [SEROquel] 100 mg PO HS 30 Days tab 08/05/19 amLODIPine [Norvasc] 10 mg PO DAILY 30 Days tab 08/05/19 atenoloL [Tenormin] 50 mg PO DAILY 30 Days tab 08/05/19 guaiFENesin [Mucinex] 600 mg PO Q12HR 30 Days tablet.er 08/05/19 Allergies Allergy/AdvReac Type Severity Reaction Status Date / Time nicotine Allergy Severe Rash/Hives Verified 10/26/20 09:19 ibuprofen [From Motrin] Allergy Swelling Verified 10/26/20 09:19 NSAIDS (Non-Steroidal Allergy Rash/Hives Verified 10/26/20 09:19 Anti-Inflamma Review of Systems ROS Statement: Those systems with pertinent positive or pertinent negative responses have been documented in the HPI. ROS Other: All systems not noted in ROS Statement are negative. Past Medical History Past Medical History: Hypertension, Memory Impairment, Thyroid Disorder Additional Past Medical History / Comment(s): Blind in the left eye from , Back problems History of Any Multi-Drug Resistant Organisms: None Reported Past Surgical History: Tubal Ligation Past Anesthesia/Blood Transfusion Reactions: No Reported Reaction Past Psychological History: Anxiety, Bipolar, Depression, Schizophrenia Smoking Status: Current every day smoker Past Alcohol Use History: None Reported Past Drug Use History: None Reported - Past Family History Father Family Medical History: Unable to Obtain Additional Family Medical History / Comment(s): Father is alive at age 86 with history of diabetes. Mother Additional Family Medical History / Comment(s): Mother is alive at age 85 with history of hypertension, temporal arteritis, peripheral vascular disease status post carotid surgery, blindness in the left eye. Sister(s) Additional Family Medical History / Comment(s): Patient has 4 sisters with no major medical problems. Patient has 3 daughters with no major medical problems. General Exam Limitations: no limitations General appearance: alert, in no apparent distress Head exam: Present: atraumatic Eye exam: Present: normal appearance, PERRL, EOMI. Absent: scleral icterus, conjunctival injection ENT exam: Present: normal exam, mucous membranes moist Neck exam: Present: normal inspection, full ROM. Absent: tenderness Respiratory exam: Present: normal lung sounds bilaterally. Absent: respiratory distress, wheezes Cardiovascular Exam: Present: regular rate, normal rhythm, normal heart sounds GI/Abdominal exam: Present: soft, normal bowel sounds. Absent: distended, tenderness Extremities exam: Present: normal capillary refill (bilat lower extremities) Neurological exam: Present: alert Course Vital Signs 10/26/20 09:16 Temperature 98.4 F Pulse Rate 105 H Respiratory 20 Rate Blood Pressure 157/72 O2 Sat by Pulse 96 Oximetry Medical Decision Making - Medical Decision Making Vitals are stable. Patient is well appearing. Patient is afebrile. Denies any red flag symptoms. I did recommend x-rays but patient states she has already had several and does not need any additional x-rays. States she just needs pain management. Patient states Toradol does not help. He will try IM morphine and sent patient home with Tylenol 3 for the next day until she can follow-up with [facility] in the office opens tomorrow. I did discuss any red flag symptoms that would require her to return to the emergency room and she is agreeable. Disposition Clinical Impression: Mechanical back pain Disposition: HOME SELF-CARE Condition: Good Instructions (If sedation given, give patient instructions): Acute Low Back Pain (ED) Additional Instructions: Please take Tylenol 3 for pain as needed. Follow-up with orthopedics tomorrow morning. Return to the emergency room for any worsening symptoms. Is patient prescribed a controlled substance at d/c from ED?: No Referrals: Anibal Garcia III, MD [Primary Care Provider] - 1-2 days Time of Disposition: 09:59
[2020-10-26] MEDS ORDERED: ACET/COD 300 MG/30 MG STARTER PACK 6 TAB BTL PO STA (09:59)
[2020-10-26 10:07] VITALS: BP 134/74; PULSE 101; RESP 18; TEMP 98.5
== END 2020-10-26 10:04 | disposition home or self-care (01) ==
LOC: EC 09:12
DX: M54.9 Dorsalgia, unspecified (principal); I10 Essential (primary) hypertension; F17.200 Nicotine dependence, unspecified, uncomplicated; F31.9 Bipolar disorder, unspecified; F41.9 Anxiety disorder, unspecified; Z88.6 Allergy status to analgesic agent
CPT/HCPCS: 99283; 96372; J2270

== ENCOUNTER → 2020-12-02 | Outpatient (CLI) | payer MEDICARE, OTHER ==
--- NOTE | 2020-12-03 10:10 | NM ---
EXAMINATION TYPE: NM bone scan whole body DATE OF EXAM: 12/02/2020 COMPARISON: None HISTORY: Radiculopathy, back pain Delayed whole-body scanning was performed following the injection of 24.2 mCi Tc 99m MDP. Images acq uired 3 hours post injection. FINDINGS: Patient unable to empty bladder. Soft tissue uptake felt to be within normal limits. Uptake within th e feet, ankles, shoulders, sternoclavicular joints, hips and elbows, wrists and hands thought likely to be degenerative. Some mild uptake is noted in the lower lumbar spine possibly related to facet art hropathy or degenerative disc disease. Uptake in the maxilla and mandible likely due to periodontal d isease. Uptake in the cervical spine likely degenerative. IMPRESSION: Degenerative changes.
== END | disposition home or self-care (01) ==
LOC: RADNMMAIN 11:43
PROVIDERS: ATTEND Physical Medicine & Rehabilitation
DX: M47.26 Other spondylosis with radiculopathy, lumbar region (principal)
CPT/HCPCS: 78306; A9503

== ENCOUNTER → 2021-06-10 | Outpatient (CLI) | payer MEDICARE, OTHER ==
[2021-06-10 11:35] VITALS: BP 111/73; PULSE 93; RESP 18; TEMP 98
--- NOTE | 2021-06-10 11:52 | P.CON ---
Consult Note - . Consult date: 06/10/21 Assessment/Plan:: HISTORY OF PRESENT ILLNESS: 65 yr old female as a referral from Dr Guillen presents today with severe and chronic lower back pain secondary to disc bulges, spinal stenosis, neuroforaminal stenoses, DDD and facet arthropathy for evaluation. A shunt states her pain is 10 out of 10 in intensity, squeezing, tight, pinching sensation the lower aspect of her lumbar spine with radiation of pain to the bilateral hips and to the posterior aspects of the lower extremities. Pain is provoked with walking for periods of 10 minutes. Pain is relieved with medications (Tylenol OTC), heat daily, physical therapy which ended December 2020, daily home stretching regimen, laying supine and rest Past Medical History: Hypertension, Memory Impairment, Thyroid Disorder Additional Past Medical History / Comment(s): Blind in the left eye from , Back problems History of Any Multi-Drug Resistant Organisms: None Reported Past Surgical History: Tubal Ligation Past Anesthesia/Blood Transfusion Reactions: No Reported Reaction Past Psychological History: Anxiety, Bipolar, Depression, Schizophrenia Smoking Status: Current every day smoker Past Alcohol Use History: None Reported Past Drug Use History: None Reported - Past Family History Father Family Medical History: Unable to Obtain Additional Family Medical History / Comment(s): Father is alive at age 86 with history of diabetes. Mother Additional Family Medical History / Comment(s): Mother is alive at age 85 with history of hypertension, temporal arteritis, peripheral vascular disease status post carotid surgery, blindness in the left eye. Sister(s) Additional Family Medical History / Comment(s): Patient has 4 sisters with no major medical problems. Patient has 3 daughters with no major medical problems. All: See list Meds: See list REVIEW OF ORGAN SYSTEMS: CONSTITUTIONAL: No fevers or chills. No recent weight loss. HEENT: No visual acuity loss, eye pain, difficulties with hearing. No nosebleeds. No difficulty swallowing. RESPIRATORY: Denies any troubles with breathing or dyspnea on exertion. CARDIOVASCULAR: Denies any chest pain, palpitations, or recent heart attacks. GASTROINTESTINAL: Denies fatty food intolerance. Has change in bowel habits and gas bloat. GENITOURINARY: Denies any blood in urine. Has increased urinary frequency. NEUROLOGICAL: + numbness and tingling along the distal extremities. No seizure disorders or headaches. MUSCULOSKELETAL: + back pain SKIN: No skin cancer. No rash. PSYCHIATRIC: Denies current depression or suicidal thoughts. ENDOCRINE: Denies current thyroid disorders. Denies any blood sugar glucose intolerance. HEME/LYMPHATIC: Denies any lumps and bumps around the neck. History of deep venous thrombosis. ALLERGY/IMMUNOLOGY: No immunoglobulin therapy. No immune deficiencies. BREAST: Denies current breast lumps, pain or nipple discharge. Physical Examinations : Constitutional : Cooperative , not in acute distress . HEENT: Neck supple. No Lymphadenopathy. Normal thyroid size . Eyes no ptosis , no icterus, no photophobia . Hearing intact. Normal oropharynx. No Thrush. Respiratory : Chest clear to auscultations bilaterally. No wheezing. No rhonchi. Cardiovascular : Regular rate and rhythm , S1 / S2. No S3 . No S4. Gastrointestinal : Abdomen soft. No tenderness. Bowel sounds x 4. No organomegaly . Genitourinary : Deferred. Neurologic : Cranial nerve II to XII intact. No focal neurological deficits. Psychiatric : alert & oriented x 3. Matching mood & appropriate affect. Judgment & insight intact. Lymphatic No Lymphadenopathy. Musculoskeletal : Cervical Spine Motor strength in the deltoid and biceps: Normal right side. Normal Left side Motor strength biceps and the wrist extensors: Normal right side . Normal left side Motor strength in the triceps muscle: Normal right side. Normal left side Deep tendon reflexes: Normal at the biceps. Normal at Brachioradialis. Normal at triceps Cervical facet loading test: positive bilaterally Spurling test: positive bilaterally Neck distraction test: positive bilaterally Sen sign: positive bilaterally Lumbar spine Motor strength lower extremities ,thigh and legs 5/5 Right side , 5/5 Left side Deep tendon reflexes : Normal Knee Jerk. Normal Ankle Jerk Vertebral body tenderness over L4 Lumbar facet Loading Test: positive Right / positive Left Range of motion of the lumbar spine Flexion 30 degrees, extension 10 degrees Straight Leg Raise test: Left/ Right positive at <40 degree [place] test: positive right / positive left. Severe tenderness over the Sacroiliac joint on the Right / Left sides [place] test: positive bilaterally Seated flexion test: positive bilaterally. Imaging: MRI without contrast the lumbar spine from 10/23/20 reviewed Assessment/ Plan : Lumbar DDD, Spondylosis, Facet Arthropathy Recommendation of LESI L4-L5. May need a series of injections, up to 3 within a six-month period, for optimal pain relief. Risks, benefits of procedure discussed and patient verbalized understanding. Denies aspirin or anti- coagulant use. Denies Medical History of Diabetes. All questions answered. I have spent greater than 50 minutes on patient care today. Dr Cooper was available by phone for the evaluation of this patient. The time was used to review the medical records including relevant urine studies and Prescription history (MAPs), review of the available imaging, evaluation and examination of the patient, coordination of care with the medical staff and if applicable referring physicians, as well as creation of the medical record PQRS Measure Charge Sheet Mode of Arrival: Ambulatory - Pain Location Lower Back Non-Pharmacological Interventions: Heat, Home Exercise, Ice, Inactivity, Meditation, Physical Therapy, Position/Reposition, Stretching PQRS Narrative: Smoking Status Former smoker Blood Pressure 111/73 Pain Intensity [Lower Back] 10 Scale Used Numeric (1 - 10) Hx Alcohol Use (MH) No Home Medications: Ambulatory Orders Acetaminophen Tab [Tylenol] 1,000 mg PO Q8HR PRN 30 Days tab 08/05/19 Atorvastatin [Lipitor] 10 mg PO DAILY 30 Days tab 08/05/19 Levothyroxine Sodium [Synthroid] 50 mcg PO 0600 30 Days tab 08/05/19 amLODIPine [Norvasc] 10 mg PO DAILY 30 Days tab 08/05/19 Benztropine Mesylate [Cogentin] 0.5 mg PO DAILY 03/22/21 Propranolol HCl 80 mg PO DAILY 03/22/21 Ziprasidone [Geodon] 80 mg PO DAILY 03/22/21 hydrOXYzine pamoate [hydrOXYzine PAMOATE] 25 mg PO DAILY 03/22/21 lamoTRIgine [LaMICtal ODT] 1 tab PO DAILY 06/10/21
== END ==
LOC: PNWHC3 10:55
PROVIDERS: ATTEND Specialist
DX: M51.36 Other intervertebral disc degeneration, lumbar region (principal); M47.816 Spondylosis without myelopathy or radiculopathy, lumbar region; M51.26 Other intervertebral disc displacement, lumbar region; G89.29 Other chronic pain; M48.061 Spinal stenosis, lumbar region without neurogenic claudication; I10 Essential (primary) hypertension; F41.9 Anxiety disorder, unspecified; F31.9 Bipolar disorder, unspecified; F20.9 Schizophrenia, unspecified; F17.200 Nicotine dependence, unspecified, uncomplicated; Z88.8 Allergy status to other drugs, medicaments and biological substances
CPT/HCPCS: 99211

== ENCOUNTER 2021-07-08 10:02 | Day surgery (SDC) | payer MEDICARE, OTHER ==
[2021-07-06 15:35] VITALS: BMI 42.0
[2021-07-08] MEDS ORDERED: LIDOCAINE 1% (10MG/ML) FOR IV START INTRADERMA PRN (10:16)
[2021-07-08 10:25] VITALS: TEMP 96.8
[2021-07-08] MEDS: LACTATED RINGERS 1,000 ML IV SCH ×2 (10:30→10:34)
[2021-07-08] MEDS ORDERED: methylPREDNISolone ACETATE 40 MG/ML 1 ML VIAL ONE (10:35)
[2021-07-08] MEDS ORDERED: IOPAMIDOL M200 10 ML VIAL ONE (10:35)
[2021-07-08] MEDS ORDERED: fentaNYL (PF) 50 MCG/ML 2 ML AMP ONE (10:35)
[2021-07-08] MEDS ORDERED: MIDAZOLAM 2 MG/2 ML VIAL ONE (10:35)
--- NOTE | 2021-07-08 10:53 | P.PCN ---
Date of Procedure: 07/08/21 Procedure(s) Performed: PREOPERATIVE DIAGNOSIS: 1- Lumbar Degenerative Disc Diseases 2-Lumbar spondylosis with Facet arthropathy without myelopathy POSTOPERATIVE DIAGNOSIS: Same as preop diagnosis. PROCEDURE 1. Lumbar epidural steroid injection under fluoroscopic guidance at the L4-5 level. (Fluoroscopy imaging was available in radiology department) 2. Lumbar epidurogram. ANESTHESIA: Local with 1% lidocaine 3 ml and , moderate sedation with intravenous Versed 2 mg ,and fentanyle 100 Mcg EBL: Minimal PROCEDURE INDICATION: The patient with low back pain and radiculitis symptoms unresponsive to conservative treatment. Fluoroscopy was used to optimize visualization of the needle placement and to maximize safety. PROCEDURE DESCRIPTION / TECHNIQUE: The patient was seen and identified in the preoperative area. Risks, benefits, complications including but not limited to infections ,bleeding ,allergic reaction to the medications ,nerve damage and not complete pain releife , and alternatives were discussed with the patient. The patient agreed to proceed with the procedure and signed the consent. IV was started, and vital signs were stable. Patient was taken to the OR and time out was completed. The patient was placed in the prone position on procedure table and a pillow was placed under the abdomen to reduce lumbar lordosis. The lumbosacral area was prepped and draped in the usual sterile fashion.ere closely monitored during the procedure. C onscious sedation was used during the procedure to decrease patients anxiety. Vital signs was monitered during the entire procedure. Using anterior-posterior fluoroscopy, the L4-5 interlaminar space was identified and the skin over this site was marked and then infiltrated with 1% lidocaine subcutaneously. Subsequently, a 18-gauge Tuohy epidural needle was inserted and advanced toward the epidural space using the ``Loss of resistance technique and guided by AP and lateral fluoroscopy. The correct needle position in the epidural space was verified with the injection of 2 mL of the water soluble contrast dye Isovue 200 contrast and observing an excellent epidurogram with the epidural spread of the dye, after negative aspiration for blood and CSF and in the absence of paresthesias. Again after negative aspiration, a 6 ml mixture containing 80 mg of Depo-medrol , and 2 ml of preservative free Normal Saline, and 2 ml of preservative free lidocaine 1% solution was injected and a washout of epidurogram was seen. Needle was withdrawn intact, skin was cleansed, and bandages were applied. COMPLICATIONS: None DISPOSITION / PLANS: The patient was placed in a supine position and transferred to the recovery area in a stable condition for observation. There was no evidence of lower extremity motor or sensory deficit after the procedure. Patient was discharged from the recovery room after meeting discharge criteria. Home discharge instructions were given to the patient by the staff. The patient was reexamined prior to discharge. The patient will schedule a follow up in the clinic in 2-4 weeks.
[2021-07-08] MEDS ORDERED: IV FLUID CONTINUATION 1,000 ML IV ONE (10:57)
--- NOTE | 2021-07-08 11:23 | FL ---
EXAMINATION TYPE: FL guided pain mgmt statistic DATE OF EXAM: 07/08/2021 HISTORY: Fluoroscopy time 1 seconds of fluoroscopy provided. IMPRESSION: 1. Fluoroscopy time.
[2021-07-08 11:34] VITALS: PULSE 84; RESP 16
[2021-07-08] MEDS ORDERED: HYDROcodone/APAP 7.5-325MG 1 EACH TAB ONE (11:43)
[2021-07-08] MEDS ORDERED: HYDROmorphone 0.5 MG/0.5 ML SYRINGE IVP ONE (11:45)
[2021-07-08] MEDS ORDERED: HYDROcodone/APAP 7.5-325MG 1 EACH TAB PO ONE (11:48)
[2021-07-08 12:00] VITALS: BP 116/69
== END 2021-07-08 12:45 | disposition home or self-care (01) ==
LOC: ORPAIN 10:02
PROVIDERS: ATTEND Specialist
DX: M47.26 Other spondylosis with radiculopathy, lumbar region (principal); M51.16 Intervertebral disc disorders with radiculopathy, lumbar region
CPT/HCPCS: 62323; J2250; J1030; J3010; J1170; Q9966; 99152

== ENCOUNTER → 2021-07-26 | Outpatient (CLI) | payer MEDICARE, OTHER ==
[2021-07-26 13:33] VITALS: BP 114/61; PULSE 97; RESP 18; TEMP 98
--- NOTE | 2021-07-26 13:34 | P.PN ---
Subjective Progress Note Date: 07/26/21 Principal diagnosis: A 65 yr old female with a history of severe and chronic low back pain s/p fall "a few months ago" secondary to lumbar degenerative disc diseases and lumbar spondylosis with facet arthropathy presents today for evaluation s/p LESI L4-L5 #1. She experienced 90% pain relief x 2 weeks, then she fell again in her apartment, at the grocery store and outside her vehicle which provoked the pain. Pain level is 6/10 in intensity, dull and achy in the lower aspects of the lumbar spine with radiation of pain down the back of her legs BL. Pain is provoked by walking or standing for periods of 20 min or more. Pain is alleviated with home based PT which she completed this winter 2021, heat which was contraindicated due to possible stiffness, medications (Tylenol OTC), reclinging with LEs elevated and laying supine. Interventional pain procedures completed include LESI L4-L5 #1 Patient is currently on Tylenol OTC Patient denies any side effects of the medication(s), denies excessive drowsiness or sleepiness, denies suicidal ideation and reports that the current pain medication is helping to control the pain and improve activities of daily living. Patient denies any motor or sensory deficits. Patient denies any fever or night sweats, denies any change in the bowel movements or urination. Physical Examination: -Constitutional: Cooperative. Not in acute distress . -HEENT: Neck is supple. No lymphadenopathy. No thyromegaly. Normal thyroid size. Eyes: No ptosis , no icterus, no photophobia. ENT: No auditory deficits. Normal oropharynx. No Thrush. - Respiratory: Chest clear to auscultations bilaterally. No wheezing. No rhonchi. - Cardiovascular: Regular rate and rhythm. S1 / S2 , no S3 , no S4. - Gastrointestinal: Abdomen soft no tenderness. Bowel sounds positive in all four quadrants. No organomegaly. - Genitourinary: Deferred. - Neurologic: Cranial nerve II to XII intact. No focal neurological deficits. - Psychatric: Alert & oriented x 3. Matching mood & appropriate affect. Judgment and insight intact. - Lymphatic: No Lymphadenopathy. - Musculoskeletal: Cervical spine: Muscle bulk/ tone/ strength in the bilateral upper extremities normal Vertebral body tenderness to palpation over Facet loading test positive Thoracic spine Muscle bulk / tone/ strength in the bilateral paraspinal muscles normal Vertebral body tender to palpation over Facet loading test positive Lumbar spine: Motor bulk/ tone/ strength lower extremities , thigh and legs : 5/5 Deep tendon reflexes : Normal Knee Jerk. Normal Ankle Jerk . Vertebral body tenderness to palpation over L4, L5 Lumbar Facet Loading Test positive Straight Leg Raise: positive at 30 degrees right side/ left side Gaenslen's Test positive Sacral spine : Severe tenderness over the Sacroiliac joint: right side / left side Range of motion: Flexion of the lumbar spine <60 degrees Range of motion: Extension of the lumbar spine <20 degrees Gaenslen's Test positive Vikas's Test positive [place] test: positive right side / left side Thigh Thrust Test Sacral Thrust Test Assessment and plan: Chronic low back pain secondary to lumbar degenerative disc disease , lumbar spondylosis with facet arthropathy without myelopathy Recommendation of CELSO L4-L5 #2. May need a series of injections, up to 3 within a six-month period, for optimal pain relief. Risks, benefits of procedure discussed and pt verbalized understanding. Denies anticoagulant use or medical history of diabetes. All patient questions answered MAPS reviewed and it was appropriate. I have spent 31 minutes on patient care today. Dr Cooper was available by phone for the evaluation of this patient. The time was used to review the medical records including relevant urine studies and Prescription history (MAPs), review of the available imaging, evaluation and examination of the patient, coordination of care with the medical staff and if applicable referring physicians, as well as creation of the medical record PQRS Measure Charge Sheet Mode of Arrival: Ambulatory PQRS Narrative: Smoking Status Former smoker Blood Pressure 114/61 Pain Intensity [Bilateral 6 Lower Back] Scale Used Numeric (1 - 10) Hx Alcohol Use (MH) No Home Medications: Ambulatory Orders Acetaminophen Tab [Tylenol] 1,000 mg PO Q8HR PRN 30 Days tab 08/05/19 Atorvastatin [Lipitor] 10 mg PO DAILY 30 Days tab 08/05/19 Levothyroxine Sodium [Synthroid] 50 mcg PO 0600 30 Days tab 08/05/19 amLODIPine [Norvasc] 10 mg PO DAILY 30 Days tab 08/05/19 Benztropine Mesylate [Cogentin] 0.5 mg PO DAILY 03/22/21 Propranolol HCl 80 mg PO DAILY 03/22/21 Ziprasidone [Geodon] 80 mg PO DAILY 03/22/21 hydrOXYzine pamoate [hydrOXYzine PAMOATE] 25 mg PO DAILY 03/22/21 lamoTRIgine [LaMICtal ODT] 200 mg PO DAILY 06/10/21
== END ==
LOC: PNWHC3 12:55
PROVIDERS: ATTEND Specialist
DX: M51.36 Other intervertebral disc degeneration, lumbar region (principal); M47.816 Spondylosis without myelopathy or radiculopathy, lumbar region; G89.29 Other chronic pain; Z87.891 Personal history of nicotine dependence; Z88.8 Allergy status to other drugs, medicaments and biological substances
CPT/HCPCS: 99211

== ENCOUNTER 2021-08-15 15:26 | Emergency (ER) | payer MEDICARE, OTHER ==
[2021-08-15 16:01] VITALS: RESP 18
--- NOTE | 2021-08-15 16:15 | ED ---
General Adult HPI - General Chief complaint: Back Pain/Injury Stated complaint: Back/Leg pain Time Seen by Provider: 08/15/21 16:13 Source: patient Mode of arrival: ambulatory Limitations: no limitations - History of Present Illness Initial comments: Patient presents to the ED with her neighbor for evaluation. Patient states that she has chronic lumbar back for which she is followed by pain medicine. Patient states that she received a "shot" in her back a few weeks ago with relief of her pain, but she states that her pain returned about a week ago. Patient also states that she fell a week ago, and she is unsure if she may have injured her back at that time. Patient states that she is scheduled for her next pain management "shot" on August 26. Patient states that she has been taking Tylenol for her pain without any relief. Patient states that her pain is mainly in her left lower back and radiates down the back of her left leg. Patient dexter es leg numbness or weakness, incontinence, urinary retention, fever or chills, headache, chest pain, dyspnea, dizziness, abdominal pain, nausea vomiting, dysuria/hematuria/urinary symptoms, or any other symptoms or complaints. - Related Data Home Medications Medication Instructions Recorded Confirmed Benztropine Mesylate [Cogentin] 0.5 mg PO DAILY 03/22/21 07/26/21 Propranolol HCl 80 mg PO DAILY 03/22/21 07/26/21 Ziprasidone [Geodon] 80 mg PO DAILY 03/22/21 07/26/21 hydrOXYzine pamoate [hydrOXYzine 25 mg PO DAILY 03/22/21 07/26/21 PAMOATE] lamoTRIgine [LaMICtal ODT] 200 mg PO DAILY 06/10/21 07/26/21 Previous Rx's Medication Instructions Recorded Acetaminophen Tab [Tylenol] 1,000 mg PO Q8HR PRN 30 Days tab 08/05/19 Atorvastatin [Lipitor] 10 mg PO DAILY 30 Days tab 08/05/19 Levothyroxine Sodium [Synthroid] 50 mcg PO 0600 30 Days tab 08/05/19 amLODIPine [Norvasc] 10 mg PO DAILY 30 Days tab 08/05/19 Allergies Allergy/AdvReac Type Severity Reaction Status Date / Time No Known Allergies Allergy Verified 08/15/21 16:23 Review of Systems ROS Statement: Those systems with pertinent positive or pertinent negative responses have been documented in the HPI. ROS Other: All systems not noted in ROS Statement are negative. Past Medical History Past Medical History: Eye Disorder, Hyperlipidemia, Hypertension, Memory Impairment, Thyroid Disorder Additional Past Medical History / Comment(s): Blind in the left eye from , back problems. History of Any Multi-Drug Resistant Organisms: None Reported Past Surgical History: Tubal Ligation Past Anesthesia/Blood Transfusion Reactions: No Reported Reaction Past Psychological History: Anxiety, Bipolar, Depression, Schizophrenia Smoking Status: Current every day smoker Past Alcohol Use History: None Reported Past Drug Use History: None Reported - Past Family History Father Family Medical History: Unable to Obtain, Diabetes Mellitus Mother Family Medical History: Eye Disorder, Hypertension Additional Family Medical History / Comment(s): Mother is alive at age 85 with history of temporal arteritis, peripheral vascular disease status post carotid surgery, blindness in the left eye. Sister(s) Additional Family Medical History / Comment(s): Patient has 4 sisters with no major medical problems. Patient has 3 daughters with no major medical problems. General Exam Limitations: no limitations General appearance: alert, in no apparent distress Head exam: Present: atraumatic, normocephalic Eye exam: Present: normal appearance, EOMI ENT exam: Present: mucous membranes moist Neck exam: Present: other (Trachea is in midline) Respiratory exam: Present: normal lung sounds bilaterally. Absent: respiratory distress, wheezes, rales, rhonchi, stridor Cardiovascular Exam: Present: regular rate, normal rhythm, normal heart sounds, other (Normal radial pulses bilaterally) GI/Abdominal exam: Present: soft, other (Obese abdomen). Absent: tenderness, guarding Extremities exam: Present: full ROM. Absent: tenderness, pedal edema, calf tenderness Back exam: Present: other (Mild left lumbar back tenderness). Absent: CVA tenderness (R), CVA tenderness (L) Neurological exam: Present: alert, oriented X3, other (No evidence of lower extremity neurological deficit or saddle anesthesia). Absent: motor sensory deficit Psychiatric exam: Present: normal affect, normal mood Skin exam: Present: warm, dry, intact, normal color Course Vital Signs 08/15/21 15:58 Temperature 97.8 F Pulse Rate 88 Respiratory 18 Rate Blood Pressure 116/60 O2 Sat by Pulse 96 Oximetry Medical Decision Making - Medical Decision Making Patient's lumbosacral spine x-rays are negative. Patient denies having any leg numbness/weakness or incontinence/urinary retention, and she has no evidence of lower extremity neurological deficit or saddle anesthesia on exam. I suspect that the patient's pain is likely chronic in etiology, and I do not suspect an emergent medical condition at this time. Patient reports that her pain has improved with ED treatment, and she feels comfortable going home at this time. Patient is aware of her x-ray findings. Patient was counseled about lumbar back pain/sciatica, and she was clearly explained return and follow-up instructions. Patient was instructed to follow up closely with her primary care provider. Will provide patient with a starter pack of Tylenol #3's. - Radiology Data Lumbosacral spine x-rays: No acute abnormality the lumbar spine. No compression fracture. Disposition Clinical Impression: Sciatica, Lumbar back pain Disposition: HOME SELF-CARE Condition: Stable Instructions (If sedation given, give patient instructions): Sciatica (ED), Back Pain (ED) Additional Instructions: Return to the ER immediately should you develop new or worsening pain, trouble controlling your bladder or bowels, leg numbness or weakness, shortness of breath, feeling dizzy or faint, vomiting, a fever, or new or worsening symptoms. Follow up closely with your primary care provider. Is patient prescribed a controlled substance at d/c from ED?: No Referrals: Tameka Smith NPC [Primary Care Provider] - 1-2 days Time of Disposition: 17:51
[2021-08-15] MEDS ORDERED: HYDROmorphone 1 MG/ML 1 ML SYRINGE IM STA (16:21)
--- NOTE | 2021-08-15 17:06 | XR ---
EXAMINATION TYPE: XR lumbosacral spine min 4V DATE OF EXAM: 08/15/2021 COMPARISON: NONE HISTORY: Back pain TECHNIQUE: 5 views FINDINGS: There is a mild degenerative first degree L4-5 spondylolisthesis. No lumbar compression fra cture. There is osteopenia. Sacroiliac joints are intact. Abdominal aorta is atheromatous. IMPRESSION: No acute abnormality of the lumbar spine. No compression fracture.
[2021-08-15] MEDS ORDERED: ACET/COD 300 MG/30 MG STARTER PACK 6 TAB BTL PO STA (17:50)
[2021-08-15 18:54] VITALS: BP 120/62; PULSE 84; TEMP 98
== END 2021-08-15 18:35 | disposition home or self-care (01) ==
LOC: EC 15:26
DX: M54.30 Sciatica, unspecified side (principal); E78.5 Hyperlipidemia, unspecified; I10 Essential (primary) hypertension; F17.200 Nicotine dependence, unspecified, uncomplicated
CPT/HCPCS: 72110; 99283; 96372; J1170

== ENCOUNTER 2021-08-23 10:31 | Emergency (ER) | payer MEDICARE, OTHER ==
[2021-08-23 10:44] VITALS: PULSE 102; RESP 18; TEMP 97.9
[2021-08-23] MEDS ORDERED: HYDROmorphone 1 MG/ML 1 ML SYRINGE IM STA (11:14)
[2021-08-23] MEDS ORDERED: LIDOCAINE 5% PATCH TOPICAL SCH (11:15)
--- NOTE | 2021-08-23 11:50 | ED ---
Back Pain HPI - General Chief Complaint: Back Pain/Injury Stated Complaint: Back Pain Time Seen by Provider: 08/23/21 10:59 Source: patient Limitations: no limitations - History of Present Illness Initial Comments: Patient is a 65-year-old female with a past medical history significant for chronic lumbar back pain who presents to the emergency department with a chief complaint of lower back pain. Patient follows at the pain clinic. Patient states she receives a monthly shot of cortisone that usually helps her pain however lately the shot is not providing pain relief for a longer duration like it used to. Patient reports severe lower back pain which she describes as debilitating. Patient states she has not gotten out of bed due to pain. Patient denies reinjury. Patient states the pain radiates down the bilateral legs. She denies leg weakness and numbness. Denies numbness and tingling in the groin and buttock region. Denies loss of bowel and bladder function. Patient states she has been taking Tylenol with no relief. States anti- inflammatories make her stomach sick. States muscle relaxers do not work for her pain. - Related Data Home Medications Medication Instructions Recorded Confirmed Propranolol HCl 80 mg PO DAILY 03/22/21 08/23/21 Ziprasidone [Geodon] 80 mg PO BID 03/22/21 08/23/21 lamoTRIgine [LaMICtal ODT] 200 mg PO DAILY 06/10/21 08/23/21 Atorvastatin [Lipitor] 10 mg PO HS 08/23/21 08/23/21 Benztropine Mesylate [Cogentin] 1 mg PO TID 08/23/21 08/23/21 Levothyroxine Sodium [Synthroid] 50 mcg PO DAILY 08/23/21 08/23/21 hydrOXYzine pamoate [Vistaril] 50 mg PO HS 08/23/21 08/23/21 Previous Rx's Medication Instructions Recorded amLODIPine [Norvasc] 10 mg PO DAILY 30 Days tab 08/05/19 Lidocaine 5% Patch [Lidoderm 5% 1 patch TOPICAL DAILY 7 Days #7 08/23/21 Patch] patch Allergies Allergy/AdvReac Type Severity Reaction Status Date / Time No Known Allergies Allergy Verified 08/23/21 11:58 Review of Systems ROS Statement: Those systems with pertinent positive or pertinent negative responses have been documented in the HPI. ROS Other: All systems not noted in ROS Statement are negative. Past Medical History Past Medical History: Eye Disorder, Hyperlipidemia, Hypertension, Memory Impairment, Thyroid Disorder Additional Past Medical History / Comment(s): Blind in the left eye from , back problems. History of Any Multi-Drug Resistant Organisms: None Reported Past Surgical History: Tubal Ligation Past Anesthesia/Blood Transfusion Reactions: No Reported Reaction Past Psychological History: Anxiety, Bipolar, Depression, Schizophrenia Smoking Status: Current every day smoker Past Alcohol Use History: None Reported Past Drug Use History: None Reported - Past Family History Father Family Medical History: Unable to Obtain, Diabetes Mellitus Mother Family Medical History: Eye Disorder, Hypertension Additional Family Medical History / Comment(s): Mother is alive at age 85 with history of temporal arteritis, peripheral vascular disease status post carotid surgery, blindness in the left eye. Sister(s) Additional Family Medical History / Comment(s): Patient has 4 sisters with no major medical problems. Patient has 3 daughters with no major medical problems. General Exam Limitations: no limitations General appearance: alert, in no apparent distress Respiratory exam: Present: normal lung sounds bilaterally. Absent: respiratory distress, wheezes, rales, rhonchi, stridor Cardiovascular Exam: Present: regular rate, normal rhythm, normal heart sounds. Absent: systolic murmur, diastolic murmur, rubs, gallop, clicks Back exam: Present: paraspinal tenderness (bilatera.) Course Vital Signs 08/23/21 08/23/21 10:41 12:10 Temperature 97.9 F Pulse Rate 102 H 102 H Respiratory 18 18 Rate Blood Pressure 132/71 139/67 O2 Sat by Pulse 96 94 L Oximetry Medical Decision Making - Medical Decision Making This is a 65-year-old female with chronic lumbar back pain who presents with with severe lower back pain. Thorough history and examination were performed. Patient denies reinjury. No saddle anesthesia, leg weakness, or urinary/bowel incontinence. Patient had a recent lumbar x-ray on August 15 which showed mild degenerative first-degree L4 to L5 spondylolisthesis without acute abnormality. Without reinjury or new symptoms imaging is not warranted today. Pain management options are limited. Pain controlled with Dilaudid. Patient has never tried a lidocaine patch for pain. A patch was placed over the lumbar spine in the emergency department. Patient will be discharged with Tylenol 3 starter pack and lidocaine patches. She is instructed to follow closely with her primary care provider. She will follow up at her scheduled appointment with the pain clinic this week. Return parameters discussed. Patient verbalizes understanding and is agreeable to this plan. Dr. Oakes is my attending. Disposition Clinical Impression: Spondylolisthesis at L4-L5 level, Mechanical back pain Disposition: HOME SELF-CARE Condition: Good Instructions (If sedation given, give patient instructions): Acute Low Back Pain (ED) Additional Instructions: Take medication as directed. Apply lidocaine patches as instructed. Follow up with her primary care provider in one to 2 days. Follow-up at your scheduled appointment with the pain clinic this week. Return to the emergency department if you experience new, concerning, or worsening symptoms. Prescriptions: Lidocaine 5% Patch [Lidoderm 5% Patch] 1 patch TOPICAL DAILY 7 Days #7 patch Is patient prescribed a controlled substance at d/c from ED?: Yes Referrals: Anibal Garcia III, MD [Primary Care Provider] - 1-2 days Time of Disposition: 11:59
[2021-08-23] MEDS ORDERED: ACET/COD 300 MG/30 MG STARTER PACK 6 TAB BTL PO STA (11:52)
[2021-08-23 12:12] VITALS: BP 139/67
== END 2021-08-23 12:23 | disposition home or self-care (01) ==
LOC: EC 10:31
DX: M43.16 Spondylolisthesis, lumbar region (principal); I10 Essential (primary) hypertension; E78.5 Hyperlipidemia, unspecified; E07.9 Disorder of thyroid, unspecified; F31.9 Bipolar disorder, unspecified; F41.9 Anxiety disorder, unspecified; F20.9 Schizophrenia, unspecified; F17.200 Nicotine dependence, unspecified, uncomplicated; Z79.890 Hormone replacement therapy; Z79.899 Other long term (current) drug therapy
CPT/HCPCS: 99283; 96372; J1170

== ENCOUNTER 2021-08-25 10:23 | Emergency (ER) | payer MEDICARE, OTHER ==
[2021-08-25 10:28] VITALS: BP 140/79; PULSE 104; RESP 18; TEMP 98
--- NOTE | 2021-08-25 10:57 | ED ---
Back Pain [facility] - General Chief Complaint: Back Pain/Injury Stated Complaint: Back/Leg pain here 08/23 Time Seen by Provider: 08/25/21 10:47 Source: patient Limitations: no limitations - History of Present Illness Initial Comments: Patient is a 65-year-old female presents the emergency room today with complaints of severe lower back pain with radiculopathy into bilateral lower extremities. She reports that her pain intensified since leaving the emergency room 2 days ago. She has presented to the emergency room 3 times the last 2 weeks regarding similar symptoms. She has no chronic lower back pain and was previously following with orthopedist who encouraged her to follow-up with a spinal specialist however she has not followed up with a spinal specialist. She reports that she attempted to contact her primary care provider in regards for other analgesic needs however she states that they did not call her back to schedule an appointment. She does follow with pain management for lumbar injections and has an appointment tomorrow for an injection. She denies any new trauma, weakness, focal neurological deficits, bowel or bladder incontinence, or saddle paresthesia. In addition to her chronic back pain she has a past medical history significant for hypertension, hyperlipidemia, hypothyroidism and legally blind in left eye. - Related Data Home Medications Medication Instructions Recorded Confirmed Propranolol HCl 80 mg PO DAILY 03/22/21 08/24/21 Ziprasidone [Geodon] 80 mg PO BID 03/22/21 08/24/21 lamoTRIgine [LaMICtal ODT] 200 mg PO DAILY 06/10/21 08/24/21 Atorvastatin [Lipitor] 10 mg PO HS 08/23/21 08/24/21 Benztropine Mesylate [Cogentin] 1 mg PO TID 08/23/21 08/24/21 Levothyroxine Sodium [Synthroid] 50 mcg PO DAILY 08/23/21 08/24/21 hydrOXYzine pamoate [Vistaril] 50 mg PO HS 08/23/21 08/24/21 Previous Rx's Medication Instructions Recorded amLODIPine [Norvasc] 10 mg PO DAILY 30 Days tab 08/05/19 Lidocaine 5% Patch [Lidoderm 5% 1 patch TOPICAL DAILY 7 Days #7 08/23/21 Patch] patch Allergies Allergy/AdvReac Type Severity Reaction Status Date / Time No Known Allergies Allergy Verified 08/25/21 10:28 Review of Systems ROS Statement: Those systems with pertinent positive or pertinent negative responses have been documented in the HPI. ROS Other: All systems not noted in ROS Statement are negative. Past Medical History Past Medical History: Eye Disorder, Hyperlipidemia, Hypertension, Musculoskeletal Disorder, Thyroid Disorder Additional Past Medical History / Comment(s): Blind in the left eye from , back problems. History of Any Multi-Drug Resistant Organisms: None Reported Past Surgical History: Tubal Ligation Past Anesthesia/Blood Transfusion Reactions: No Reported Reaction Past Psychological History: Anxiety, Bipolar, Depression, Schizophrenia Smoking Status: Current every day smoker Past Alcohol Use History: None Reported Past Drug Use History: None Reported - Past Family History Father Family Medical History: Unable to Obtain, Diabetes Mellitus Mother Family Medical History: Eye Disorder, Hypertension Additional Family Medical History / Comment(s): Mother is alive at age 85 with history of temporal arteritis, peripheral vascular disease status post carotid surgery, blindness in the left eye. Sister(s) Additional Family Medical History / Comment(s): Patient has 4 sisters with no major medical problems. Patient has 3 daughters with no major medical problems. General Exam Limitations: no limitations General appearance: alert, in no apparent distress, obese Head exam: Present: atraumatic, normocephalic, normal inspection Eye exam: Present: normal appearance, PERRL, EOMI. Absent: scleral icterus, conjunctival injection, periorbital swelling ENT exam: Present: normal exam, TM's normal bilaterally Neck exam: Present: normal inspection Respiratory exam: Absent: respiratory distress, accessory muscle use Extremities exam: Present: normal inspection, calf tenderness. Absent: pedal edema, joint swelling Back exam: Absent: paraspinal tenderness, vertebral tenderness Neurological exam: Present: alert, oriented X3, CN II-XII intact Psychiatric exam: Present: normal affect, normal mood Skin exam: Present: warm, dry, intact, normal color. Absent: rash Course Vital Signs 08/25/21 10:25 Temperature 98 F Pulse Rate 104 H Respiratory 18 Rate Blood Pressure 140/79 O2 Sat by Pulse 96 Oximetry Medical Decision Making - Medical Decision Making No trauma, injury or changes in radiculopathy. No focal neurologic deficits or concerns for cauda equine. No need for further diagnostic testing or laboratory studies at this time. Long discussion with patient and family member at bedside regarding need for follow-up with spinal specialist, pain management and her primary care provider to establish pain management control plan as utilization of the emergency room for chronic pain management is not recommended. Patient responded well to dose of IM Dilaudid at her last visit in the emergency room on 08/23/2021. She has been provided 2 Tylenol#3 starter packs over the last 3 weeks will not provide further Tylenol#3 starter packs. Case discussed with Dr. Bishop. Disposition Clinical Impression: Chronic low back pain, Chronic low back pain with bilateral sciatica Disposition: HOME SELF-CARE Condition: Stable Instructions (If sedation given, give patient instructions): Chronic Back Pain (DC) Additional Instructions: Please follow-up with your primary care provider, pain management and orthopedist to develop a chronic pain management treatment plan. Avoid bedrest and heavy lifting. Utilize Tylenol and ibuprofen [id number] for pain. P lease return to the Emergency Department if symptoms worsen or any other concerns. Is patient prescribed a controlled substance at d/c from ED?: No Referrals: Anibal Garcia III, MD [Primary Care Provider] - 1-2 days Poncho Cooper MD [STAFF PHYSICIAN] - 08/26/21 Time of Disposition: 11:11
[2021-08-25] MEDS ORDERED: HYDROmorphone 1 MG/ML 1 ML SYRINGE IM STA (11:03)
== END 2021-08-25 11:59 | disposition home or self-care (01) ==
LOC: EC 10:23
DX: M54.41 Lumbago with sciatica, right side (principal); M54.42 Lumbago with sciatica, left side; G89.29 Other chronic pain; E66.9 Obesity, unspecified; I10 Essential (primary) hypertension; E78.5 Hyperlipidemia, unspecified; E07.9 Disorder of thyroid, unspecified; F31.9 Bipolar disorder, unspecified; F41.9 Anxiety disorder, unspecified; F20.9 Schizophrenia, unspecified; F17.200 Nicotine dependence, unspecified, uncomplicated; Z79.890 Hormone replacement therapy; Z79.899 Other long term (current) drug therapy; Z68.41 Body mass index [BMI] 40.0-44.9, adult
CPT/HCPCS: 99283; 96372; J1170

== ENCOUNTER 2021-08-26 11:09 | Day surgery (SDC) | payer MEDICARE, OTHER ==
[2021-08-24 09:18] VITALS: BMI 42.7
[2021-08-26 11:50] VITALS: TEMP 96.6
[2021-08-26] MEDS ORDERED: LIDOCAINE 1% (10MG/ML) FOR IV START INTRADERMA ONE (11:54)
[2021-08-26] MEDS ORDERED: LACTATED RINGERS 1,000 ML IV ONE (11:54)
[2021-08-26] MEDS ORDERED: MIDAZOLAM 2 MG/2 ML VIAL ONE (12:31)
[2021-08-26] MEDS ORDERED: IOPAMIDOL M200 10 ML VIAL ONE (12:31)
[2021-08-26] MEDS ORDERED: methylPREDNISolone ACETATE 80 MG/ML 1 ML VIAL ONE (12:31)
[2021-08-26] MEDS ORDERED: fentaNYL (PF) 50 MCG/ML 2 ML AMP ONE (12:31)
--- NOTE | 2021-08-26 12:48 | P.PCN ---
Date of Procedure: 08/26/21 Description of Procedure: Procedure: 1. L4-L5 Epidural steroid injection under fluoroscopic guidance, 2. Lumbar epidurogram PREOPERATIVE DIAGNOSIS: Lumbar degenerative disc disease, and Lumbar radiculopathy. POSTOPERATIVE DIAGNOSIS: Lumbar degenerative disc disease, and Lumbar radicu lopathy. SURGEON: Val Curtis ANESTHESIA: Local with 1% lidocaine, and IV sedation: Midazolam 2 mg, and fentanyl 100 g EBL: None. Specimen removed: None Fluoroscopic image: saved to electronic medical records PROCEDURE INDICATION: The patient had history of Lumbar degenerative disc disease and Lumbar radiculopathy. Failed to conservative therapy. Presented for epidural steroid injection. PROCEDURE DESCRIPTION: The patient was seen and identified in the preoperative area. Risks, benefits, complications, and alternatives were discussed with the patient. The patient agreed to proceed with the procedure and signed the consent. IV was started, and vital signs were stable. Patient was taken to the procedure area, and time out was completed. The patient was placed in the prone position on procedure table and a pillow was placed under the abdomen to reduce lumbar lordosis. The lumbosacral area was prepped and draped in the usual sterile fashion. Critical pause was taken. Vital signs were closely monitored during the procedure. Using anterior-posterior fluoroscopy, the L4-L5 interlaminar space was identified, and skin and deeper tissues were localized with 1% lidocaine. Using anterior-posterior fluoroscopy, lateral fluoroscopy, and [id number] technique, a 20 gauge 3.5 Tuohy epidural needle entered the epidural space. After negative aspiration of CSF and blood with no paresthesias, 1 ml of [id number] contrast dye was injected and an excellent epidurogram was seen. Again after negative aspiration of CSF and blood with no paresthesias, 10 mL of block solution was injected into the epidural space. Block solution contained 80 mg of Depo-Medrol, and 9 mL of preservative-free normal saline. Needle was withdrawn intact, skin was cleansed, and bandages were applied. COMPLICATIONS: None. DISPOSITION / PLANS: The patient was placed in a supine position and transferred to the recovery area in a stable condition for observation. Patient was discharged from the recovery room after meeting discharge criteria. Home discharge instructions given to the patient by the staff. The patient was reexamined prior to discharge. The patient will schedule a follow up in the clinic in 4 weeks.
[2021-08-26] MEDS: LACTATED RINGERS 1,000 ML IV SCH ×2 (12:50→13:17)
[2021-08-26 13:05] VITALS: BP 123/69; PULSE 86; RESP 16
[2021-08-26] MEDS ORDERED: IV FLUID CONTINUATION 1,000 ML IV ONE (13:17)
--- NOTE | 2021-08-26 14:52 | FL ---
Fluoroscopy HISTORY: Pain 7 seconds fluoroscopy time supplied to the referring clinician. 2 intraoperative C-arm images docume nt the procedure. See dictated report from anesthesia.
== END 2021-08-26 13:30 | disposition home or self-care (01) ==
LOC: ORPAIN 11:09
DX: M51.36 Other intervertebral disc degeneration, lumbar region (principal); Z88.6 Allergy status to analgesic agent; Z91.09 Other allergy status, other than to drugs and biological substances; Z79.890 Hormone replacement therapy; Z79.899 Other long term (current) drug therapy; F17.200 Nicotine dependence, unspecified, uncomplicated
CPT/HCPCS: 62323; J2250; J1040; J3010; Q9966

== ENCOUNTER 2021-09-17 18:26 | Emergency (ER) | payer MEDICARE, OTHER ==
[2021-09-17 18:30] VITALS: BP 141/68; PULSE 93; RESP 18; TEMP 98.4
[2021-09-17] MEDS ORDERED: ACET/COD 300 MG/30 MG STARTER PACK 6 TAB BTL PO STA (18:40)
[2021-09-17] MEDS ORDERED: HYDROmorphone 1 MG/ML 1 ML SYRINGE IM STA (18:40)
--- NOTE | 2021-09-17 18:44 | ED ---
Back Pain [facility] - General Chief Complaint: Back Pain/Injury Stated Complaint: back pain - leg issues Time Seen by Provider: 09/17/21 18:32 Source: patient, RN notes reviewed Limitations: no limitations - History of Present Illness Initial Comments: This is a pleasant 65-year-old female with history of multiple medical issues as listed in the chart. Patient presents with recurrent low back pain and intermittent radiculopathy to both legs. No grounds a bowel movement she urination. No fever or chills. Patient has been seen here 4 times since August 15. She had plain film x-rays done that day. Subsequently, she was evaluated by Dr. Keene and [facility]. Patient had corticosteroid injections into her back. She states she's had 2 rounds. Last time was last week. These don't seem to be working. Patient is not taking any other medication at home for pain. Patient previously came here for a shot of pain medication and a Tylenol 3 starter pack. Patient requesting this. Patient is able to ambulate with increased pain. She states moving the lumbar spine exacerbates the pain. She's had no falls, no trauma, no recent surgeries. No immunosuppression. No urinary retention or incontinence. No constipation or bowel incontinence. No current radiculopathy. No headache, no fever or chills, no changes in vision or hearing, no sore throat or difficulty with speech, no neck pain, no chest pain or shortness of breath, no abdominal pain, no nausea or vomiting, no changes in urination or bowel movements, no numbness or tingling, , no skin rashes or lesions. Past medical, surgical, social, and family history reviewed. MD Complaint: back pain - Related Data Home Medications Medication Instructions Recorded Confirmed Propranolol HCl 80 mg PO DAILY 03/22/21 08/26/21 Ziprasidone [Geodon] 80 mg PO BID 03/22/21 08/26/21 lamoTRIgine [LaMICtal ODT] 200 mg PO DAILY 06/10/21 08/26/21 Atorvastatin [Lipitor] 10 mg PO HS 08/23/21 08/26/21 Benztropine Mesylate [Cogentin] 1 mg PO TID 08/23/21 08/26/21 Levothyroxine Sodium [Synthroid] 50 mcg PO DAILY 08/23/21 08/26/21 hydrOXYzine pamoate [Vistaril] 50 mg PO HS 08/23/21 08/26/21 Previous Rx's Medication Instructions Recorded amLODIPine [Norvasc] 10 mg PO DAILY 30 Days tab 08/05/19 Lidocaine 5% Patch [Lidoderm 5% 1 patch TOPICAL DAILY 7 Days #7 08/23/21 Patch] patch Ibuprofen [Motrin] 600 mg PO Q8HR PRN 10 Days #30 tab 08/25/21 Allergies Allergy/AdvReac Type Severity Reaction Status Date / Time No Known Allergies Allergy Verified 09/17/21 18:30 Review of Systems ROS Statement: Those systems with pertinent positive or pertinent negative responses have been documented in the HPI. ROS Other: All systems not noted in ROS Statement are negative. Past Medical History Past Medical History: Eye Disorder, Hyperlipidemia, Hypertension, Musculoskeletal Disorder, Thyroid Disorder Additional Past Medical History / Comment(s): Blind in the left eye from , back problems. History of Any Multi-Drug Resistant Organisms: None Reported Past Surgical History: Tubal Ligation Past Anesthesia/Blood Transfusion Reactions: No Reported Reaction Past Psychological History: Anxiety, Bipolar, Depression, Schizophrenia Smoking Status: Current every day smoker Past Alcohol Use History: None Reported Past Drug Use History: None Reported - Past Family History Father Family Medical History: Unable to Obtain, Diabetes Mellitus Mother Family Medical History: Eye Disorder, Hypertension Additional Family Medical History / Comment(s): Mother is alive at age 85 with history of temporal arteritis, peripheral vascular disease status post carotid surgery, blindness in the left eye. Sister(s) Additional Family Medical History / Comment(s): Patient has 4 sisters with no major medical problems. Patient has 3 daughters with no major medical problems. General Exam - General Exam Comments Initial Comments: Deconditioned appearing elderly female in no significant distress at the time I'm seeing her. Does not appear to be ill or toxic. Limitations: no limitations General appearance: alert, in no apparent distress, obese Head exam: Present: atraumatic, normocephalic, normal inspection Eye exam: Present: normal appearance, PERRL, EOMI. Absent: scleral icterus, conjunctival injection, periorbital swelling ENT exam: Present: normal exam, mucous membranes moist Neck exam: Present: normal inspection, full ROM. Absent: tenderness, meningismus, lymphadenopathy Respiratory exam: Present: normal lung sounds bilaterally. Absent: respiratory distress, wheezes, rales, rhonchi, stridor Cardiovascular Exam: Present: regular rate, normal rhythm, normal heart sounds. Absent: systolic murmur, diastolic murmur, rubs, gallop, clicks GI/Abdominal exam: Present: soft, normal bowel sounds. Absent: distended, tenderness, guarding, rebound, rigid Extremities exam: Present: normal inspection, full ROM, normal capillary refill. Absent: tenderness, pedal edema, joint swelling, calf tenderness Back exam: Present: normal inspection, full ROM (With discomfort), tenderness (Lumbar paraspinal), paraspinal tenderness, other (No erythema, no break in skin integrity). Absent: CVA tenderness (R), CVA tenderness (L), muscle spasm, vertebral tenderness, rash noted Neurological exam: Present: alert, oriented X3, CN II-XII intact, normal gait (Guarded but normal), reflexes normal, other (Straight leg raise negative bilaterally, great toe and sensory strength is normal). Absent: altered, motor sensory deficit Psychiatric exam: Present: normal affect, normal mood Skin exam: Present: warm, dry, intact, normal color. Absent: rash Course Vital Signs 09/17/21 18:27 Temperature 98.4 F Pulse Rate 93 Respiratory 18 Rate Blood Pressure 141/68 O2 Sat by Pulse 96 Oximetry Medical Decision Making - Medical Decision Making -There are no red flags for concerning back pathology. Specifically: -No history of cancer, this is not a mass effect, MRI not indicated. -No anticoagulation, this is not a bleed. -No fevers, no IVDU, this is not an infectious process. -No trauma, no bony pain, x-rays are not indicated. -With a normal neuro exam, and no urinary or bowel retention or incontinence, there is no clinical sign of motor defect or cauda equina - MRI is not indicated at this point. -No pulsating abdominal mass or risk factors for AAA. -Pain is relieved with rest, which is also less concerning. -I do not believe that x-rays or emergent MRI is indicated at this time. -We will treat symptomatically and discharge home with follow up instructions. -Stretching/strengthening exercise given to patient and they will be referred to physical therapy -Patient is instructed to use [id number] analgesics as directed on packaging for pain. Patient informed that she needs to receive any further pain management from her pain management doctor. Patient's also go forth with the appointment with the neurologist. Alternatively, [facility]. Patient voiced understanding. Patient given 1 dose of Dilaudid here and a Tylenol with codeine starter pack. Patient was told to return to the ER for any signs or symptoms worsen. Told to return immediately if any other problems arise. All questions answered. Treatment plan discussed. Patient in agreement Every effort has been made to ensure accuracy of this dictation. However, due to the limitations of electronic medical records and dictation devices, errors in charting still occur. Application Technician Dr. Benavides Disposition Clinical Impression: Low back pain, Lumbar radiculopathy Narrative: Recurrent low back pain with recurrent lumbar radiculopathy. No evidence of cauda equina syndrome Disposition: HOME SELF-CARE Condition: Stable Instructions (If sedation given, give patient instructions): Back Pain (ED) Additional Instructions: Follow-up with your regular physician and your face painter as discussed. You should also continue with the follow-up appointment with the neurologist. Follow-up with your regular physician as directed. Return to the ER immediately if any symptoms worsen, new symptoms arise, or any other problems develop. Is patient prescribed a controlled substance at d/c from ED?: No Referrals: Anibal Garcia III, MD [Primary Care Provider] - 09/20/21 Andrew Alicea MD [Medical Doctor] - 09/20/21 Time of Disposition: 18:43
== END 2021-09-17 19:01 | disposition home or self-care (01) ==
LOC: EC 18:26
DX: M54.16 Radiculopathy, lumbar region (principal); I10 Essential (primary) hypertension; E78.5 Hyperlipidemia, unspecified; F17.200 Nicotine dependence, unspecified, uncomplicated
CPT/HCPCS: 99283; 96372; J1170

== ENCOUNTER 2021-09-19 10:27 | Emergency (ER) | payer MEDICARE, OTHER ==
[2021-09-19 10:47] VITALS: BP 123/69; PULSE 101; RESP 18; TEMP 98.3
[2021-09-19] MEDS ORDERED: HYDROmorphone 1 MG/ML 1 ML SYRINGE IM STA (11:18)
[2021-09-19] MEDS: LIDOCAINE 5% PATCH TOPICAL STA ×2 (11:36→11:37)
--- NOTE | 2021-09-19 11:42 | ED ---
Back Pain HPI - General Chief Complaint: Back Pain/Injury Stated Complaint: revisit- leg/back pain Time Seen by Provider: 09/19/21 11:02 Source: patient, family Limitations: no limitations - History of Present Illness Initial Comments: Patient is a 65-year-old female presenting with chief complaint of back pain. Patient has been seen here multiple times for this issue. She states it is low back pain that shoots down the bilateral legs. She denies any loss of bowel or bladder control or saddle paresthesia. She denies any trauma or injury. Patient states she is unable to get in to see Dr. Alicea until 09/27/21. Patient states that Tylenol 3 helps her pain at home, however she is out. She denies any abdominal pain, chest pain, shortness of breath, fever, chills, nausea, vomiting, numbness, tingling, weakness, dysuria, hematuria, urgency, frequency, hematochezia, melena. - Related Data Home Medications Medication Instructions Recorded Confirmed Propranolol HCl 80 mg PO DAILY 03/22/21 08/26/21 Ziprasidone [Geodon] 80 mg PO BID 03/22/21 08/26/21 lamoTRIgine [LaMICtal ODT] 200 mg PO DAILY 06/10/21 08/26/21 Atorvastatin [Lipitor] 10 mg PO HS 08/23/21 08/26/21 Benztropine Mesylate [Cogentin] 1 mg PO TID 08/23/21 08/26/21 Levothyroxine Sodium [Synthroid] 50 mcg PO DAILY 08/23/21 08/26/21 hydrOXYzine pamoate [Vistaril] 50 mg PO HS 08/23/21 08/26/21 Previous Rx's Medication Instructions Recorded amLODIPine [Norvasc] 10 mg PO DAILY 30 Days tab 08/05/19 Lidocaine 5% Patch [Lidoderm 5% 1 patch TOPICAL DAILY 7 Days #7 08/23/21 Patch] patch Ibuprofen [Motrin] 600 mg PO Q8HR PRN 10 Days #30 tab 08/25/21 methylPREDNISolone Dose Pack 4 mg PO DIRECTED #1 packet 09/19/21 [Medrol Dose Pack] Allergies Allergy/AdvReac Type Severity Reaction Status Date / Time No Known Allergies Allergy Verified 09/19/21 10:47 Review of Systems ROS Statement: Those systems with pertinent positive or pertinent negative responses have been documented in the HPI. ROS Other: All systems not noted in ROS Statement are negative. Past Medical History Past Medical History: Eye Disorder, Hyperlipidemia, Hypertension, Musculoskeletal Disorder, Thyroid Disorder Additional Past Medical History / Comment(s): Blind in the left eye from , back problems. History of Any Multi-Drug Resistant Organisms: None Reported Past Surgical History: Tubal Ligation Past Anesthesia/Blood Transfusion Reactions: No Reported Reaction Past Psychological History: Anxiety, Bipolar, Depression, Schizophrenia Smoking Status: Current every day smoker Past Alcohol Use History: None Reported Past Drug Use History: None Reported - Past Family History Father Family Medical History: Unable to Obtain, Diabetes Mellitus Mother Family Medical History: Eye Disorder, Hypertension Additional Family Medical History / Comment(s): Mother is alive at age 85 with history of temporal arteritis, peripheral vascular disease status post carotid surgery, blindness in the left eye. Sister(s) Additional Family Medical History / Comment(s): Patient has 4 sisters with no major medical problems. Patient has 3 daughters with no major medical problems. General Exam Limitations: no limitations General appearance: alert, in no apparent distress Head exam: Present: atraumatic, normocephalic, normal inspection Eye exam: Present: normal appearance, EOMI. Absent: scleral icterus, periorbital swelling Neck exam: Present: normal inspection Respiratory exam: Present: normal lung sounds bilaterally. Absent: respiratory distress, wheezes, rales, rhonchi, stridor Cardiovascular Exam: Present: regular rate, normal rhythm, normal heart sounds. Absent: systolic murmur, diastolic murmur, rubs, gallop, clicks Extremities exam: Present: normal inspection Back exam: Present: normal inspection, full ROM (With pain), paraspinal tenderness. Absent: CVA tenderness (R), CVA tenderness (L), vertebral tenderness Neurological exam: Present: alert, oriented X3, CN II-XII intact Psychiatric exam: Present: normal affect, normal mood Skin exam: Present: warm, dry, intact, normal color. Absent: rash Course Vital Signs 09/19/21 10:44 Temperature 98.3 F Pulse Rate 101 H Respiratory 18 Rate Blood Pressure 123/69 O2 Sat by Pulse 94 L Oximetry Medical Decision Making - Medical Decision Making Patient is a 65-year-old female presenting with chief complaint of back pain. Patient has chronic lower back pain and states she is running out of Tylenol 3 for pain management. She has a follow-up appointment with her orthopedist scheduled. On examination there is no loss of bowel or bladder control, no saddle paresthesia. There is there is paraspinal muscle tenderness and pain with range of motion. No fever, chills, dysuria, hematuria. Patient states this is consistent with her regular chronic back pain. Patient's pain is controlled with medication here in the ER. Provided with Tylenol 3 starter pack and Medrol Dosepak. Report back to ER with any new or worsening symptoms. Discussed return parameters answered all questions. Follow-up with orthopedist at scheduled appointment. Patient conveyed verbal understanding and agreed to the plan. I discussed this case with my attending Dr. Benavides. Disposition Clinical Impression: Radiculopathy, Lumbar back pain Disposition: HOME SELF-CARE Condition: Good Instructions (If sedation given, give patient instructions): Chronic Back Pain (DC) Additional Instructions: Follow-up with PCP and orthopedist. Report back to ER with any new or worsening symptoms. Take medication as prescribed. Prescriptions: methylPREDNISolone Dose Pack [Medrol Dose Pack] 4 mg PO DIRECTED #1 packet Is patient prescribed a controlled substance at d/c from ED?: Yes When asked, does pt state using other controlled substances?: No If prescribed controlled substance>3 days was MAPS reviewed?: Prescribed <3 Days Referrals: Anibal Gracia III, MD [Primary Care Provider] - 1-2 days Time of Disposition: 12:15
[2021-09-19] MEDS ORDERED: ACET/COD 300 MG/30 MG STARTER PACK 6 TAB BTL PO STA (12:13)
== END 2021-09-19 12:29 | disposition home or self-care (01) ==
LOC: EC 10:27
DX: M54.16 Radiculopathy, lumbar region (principal); E78.5 Hyperlipidemia, unspecified; E07.9 Disorder of thyroid, unspecified; I10 Essential (primary) hypertension; Z79.899 Other long term (current) drug therapy
CPT/HCPCS: 99283; 96372; J1170

== ENCOUNTER 2021-09-26 08:52 | Emergency (ER) | payer MEDICARE, OTHER ==
[2021-09-26 08:56] VITALS: BP 141/64; PULSE 102; RESP 18; TEMP 98.1
[2021-09-26] MEDS ORDERED: KETOROLAC 15 MG/ML 1 ML VIAL IM STA (09:04)
[2021-09-26] MEDS ORDERED: ACET/COD 300 MG/30 MG STARTER PACK 6 TAB BTL PO STA (09:04)
[2021-09-26] MEDS ORDERED: Acetaminophen-Codeine 300-30mg TAB PO STA (09:04)
--- NOTE | 2021-09-26 09:09 | ED ---
Back Pain [facility] - General Chief Complaint: Back Pain/Injury Stated Complaint: trouble walking Time Seen by Provider: 09/26/21 09:00 Source: patient, RN notes reviewed, old records reviewed Limitations: no limitations - History of Present Illness Initial Comments: 65-year-old female presents ambulatory with complaints of chronic low back pain. Patient states that she has been seeing doctors at the pain clinic who have provided her with a spinal injection in the beginning of August with no relief. She states that she is scheduled to see her neurologist tomorrow for the first time. She states normally she comes to the emergency room and will get a shot of Dilaudid and some Tylenol threes for her pain. She denies any fevers, no bowel or bladder incontinence. She is able to bear weight. This pain is similar to the previous pain that she's had for several years. She has not had any back surgeries. MD Complaint: back pain -: year(s) Similar Symptoms Previously: Yes Severity scale (1-10): 10 Quality: other (shooting "bones rubbing") Consistency: constant Improves With: none Worsens With: movement Associated Symptoms: denies other symptoms - Related Data Home Medications Medication Instructions Recorded Confirmed Propranolol HCl 80 mg PO DAILY 03/22/21 08/26/21 Ziprasidone [Geodon] 80 mg PO BID 03/22/21 08/26/21 lamoTRIgine [LaMICtal ODT] 200 mg PO DAILY 06/10/21 08/26/21 Atorvastatin [Lipitor] 10 mg PO HS 08/23/21 08/26/21 Benztropine Mesylate [Cogentin] 1 mg PO TID 08/23/21 08/26/21 Levothyroxine Sodium [Synthroid] 50 mcg PO DAILY 08/23/21 08/26/21 hydrOXYzine pamoate [Vistaril] 50 mg PO HS 08/23/21 08/26/21 Previous Rx's Medication Instructions Recorded amLODIPine [Norvasc] 10 mg PO DAILY 30 Days tab 08/05/19 Lidocaine 5% Patch [Lidoderm 5% 1 patch TOPICAL DAILY 7 Days #7 08/23/21 Patch] patch Ibuprofen [Motrin] 600 mg PO Q8HR PRN 10 Days #30 tab 08/25/21 methylPREDNISolone Dose Pack 4 mg PO DIRECTED #1 packet 09/19/21 [Medrol Dose Pack] Allergies Allergy/AdvReac Type Severity Reaction Status Date / Time No Known Allergies Allergy Verified 09/26/21 08:57 Review of Systems ROS Statement: Those systems with pertinent positive or pertinent negative responses have been documented in the HPI. ROS Other: All systems not noted in ROS Statement are negative. Past Medical History Past Medical History: Eye Disorder, Hyperlipidemia, Hypertension, Musculoskeletal Disorder, Thyroid Disorder Additional Past Medical History / Comment(s): Blind in the left eye from , back problems. History of Any Multi-Drug Resistant Organisms: None Reported Past Surgical History: Tubal Ligation Past Anesthesia/Blood Transfusion Reactions: No Reported Reaction Past Psychological History: Anxiety, Bipolar, Depression, Schizophrenia Smoking Status: Current every day smoker Past Alcohol Use History: None Reported Past Drug Use History: None Reported - Past Family History Father Family Medical History: Unable to Obtain, Diabetes Mellitus Mother Family Medical History: Eye Disorder, Hypertension Additional Family Medical History / Comment(s): Mother is alive at age 85 with history of temporal arteritis, peripheral vascular disease status post carotid surgery, blindness in the left eye. Sister(s) Additional Family Medical History / Comment(s): Patient has 4 sisters with no major medical problems. Patient has 3 daughters with no major medical problems. General Exam Limitations: no limitations General appearance: alert, in no apparent distress Head exam: Present: atraumatic Eye exam: Present: normal appearance. Absent: scleral icterus, conjunctival injection, periorbital swelling Neck exam: Present: full ROM Respiratory exam: Absent: respiratory distress, accessory muscle use Cardiovascular Exam: Present: tachycardia GI/Abdominal exam: Present: soft Extremities exam: Present: normal capillary refill Back exam: Present: tenderness, paraspinal tenderness (LS-spine) Expanded Back exam: Absent: saddle anesthesia Neurological exam: Present: alert, oriented X3, normal gait Psychiatric exam: Present: normal affect, normal mood Skin exam: Present: warm, dry, normal color. Absent: cyanosis, diaphoretic, petechiae, pallor Course Vital Signs 09/26/21 08:53 Temperature 98.1 F Pulse Rate 102 H Respiratory 18 Rate Blood Pressure 141/64 O2 Sat by Pulse 96 Oximetry Medical Decision Making - Medical Decision Making Patient presents with chronic back pain ongoing for several years. She denies any bowel or bladder incontinence no fevers. Physical exam does not show any evidence of abscess. She is seeing doctors at the pain management clinic. States she has an appointment tomorrow with neurology at 1:30 She is requesting some additional Tylenol threes and a shot of Dilaudid today. She was given a Tylenol 3 and a shot of Toradol in the ER for pain. I explained that prescription narcotics are not indicated for treatment of chronic pain. Si nce she is in the care of pain management doctor I recommended that she continue to follow up with that doctor for her chronic pain. She'll be discharged and directed to keep that appointment tomorrow at 1:30. She is agreeable to this plan of care. Case discussed with Dr. Tariq. Disposition Clinical Impression: Chronic back pain Disposition: HOME SELF-CARE Condition: Good Instructions (If sedation given, give patient instructions): Chronic Back Pain (DC) Additional Instructions: Keep your appointment with your neurologist tomorrow at 1:30. Take Tylenol threes as needed for severe pain. It is not recommended to continue narcotic pain medication for chronic pain. Please follow-up with the pain clinic as well for continuation of care. Return to emergency room if any new or concerning symptoms including fevers, inability to ambulate, bowel or bladder incontinence. Is patient prescribed a controlled substance at d/c from ED?: No Referrals: Anibal Garcia III, MD [Primary Care Provider] - 1-2 days Time of Disposition: 09:16
== END 2021-09-26 09:26 | disposition home or self-care (01) ==
LOC: EC 08:52
DX: G89.29 Other chronic pain (principal); M54.50 Low back pain, unspecified; E78.5 Hyperlipidemia, unspecified; F17.200 Nicotine dependence, unspecified, uncomplicated; I10 Essential (primary) hypertension
CPT/HCPCS: 99283; 96372; J1885

== ENCOUNTER 2021-11-03 07:46 | Emergency (ER) | payer MEDICARE, OTHER ==
[2021-11-03] MEDS ORDERED: HYDROmorphone 1 MG/ML 1 ML SYRINGE IVP STA (07:57)
[2021-11-03] MEDS ORDERED: diazePAM 5 MG TAB PO STA (07:58)
[2021-11-03 08:08] VITALS: RESP 17; TEMP 98.3
[2021-11-03] MEDS ORDERED: HYDROmorphone 1 MG/ML 1 ML SYRINGE IM STA (08:13)
--- NOTE | 2021-11-03 08:13 | ED ---
Back Pain HPI - General Chief Complaint: Back Pain/Injury Stated Complaint: Back pain Time Seen by Provider: 11/03/21 08:00 Source: patient, EMS Limitations: no limitations - History of Present Illness Initial Comments: 66-year-old female with long-standing history of chronic back pain, hypertension, hyperlipidemia who presents to the emergency department with back pain. She has been seen in the emergency department several times for similar complaint. She has also been underneath the care of Dr. Ricketts, Dr. Guillen and currently Dr. Coleman. She states that she sustained a fall last year and afterwards began having worsening back pain. She had an MRI which demonstrated degenerative disc disease, several herniated lumbar disks. Originally seen by Dr. Guillen who referred her to Dr. Ricketts who did a series of injections. He then referred her to Dr. Keene however patient states that he was on vacation and therefore she switched over to Dr. Coleman in September. She is in a pain contract. Has [place] at home which she states she doesn't take because it doesn't help. She does have an appointment today at 11 AM for an epidural injection however states she couldn't get up to ambulate therefore came into the hospital. She denies any bowel or bladder incontinence or retention. States that the location of the pain has been lumbar region radiating into the p osterior aspect of her lower extremities. No change in the quality of the pain or location. Denies fevers. No saddle anesthesia. No new trauma. No other alleviating, precipitating or modifying factors - Related Data Home Medications Medication Instructions Recorded Confirmed Propranolol HCl 80 mg PO DAILY 03/22/21 08/26/21 Ziprasidone [Geodon] 80 mg PO BID 03/22/21 08/26/21 lamoTRIgine [LaMICtal ODT] 200 mg PO DAILY 06/10/21 08/26/21 Atorvastatin [Lipitor] 10 mg PO HS 08/23/21 08/26/21 Benztropine Mesylate [Cogentin] 1 mg PO TID 08/23/21 08/26/21 Levothyroxine Sodium [Synthroid] 50 mcg PO DAILY 08/23/21 08/26/21 hydrOXYzine pamoate [Vistaril] 50 mg PO HS 08/23/21 08/26/21 Previous Rx's Medication Instructions Recorded amLODIPine [Norvasc] 10 mg PO DAILY 30 Days tab 08/05/19 Lidocaine 5% Patch [Lidoderm 5% 1 patch TOPICAL DAILY 7 Days #7 08/23/21 Patch] patch Ibuprofen [Motrin] 600 mg PO Q8HR PRN 10 Days #30 tab 08/25/21 methylPREDNISolone Dose Pack 4 mg PO DIRECTED #1 packet 09/19/21 [Medrol Dose Pack] Allergies Allergy/AdvReac Type Severity Reaction Status Date / Time No Known Allergies Allergy Verified 11/04/21 09:30 Review of Systems ROS Statement: Those systems with pertinent positive or pertinent negative responses have been documented in the HPI. ROS Other: All systems not noted in ROS Statement are negative. Past Medical History Past Medical History: Eye Disorder, Hyperlipidemia, Hypertension, Musculoskeletal Disorder, Thyroid Disorder Additional Past Medical History / Comment(s): Blind in the left eye from , back problems. History of Any Multi-Drug Resistant Organisms: None Reported Past Surgical History: Tubal Ligation Past Anesthesia/Blood Transfusion Reactions: No Reported Reaction Past Psychological History: Anxiety, Bipolar, Depression, Schizophrenia Smoking Status: Current every day smoker Past Alcohol Use History: None Reported Past Drug Use History: None Reported - Past Family History Father Family Medical History: Unable to Obtain, Diabetes Mellitus Mother Family Medical History: Eye Disorder, Hypertension Additional Family Medical History / Comment(s): Mother is alive at age 85 with history of temporal arteritis, peripheral vascular disease status post carotid surgery, blindness in the left eye. Sister(s) Additional Family Medical History / Comment(s): Patient has 4 sisters with no major medical problems. Patient has 3 daughters with no major medical problems. General Exam Limitations: no limitations General appearance: alert, in no apparent distress Head exam: Present: atraumatic, normocephalic, normal inspection Eye exam: Present: normal appearance, PERRL, EOMI. Absent: scleral icterus, conjunctival injection, periorbital swelling ENT exam: Present: normal exam, mucous membranes moist Neck exam: Present: normal inspection. Absent: tenderness, meningismus, lymphadenopathy Respiratory exam: Present: normal lung sounds bilaterally. Absent: respiratory distress, wheezes, rales, rhonchi, stridor Cardiovascular Exam: Present: regular rate, normal rhythm, normal heart sounds. Absent: systolic murmur, diastolic murmur, rubs, gallop, clicks GI/Abdominal exam: Present: soft, normal bowel sounds. Absent: distended, tenderness, guarding, rebound, rigid Extremities exam: Present: normal inspection, full ROM, normal capillary refill. Absent: tenderness, pedal edema, joint swelling, calf tenderness Back exam: Present: tenderness (paraspinal lumbar tenderness L2-L5. bilateral SI joint tenderness) Neurological exam: Present: alert, oriented X3, CN II-XII intact Psychiatric exam: Present: normal affect, normal mood Skin exam: Present: warm, dry, intact, normal color. Absent: rash Course Vital Signs 11/03/21 11/03/21 08:03 10:18 Temperature 98.3 F Pulse Rate 87 88 Respiratory 17 17 Rate Blood Pressure 143/92 132/65 O2 Sat by Pulse 95 94 L Oximetry Medical Decision Making - Medical Decision Making Upon arrival patient is placed in room 9. Her history and physical exam is performed. Pain is consistent with the patient's chronic pain and therefore she is given Valium and Dilaudid for pain and muscle relaxation. Patient feels impr tracey and is able to get up and ambulate. She will go to her doctor's appointment at [address] Alicea's office. Instructed to return for any new or worsening symptoms. Patient discharged in stable condition Disposition Clinical Impression: Chronic back pain Disposition: HOME SELF-CARE Condition: Stable Instructions (If sedation given, give patient instructions): Chronic Back Pain (DC) Additional Instructions: Please follow-up at your appointment today at [address] Alicea. I recommend you see Dr. Keene or Dr. Almaguer. Return to the ED for any new or worsening symptoms. Is patient prescribed a controlled substance at d/c from ED?: No Referrals: Anibal Garcia III, MD [Primary Care Provider] - 1-2 days Landon Almageur DO [Doctor of Osteopathic Medicine] - 1-2 days Maggie Keene DO [Doctor of Osteopathic Medicine] - 1-2 days Time of Disposition: 09:37
[2021-11-03 10:20] VITALS: BP 132/65; PULSE 88
== END 2021-11-03 10:20 | disposition home or self-care (01) ==
LOC: EC 07:46
DX: M54.9 Dorsalgia, unspecified (principal); G89.29 Other chronic pain; E78.5 Hyperlipidemia, unspecified; I10 Essential (primary) hypertension; E07.9 Disorder of thyroid, unspecified; F41.9 Anxiety disorder, unspecified; F31.9 Bipolar disorder, unspecified; F12.90 Cannabis use, unspecified, uncomplicated; Z79.890 Hormone replacement therapy; Z79.899 Other long term (current) drug therapy
CPT/HCPCS: 99283; 96372; J1170

== ENCOUNTER 2021-11-04 09:18 | Emergency (ER) | payer MEDICARE, OTHER ==
[2021-11-04 09:30] VITALS: TEMP 98.4
--- NOTE | 2021-11-04 11:38 | ED ---
Female Urogenital HPI - General Chief complaint: Urogenital Stated complaint: vaginal pain Time Seen by Provider: 11/04/21 11:23 Source: patient Mode of arrival: wheelchair Limitations: no limitations - History of Present Illness Initial comments: 66-year-old female seen yesterday for back pain presents today with complaints of severe vaginal pain since yesterday. She has a history of chronic pain and does see a chronic pain management doctor. MD Complaint: pelvic pain -: days(s) (1) Severity scale (1-10): 10 Consistency: constant Improves with: none - Related Data Home Medications Medication Instructions Recorded Confirmed Propranolol HCl 80 mg PO DAILY 03/22/21 08/26/21 Ziprasidone [Geodon] 80 mg PO BID 03/22/21 08/26/21 lamoTRIgine [LaMICtal ODT] 200 mg PO DAILY 06/10/21 08/26/21 Atorvastatin [Lipitor] 10 mg PO HS 08/23/21 08/26/21 Benztropine Mesylate [Cogentin] 1 mg PO TID 08/23/21 08/26/21 Levothyroxine Sodium [Synthroid] 50 mcg PO DAILY 08/23/21 08/26/21 hydrOXYzine pamoate [Vistaril] 50 mg PO HS 08/23/21 08/26/21 Previous Rx's Medication Instructions Recorded amLODIPine [Norvasc] 10 mg PO DAILY 30 Days tab 08/05/19 Lidocaine 5% Patch [Lidoderm 5% 1 patch TOPICAL DAILY 7 Days #7 08/23/21 Patch] patch Ibuprofen [Motrin] 600 mg PO Q8HR PRN 10 Days #30 tab 08/25/21 methylPREDNISolone Dose Pack 4 mg PO DIRECTED #1 packet 09/19/21 [Medrol Dose Pack] Allergies Allergy/AdvReac Type Severity Reaction Status Date / Time No Known Allergies Allergy Verified 11/04/21 09:30 Review of Systems ROS Statement: Those systems with pertinent positive or pertinent negative responses have been documented in the HPI. ROS Other: All systems not noted in ROS Statement are negative. Past Medical History Past Medical History: Eye Disorder, Hyperlipidemia, Hypertension, Musc uloskeletal Disorder, Thyroid Disorder Additional Past Medical History / Comment(s): Blind in the left eye from , back problems. History of Any Multi-Drug Resistant Organisms: None Reported Past Surgical History: Tubal Ligation Past Anesthesia/Blood Transfusion Reactions: No Reported Reaction Past Psychological History: Anxiety, Bipolar, Depression, Schizophrenia Smoking Status: Current every day smoker Past Alcohol Use History: None Reported Past Drug Use History: None Reported - Past Family History Father Family Medical History: Unable to Obtain, Diabetes Mellitus Mother Family Medical History: Eye Disorder, Hypertension Additional Family Medical History / Comment(s): Mother is alive at age 85 with history of temporal arteritis, peripheral vascular disease status post carotid surgery, blindness in the left eye. Sister(s) Additional Family Medical History / Comment(s): Patient has 4 sisters with no major medical problems. Patient has 3 daughters with no major medical problems. General Exam Limitations: no limitations General appearance: alert, in no apparent distress Head exam: Present: atraumatic Eye exam: Absent: periorbital swelling Neck exam: Present: full ROM. Absent: tenderness, meningismus Respiratory exam: Absent: respiratory distress, accessory muscle use Cardiovascular Exam: Present: regular rate GI/Abdominal exam: Present: soft. Absent: distended, tenderness, guarding, rebound, rigid Speculum exam: Present: normal speculum exam. Absent: erythema, vaginal discharge, cervical discharge, vaginal bleeding, foreign body, tissue, laceration Extremities exam: Present: normal capillary refill Neurological exam: Present: alert, oriented X3 Psychiatric exam: Present: normal affect, normal mood Skin exam: Present: warm, dry. Absent: cyanosis, diaphoretic Course Vital Signs 11/04/21 11/04/21 11/04/21 09:26 13:05 14:48 Temperature 98.4 F Pulse Rate 89 86 77 Respiratory 20 20 20 Rate Blood Pressure 140/77 140/98 140/70 O2 Sat by Pulse 93 L 98 99 Oximetry - Reevaluation(s) Reevaluation #1: 11/04/21 14:22 Patient appears comfortable on cart testing her sister on the phone. She is requesting pain medication Time: 13:30 Medical Decision Making - Medical Decision Making 66-year-old female presents with 1 day of vaginal pain. Was seen yesterday in the emergency room for chronic back pain. States that she was brought back to the emergency room by her daughter today due to severe vaginal pain. She denies any vaginal discharge. No dysuria. She is in the care of Dr. Cooper, Dr. Guillen and Dr. Alicea. She was scheduled to see her pain management doctor today but had her daughter bring her to the ER instead. Patient ambualted to bathroom with RN but states that she is unable to urinate. Bladder scan was performed showing retention 400ml. Rico catheter was placed and urine was sent for testing which revealed no infection. Pelvic exam was performed with no abnormalities, no vaginal discharge or vaginal bleeding. Patient was able to lift her hips up off the cart by bending both knees. Patient states that she is not having vaginal pain that she misstated actually having left groin pain. Labs were sent, CBC shows no evidence of leukocytosis. Kidney function within normal limits. Patient will be discharged home with Rico catheter for retention and directed to continue her previously prescribed pain medication. She was directed to follow-up with urology for urinary retention this week. Vital signs stable. Case discussed with Dr. Bishop - Lab Data Result diagrams: 11/04/21 13:59 11/04/21 13:59 Lab Results 11/04/21 11/04/21 11/04/21 Range/Units 13:31 13:59 13:59 WBC 6.3 (3.8-10.6) k/uL RBC 4.63 (3.80-5.40) m/uL Hgb 15.1 (11.4-16.0) gm/dL Hct 46.3 H (34.0-46.0) % MCV 100.0 (80.0-100.0) fL MCH 32.5 (25.0-35.0) pg MCHC 32.6 (31.0-37.0) g/dL RDW 12.7 (11.5-15.5) % Plt Count 152 (150-450) k/uL MPV 8.3 Neutrophils % 66 % Lymphocytes % 24 % Monocytes % 6 % Eosinophils % 2 % Basophils % 0 % Neutrophils # 4.2 (1.3-7.7) k/uL Lymphocytes # 1.5 (1.0-4.8) k/uL Monocytes # 0.4 (0-1.0) k/uL Eosinophils # 0.1 (0-0.7) k/uL Basophils # 0.0 (0-0.2) k/uL Sodium 141 (137-145) mmol/L Potassium 4.3 (3.5-5.1) mmol/L Chloride 102 (98-107) mmol/L Carbon Dioxide 29 (22-30) mmol/L Anion Gap 10 mmol/L BUN 16 (7-17) mg/dL Creatinine 0.59 (0.52-1.04) mg/dL Est GFR (CKD-EPI)AfAm >90 (>60 ml/min/1.73 sqM) Est GFR (CKD-EPI)NonAf >90 (>60 ml/min/1.73 sqM) Glucose 113 H (74-99) mg/dL Calcium 8.6 (8.4-10.2) mg/dL Urine Color Yellow Urine Appearance Cloudy H (Clear) Urine pH 7.0 (5.0-8.0) Ur Specific [place] 1.017 (1.001-1.035) Urine Protein 1+ H (Negative) Urine Glucose (UA) Negative (Negative) Urine Ketones Negative (Negative) Urine Blood Small H (Negative) Urine Nitrite Negative (Negative) Urine Bilirubin Negative (Negative) Urine Urobilinogen <2.0 (<2.0) mg/dL Ur Leukocyte Esterase Negative (Negative) Urine RBC 6 H (0-5) /hpf Urine WBC 3 (0-5) /hpf Urine Mucus Rare H (None) /hpf Disposition Clinical Impression: Chronic pain, Acute urinary retention Disposition: HOME SELF-CARE Instructions (If sedation given, give patient instructions): Pain Management in Older Adults (DC), Acute Urinary Retention in Women (ED) Additional Instructions: Follow-up with urology tomorrow. Continue your previously prescribed pain medication regimen and follow-up with your primary care doctor and pain management doctor for chronic pain. Return to the emergency room with any fevers, persistent nausea and vomiting or no urine drainage in catheter bag. Is patient prescribed a controlled substance at d/c from ED?: No Referrals: Anibal Garcia III, MD [Primary Care Provider] - 1-2 days Ole Omer MD [STAFF PHYSICIAN] - 1-2 days Time of Disposition: 14:41
[2021-11-04] MEDS ORDERED: KETOROLAC 15 MG/ML 1 ML VIAL IM STA (13:18)
[2021-11-04] MEDS ORDERED: HYDROcodone/APAP 5-325MG 1 EACH TAB PO STA (13:32)
[2021-11-04 13:57] LABS: Appearance,Urine Cloudy (Clear); Bilirubin,Urine Negative (Negative); Blood,Urine Small (Negative); Color,Urine Yellow; Glucose,Urine (UA) Negative (Negative); Ketones,Urine Negative (Negative); Leukocyte Esterase,Urine Negative (Negative); Mucus,Urine Rare /hpf; Nitrite,Urine Negative (Negative); Protein,Urine 1+ (Negative); RBC,Urine 6 /hpf (0-5); Specific Gravity,Urine 1.017 (1.001-1.035); Urobilinogen,Urine <2.0 mg/dL (<2.0); WBC,Urine 3 /hpf (0-5)
[2021-11-04 14:06] LABS: Basophils % (A) 0 %; Eosinophils # (A) 0.1 k/uL (0-0.7); Eosinophils % (A) 2 %; HCT 46.3 % (34.0-46.0); HGB 15.1 gm/dL (11.4-16.0); Lymphocytes # (A) 1.5 k/uL (1.0-4.8); Lymphocytes % (A) 24 %; MCH 32.5 pg (25.0-35.0); MCHC 32.6 g/dL (31.0-37.0); Mean Platelet Volume 8.3; Monocytes # (A) 0.4 k/uL (0-1.0); Monocytes % (A) 6 %; Neutrophils # (A) 4.2 k/uL (1.3-7.7); Neutrophils % (A) 66 %; Platelet Count 152 k/uL (150-450); RBC 4.63 m/uL (3.80-5.40); RDW 12.7 % (11.5-15.5); WBC 6.3 k/uL (3.8-10.6)
[2021-11-04 14:29] LABS: African American GFR (CKD) >90 (>60 ml/min/1.73 sqM); Anion Gap 10 mmol/L; Blood Urea Nitrogen 16 mg/dL (7-17); Calcium 8.6 mg/dL (8.4-10.2); Carbon Dioxide 29 mmol/L (22-30); Chloride 102 mmol/L (98-107); Glucose 113 mg/dL (74-99); Non-African American GFR(CKD) >90 (>60 ml/min/1.73 sqM); Potassium 4.3 mmol/L (3.5-5.1); Sodium 141 mmol/L (137-145)
[2021-11-04 16:06] VITALS: BP 135/78; PULSE 76; RESP 16
== END 2021-11-04 16:06 | disposition home or self-care (01) ==
LOC: EC 09:18
DX: G89.29 Other chronic pain (principal); R33.9 Retention of urine, unspecified; E78.5 Hyperlipidemia, unspecified; I10 Essential (primary) hypertension; E07.9 Disorder of thyroid, unspecified; F41.9 Anxiety disorder, unspecified; F31.9 Bipolar disorder, unspecified; Z79.890 Hormone replacement therapy; Z79.899 Other long term (current) drug therapy
CPT/HCPCS: 51798; 36415; 80048; 85025; 81001; 99284; 96372; J1885

== ENCOUNTER 2021-11-04 20:39 | Emergency (ER) | payer MEDICARE, OTHER ==
[2021-11-04 21:44] VITALS: BP 112/66; PULSE 91; RESP 20; TEMP 98.1
--- NOTE | 2021-11-04 23:11 | ED ---
General Adult HPI - General Chief complaint: Back Pain/Injury Stated complaint: Recheck-wants cath removed Time Seen by Provider: 11/04/21 22:35 Source: patient Mode of arrival: wheelchair Limitations: no limitations - History of Present Illness Initial comments: Patient is a 56-year-old female who presents to the emergency department with Rico catheter issue. Patient had Rico catheter placed into the emergency department for urinary retention. Patient states the Rico catheter is hurting and wants it out. Patient states she has emptied the Rico catheter bag 3 times today. She has not noticed any blood in her urine. Denies fever, chills, abdominal pain, and other concerns. - Related Data Home Medications Medication Instructions Recorded Confirmed Propranolol HCl 80 mg PO DAILY 03/22/21 08/26/21 Ziprasidone [Geodon] 80 mg PO BID 03/22/21 08/26/21 lamoTRIgine [LaMICtal ODT] 200 mg PO DAILY 06/10/21 08/26/21 Atorvastatin [Lipitor] 10 mg PO HS 08/23/21 08/26/21 Benztropine Mesylate [Cogentin] 1 mg PO TID 08/23/21 08/26/21 Levothyroxine Sodium [Synthroid] 50 mcg PO DAILY 08/23/21 08/26/21 hydrOXYzine pamoate [Vistaril] 50 mg PO HS 08/23/21 08/26/21 Previous Rx's Medication Instructions Recorded amLODIPine [Norvasc] 10 mg PO DAILY 30 Days tab 08/05/19 Lidocaine 5% Patch [Lidoderm 5% 1 patch TOPICAL DAILY 7 Days #7 08/23/21 Patch] patch Ibuprofen [Motrin] 600 mg PO Q8HR PRN 10 Days #30 tab 08/25/21 methylPREDNISolone Dose Pack 4 mg PO DIRECTED #1 packet 09/19/21 [Medrol Dose Pack] Allergies Allergy/AdvReac Type Severity Reaction Status Date / Time No Known Allergies Allergy Verified 11/04/21 09:30 Review of Systems ROS Statement: Those systems with pertinent positive or pertinent negative responses have been documented in the HPI. ROS Other: All systems not noted in ROS Statement are negative. Past Medical History Past Medical History: Eye Disorder, Hyperlipidemia, Hypertension, Musculoskeletal Disorder, Thyroid Disorder Additional Past Medical History / Comment(s): Blind in the left eye from , back problems. History of Any Multi-Drug Resistant Organisms: None Reported Past Surgical History: Tubal Ligation Past Anesthesia/Blood Transfusion Reactions: No Reported Reaction Past Psychological History: Anxiety, Bipolar, Depression, Schizophrenia Smoking Status: Current every day smoker Past Alcohol Use History: None Reported Past Drug Use History: None Reported - Past Family History Father Family Medical History: Unable to Obtain, Diabetes Mellitus Mother Family Medical History: Eye Disorder, Hypertension Additional Family Medical History / Comment(s): Mother is alive at age 85 with history of temporal arteritis, peripheral vascular disease status post carotid surgery, blindness in the left eye. Sister(s) Additional Family Medical History / Comment(s): Patient has 4 sisters with no major medical problems. Patient has 3 daughters with no major medical problems. General Exam Limitations: no limitations General appearance: alert, in no apparent distress Head exam: Present: atraumatic, normocephalic, normal inspection Respiratory exam: Present: normal lung sounds bilaterally. Absent: respiratory distress, wheezes, rales, rhonchi, stridor Cardiovascular Exam: Present: regular rate, normal rhythm, normal heart sounds. Absent: systolic murmur, diastolic murmur, rubs, gallop, clicks GI/Abdominal exam: Present: soft, normal bowel sounds. Absent: distended, tenderness, guarding, rebound, rigid Neurological exam: Present: alert, oriented X3, CN II-XII intact Psychiatric exam: Present: normal affect, normal mood Skin exam: Present: warm, dry, intact, normal color. Absent: rash Course Vital Signs 11/04/21 21:38 Temperature 98.1 F Pulse Rate 91 Respiratory 20 Rate Blood Pressure 112/66 O2 Sat by Pulse 93 L Oximetry Medical Decision Making - Medical Decision Making This is a 66 -year-old female requesting Rico catheter removal. Catheter removed. Patient will be discharged with strict return parameters. She will follow up with urology and if she experiences urinary retention or new or concerning symptoms she will return. Dr. Oakes is my attending. Disposition Clinical Impression: Rico catheter in place Disposition: HOME SELF-CARE Condition: Good Instructions (If sedation given, give patient instructions): Acute Urinary Retention in Women (ED) Additional Instructions: Follow-up with urologist in one to 2 days. Return to the emergency department if you experience new, concerning, or worsening, including but not limited to inability to urinate. Is patient prescribed a controlled substance at d/c from ED?: No Referrals: Anibal Garcia III, MD [Primary Care Provider] - 1-2 days
== END 2021-11-04 23:13 | disposition home or self-care (01) ==
LOC: EC 20:39
DX: Z46.6 Encounter for fitting and adjustment of urinary device (principal); I10 Essential (primary) hypertension; E78.5 Hyperlipidemia, unspecified; F17.200 Nicotine dependence, unspecified, uncomplicated; Z79.899 Other long term (current) drug therapy
CPT/HCPCS: 99283

== ENCOUNTER 2022-02-20 11:49 | Emergency (ER) | payer MEDICARE, OTHER ==
[2022-02-20 11:53] VITALS: BP 133/68; PULSE 82; RESP 18; TEMP 98.4
[2022-02-20] MEDS ORDERED: LIDOCAINE 5% PATCH TOPICAL STA (12:27)
[2022-02-20] MEDS ORDERED: KETOROLAC 15 MG/ML 1 ML VIAL IM STA (12:27)
[2022-02-20] MEDS ORDERED: HYDROcodone/APAP 7.5-325MG 1 EACH TAB PO ONE (12:27)
--- NOTE | 2022-02-20 12:29 | ED ---
General Adult HPI - General Chief complaint: Back Pain/Injury Stated complaint: back pain Time Seen by Provider: 02/20/22 12:15 Source: patient, RN notes reviewed, old records reviewed Mode of arrival: wheelchair Limitations: no limitations - History of Present Illness Initial comments: Patient is a 66-year-old female with past medical history remarkable for hypertension, chronic lower back pain who presents emergency Department with acute exacerbation chronic low back pain. Denies any new injuries. Has a history of this low back pain. Uses tramadol at home as well as receives injections in her lower spine without improvement lately. Last saw her spine doctor, Dr. Alicea last month. States she is due for follow-up appointment. States she has been having chronic low back pain. Pain has been bothering her more over the last few days but has been an issue for multiple weeks. No new injury. Denies any saddle anesthesia or numbness in her legs. Denies any weakness in her legs but does state that his worse pain when walking. Denies any urinary or bowel retention or incontinence. Has no other acute complaint at this time including denying fevers. Denies abdominal pain, chest pain, shortness breath, nausea, vomiting, diarrhea. Denies any sick contacts. Was seen at [facility] yesterday for similar complaints, received by mouth steroids, as well as a Toradol injection which did seem to help some but did wear off which is why she presents today for further evaluation. She is already on muscle relaxers at home. Is seeking a dose of pain medication. - Related Data Home Medications Medication Instructions Recorded Confirmed Propranolol HCl 80 mg PO DAILY 03/22/21 08/26/21 Ziprasidone [Geodon] 80 mg PO BID 03/22/21 08/26/21 lamoTRIgine [LaMICtal ODT] 200 mg PO DAILY 06/10/21 08/26/21 Atorvastatin [Lipitor] 10 mg PO HS 08/23/21 08/26/21 Benztropine Mesylate [Cogentin] 1 mg PO TID 08/23/21 08/26/21 Levothyroxine Sodium [Synthroid] 50 mcg PO DAILY 08/23/21 08/26/21 hydrOXYzine pamoate [Vistaril] 50 mg PO HS 08/23/21 08/26/21 Previous Rx's Medication Instructions Recorded amLODIPine [Norvasc] 10 mg PO DAILY 30 Days tab 08/05/19 Lidocaine 5% Patch [Lidoderm 5% 1 patch TOPICAL DAILY 7 Days #7 08/23/21 Patch] patch Ibuprofen [Motrin] 600 mg PO Q8HR PRN 10 Days #30 tab 08/25/21 methylPREDNISolone Dose Pack 4 mg PO DIRECTED #1 packet 09/19/21 [Medrol Dose Pack] Lidocaine 5% Patch [Lidoderm 5% 1 patch TOPICAL DAILY PRN 7 Days 02/20/22 Patch] #7 patch Allergies Allergy/AdvReac Type Severity Reaction Status Date / Time No Known Allergies Allergy Verified 02/20/22 11:53 Review of Systems ROS Statement: Those systems with pertinent positive or pertinent negative responses have been documented in the HPI. Review of Systems: CONST: Denies fever EYES: Denies blurry vision ENT: Denies nasal congestion C/V: Denies Chest pain RESP: Denies shortness of breath GI: Denies abdominal pain : Denies dysuria SKIN: Denies rash. MSK: Endorses chronic lower back pain NEURO: Denies headache ROS Other: All systems not noted in ROS Statement are negative. Past Medical History Past Medical History: Eye Disorder, Hyperlipidemia, Hypertension, Musculoskeletal Disorder, Thyroid Disorder Additional Past Medical History / Comment(s): Blind in the left eye from , back problems. History of Any Multi-Drug Resistant Organisms: None Reported Past Surgical History: Tubal Ligation Past Anesthesia/Blood Transfusion Reactions: No Reported Reaction Past Psychological History: Anxiety, Bipolar, Depression, Schizophrenia Smoking Status: Current every day smoker Past Alcohol Use History: None Reported Past Drug Use History: None Reported - Past Family History Father Family Medical History: Unable to Obtain, Diabetes Mellitus Mother Family Medical History: Eye Disorder, Hypertension Additional Family Medical History / Comment(s): Mother is alive at age 85 with history of temporal arteritis, peripheral vascular disease status post carotid surgery, blindness in the left eye. Sister(s) Additional Family Medical History / Comment(s): Patient has 4 sisters with no major medical problems. Patient has 3 daughters with no major medical problems. General Exam - General Exam Comments Initial Comments: General: Appears in no acute distress. HEAD: Normal with no signs of head trauma. EYES: PERRLA, EOMI, conjunctiva normal, no discharge. ENT: Hearing grossly intact, normal oropharynx. RESPIRATORY: Clear breath sounds bilaterally, no respiratory distress. C/V: Regular rate and rhythm. S1 and S2 auscultated, no edema, peripheral pulses 2+ and intact throughout ABD: Abd is soft, nontender, nondistended EXT: Normal range of motion, no obvious deformity. Pelvis is stable. Mild lower back pain to palpation in the lumbar spine, primarily in the bilateral paraspinal muscles. No cervical or thoracic spine tenderness to palpation. SKIN: No rashes or lesions observed on exposed skin. NEURO: Alert and oriented 4 no focal deficits. No focal sensory strength deficits. Able to move bilateral lower extremities without issue. Limitations: no limitations Course Vital Signs 02/20/22 11:50 Temperature 98.4 F Pulse Rate 82 Respiratory 18 Rate Blood Pressure 133/68 O2 Sat by Pulse 98 Oximetry Medical Decision Making - Medical Decision Making Was pt. sent in by a medical professional or institution? @ -No Did you speak to anyone other than the patient for history? @ -No Did you review nursing and triage notes? @ -Yes. I agree. Were old charts reviewed? @ -No Differential Diagnosis? @ -Differential Back Pain: Strain, zoster, cauda equina syndrome, epidural abscess, vertebral osteomyelitis, discitis, fracture, subluxation, disc herniation, DJD, spinal stenosis, dissection, AAA, pancreatitis, peptic ulcer disease, pyelonephritis, kidney stone, this is not meant to be an all-inclusive list. EKG interpreted by me (3pts min.)? @ -none X-rays interpreted by me (1pt min.)? @ -none CT interpreted by me (1pt min.)? @ -none U/S interpreted by me (1pt. min.)? @ -none What testing was considered but not performed? (CT, X-rays, U/S, labs)? Why? @X-rays of the lower spine. This was not done as the patient has no acute complaints. She self 6. this is a chronic exacerbation of her typical pain. No evidence of cauda equina syndrome. No trauma. What meds were considered but not given? Why? @ -none Did you discuss the management of the patient with other professionals? @ -None Did you reconcile home meds? @ -Yes Was smoking cessation discussed for >3mins.? @ -none Was critical care preformed (if so, how long)? @ -none Were there social determinants of health that impacted care today? How? (Homelessness, low income, unemployed, alcoholism, drug addiction, transportation, low edu. Level, literacy, decrease access to med. care, skilled nursing, rehab)? @ -None Was there de-escalation of care discussed even if they declined? (Discuss DNR or withdrawal of care, Hospice)? @ -No What co-morbidities impacted this encounter? (DM, HTN, Smoking, COPD, CAD, Cancer, CVA, Hep., AIDS, mental health diagnosis, sleep apnea, morbid obesity)? @ -Chronic lower back pain Was patient admitted / discharged? @ -Based on patient's presentation and physical exam, she presents for an acute exacerbation of her chronic low back pain. She has no signs or symptoms of cauda equina syndrome, no new symptoms at this time. Is seeking a dose of pain medications. States she is on muscle relaxers at home. Was seen yesterday for similar complaint. States this does happen occasionally. Does follow up with specialist, Dr. Alicea. We did discuss that she needs to follow up with Dr. Alicea for further pain management. I cannot prescribe her list of medications from the emergency department but I can provide her with a one-time dose in addition to time Toradol as well as lidocaine patch. She was in agreement this plan. No concern for cauda equina syndrome at this time. This seems to be an acute exacerbation of chronic pain. She was in agreement with this plan. I answered all questions that she had. Strict return precautions were discussed. I will provide the patient with a prescription for lidocaine patch. I instructed the patient to follow up with their PCP in the next 1-3 days. I explained that the patient should return to the emergency department if they experience any worsening symptoms. Strict return precautions were discussed with the patient. The patient expressed understanding of these instructions. I answered all questions that the patient had. The patient was discharged home in good condition with their prescriptions and follow up information. Undiagnosed new problem with uncertain prognosis? @ -none Drug Therapy requiring intensive monitoring for toxicity (Heparin, Nitro, Insulin, Cardizem)? @ -none Were any procedures done? @ -none Diagnosis/symptom? @ -Acute on chronic back pain Acute, or Chronic, or Acute on Chronic? @ -Acute on chronic Uncomplicated (without systemic symptoms) or Complicated (systemic symptoms)? @ -Uncomplicated Side effects of treatment? @ -none Exacerbation, Progression, or Severe Exacerbation] @ -no Poses a threat to life or bodily function? @ -no Disposition Clinical Impression: Acute exacerbation of chronic low back pain Disposition: ADMITTED IP TO THIS HOSP Condition: Good Instructions (If sedation given, give patient instructions): Chronic Pain (ED) Prescriptions: Lidocaine 5% Patch [Lidoderm 5% Patch] 1 patch TOPICAL DAILY PRN 7 Days #7 patch PRN Reason: Pain Is patient prescribed a controlled substance at d/c from ED?: No Referrals: Anibal Garcia III, MD [Primary Care Provider] - 1-2 days Time of Disposition: 12:29
== END 2022-02-20 12:41 | disposition home or self-care (01) ==
LOC: EC 11:49
DX: M54.50 Low back pain, unspecified (principal); I10 Essential (primary) hypertension; F41.9 Anxiety disorder, unspecified; F31.9 Bipolar disorder, unspecified; F17.200 Nicotine dependence, unspecified, uncomplicated
CPT/HCPCS: 99283; 96372; J1885

== ENCOUNTER 2022-06-12 09:25 | Emergency (ER) | payer MEDICARE, OTHER ==
[2022-06-12 09:42] VITALS: BP 131/57; PULSE 95; RESP 18; TEMP 98
[2022-06-12] MEDS ORDERED: HYDROcodone/APAP 5-325MG 1 EACH TAB PO STA (10:42)
--- NOTE | 2022-06-12 10:56 | ED ---
General Adult HPI - General Chief complaint: Back Pain/Injury Stated complaint: Back pain, leg pain Time Seen by Provider: 06/12/22 10:27 Source: patient Mode of arrival: ambulatory Limitations: no limitations - History of Present Illness Initial comments: Dictation was produced using [employer] dictation software. please excuse any grammatical, word or spelling errors. Chief Complaint: 66-year-old female with chronic back pain requesting that her pain medication History of Present Illness: 66-year-old female she has history of chronic back pain. 3 days ago she had spinal injections done at pain specialists office. States that the injections did not help. States that her back feels like her usual back pain. Denies any fever. Patient's ambulatory perform activities of daily living. She is prescribed Tylenol number threes and tramadol the past that did not really pass her relief. Patient states that very well. Denies any fever or constitutional symptoms. States her symptoms. Denies any trauma or inciting event. The ROS documented in this emergency department record has been reviewed and confirmed by me. Those systems with pertinent positive or negative responses have been documented in the HPI. All other systems are other negative and/or noncontributory. - Related Data Home Medications Medication Instructions Recorded Confirmed Propranolol HCl 80 mg PO DAILY 03/22/21 08/26/21 Ziprasidone [Geodon] 80 mg PO BID 03/22/21 08/26/21 lamoTRIgine [LaMICtal ODT] 200 mg PO DAILY 06/10/21 08/26/21 Atorvastatin [Lipitor] 10 mg PO HS 08/23/21 08/26/21 Benztropine Mesylate [Cogentin] 1 mg PO TID 08/23/21 08/26/21 Levothyroxine Sodium [Synthroid] 50 mcg PO DAILY 08/23/21 08/26/21 hydrOXYzine pamoate [Vistaril] 50 mg PO HS 08/23/21 08/26/21 Previous Rx's Medication Instructions Recorded amLODIPine [Norvasc] 10 mg PO DAILY 30 Days tab 08/05/19 Lidocaine 5% Patch [Lidoderm 5% 1 patch TOPICAL DAILY 7 Days #7 08/23/21 Patch] patch Ibuprofen [Motrin] 600 mg PO Q8HR PRN 10 Days #30 tab 08/25/21 methylPREDNISolone Dose Pack 4 mg PO DIRECTED #1 packet 09/19/21 [Medrol Dose Pack] Lidocaine 5% Patch [Lidoderm 5% 1 patch TOPICAL DAILY PRN 7 Days 02/20/22 Patch] #7 patch predniSONE 50 mg PO DAILY #5 tab 04/22/22 Allergies Allergy/AdvReac Type Severity Reaction Status Date / Time ibuprofen [From Motrin IB] Allergy Dyspnea Verified 06/12/22 09:42 Review of Systems ROS Statement: Those systems with pertinent positive or pertinent negative responses have been documented in the HPI. ROS Other: All systems not noted in ROS Statement are negative. Past Medical History Past Medical History: Eye Disorder, Hyperlipidemia, Hypertension, Musculoskeletal Disorder, Thyroid Disorder Additional Past Medical History / Comment(s): Blind in the left eye from , back problems. History of Any Multi-Drug Resistant Organisms: None Reported Past Surgical History: Tubal Ligation Past Anesthesia/Blood Transfusion Reactions: No Reported Reaction Past Psychological History: Anxiety, Bipolar, Depression, Schizophrenia Smoking Status: Current every day smoker Past Alcohol Use History: None Reported Past Drug Use History: None Reported - Past Family History Father Family Medical History: Unable to Obtain, Diabetes Mellitus Mother Family Medical History: Eye Disorder, Hypertension Additional Family Medical History / Comment(s): Mother is alive at age 85 with history of temporal arteritis, peripheral vascular disease status post carotid surgery, blindness in the left eye. Sister(s) Additional Family Medical History / Comment(s): Patient has 4 sisters with no major medical problems. Patient has 3 daughters with no major medical problems. General Exam - General Exam Comments Initial Comments: PHYSICAL EXAM: General Impression: Alert and oriented x3, not in acute distress HEENT: Normocephalic atraumatic, extra-ocular movements intact, pupils equal and reactive to light bilaterally, mucous membranes moist. Cardiovascular: Heart regular rate and rhythm Chest: Able to complete full sentences, no retractions, no tachypnea Musculoskeletal: Pulses present and equal in all extremities, no peripheral edema Motor: no focal deficits noted Neurological: CN II-XII grossly intact, no focal motor or sensory deficits noted Skin: Intact with no visualized rashes Psych: Normal affect and mood Limitations: no limitations Course Vital Signs 06/12/22 09:40 Temperature 98 F Pulse Rate 95 Respiratory 18 Rate Blood Pressure 131/57 O2 Sat by Pulse 94 L Oximetry Medical Decision Making - Medical Decision Making Was pt. sent in by a medical professional or institution ([facility], SENIOR NET ARCHITECT, urgent care, hospital, or care home...) When possible be specific @ -No Did you speak to anyone other than the patient for history (EMS, parent, family, police, friend...)? What history was obtained from this source @ -No Did you review nursing and triage notes (agree or disagree)? Why? @ -I reviewed and agree with nursing and triage notes Were old charts reviewed (outside hosp., previous admission, EMS record, old EKG, old radiological studies, urgent care reports/EKG's, care home records)? Report findings @ -No old charts were reviewed Differential Diagnosis (chest pain, altered mental status, abdominal pain women, abdominal pain men, vaginal bleeding, musculoskeletal, weakness, fever, dyspnea, syncope, headache, dizziness, GI bleed, back pain, seizure, CVA, palpatations, mental health)? @ -Differential Back Pain: Strain, zoster, cauda equina syndrome, epidural abscess, vertebral osteomyelitis, discitis, fracture, subluxation, disc herniation, DJD, spinal stenosis, dissection, AAA, pancreatitis, peptic ulcer disease, pyelonephritis, kidney stone, this is not meant to be an all-inclusive list. EKG interpreted by me (3pts min.). @ -None done X-rays interpreted by me (1pt min.). @ -None done CT interpreted by me (1pt min.). @ -None done U/S interpreted by me (1pt. min.). @ -None done What testing was considered but not performed or refused? (CT, X-rays, U/S, labs)? Why? @ -None What meds were considered but not given or refused? Why? @ -None Did you discuss the management of the patient with other professionals (professionals i.e. [facility], SENIOR NET ARCHITECT, lab, RT, psych nurse, socially responsible investment adviser, client technical support associate, teacher, senior credit officer, pillowcase cleaner)? Give summary @ -No Was smoking cessation discussed for >3mins.? @ -No Was critical care preformed (if so, how long)? @ -No Were there social determinants of health that impacted care today? How? (Homelessness, low income, unemployed, alcoholism, drug addiction, transportation, low edu. Level, literacy, decrease access to med. care, long-term, rehab)? @ -No Was there de-escalation of care discussed even if they declined (Discuss DNR or withdrawal of care, Hospice)? DNR status @ -No What co-morbidities impacted this encounter? (DM, HTN, Smoking, COPD, CAD, Cancer, CVA, ARF, Chemo, Hep., AIDS, mental health diagnosis, sleep apnea, morbid obesity)? @ -None Was patient admitted / discharged? Hospital course, mention meds given and route, prescriptions, significant lab abnormalities, going to OR and other pertinent info. @ -66-year-old female presents to the emergency department for acute on chronic back pain. Patient has no high-risk features. Vital signs upon arrival are within acceptable limits. Patient evaluated bedside in acute distress. She is functional. Patient given dose of norco and discharged. [facility] report shows patient recently had 30 day supply of tylenol with codeine prescribed by PCP. Undiagnosed new problem with uncertain prognosis? @ -No Drug Therapy requiring intensive monitoring for toxicity (Heparin, Nitro, Insulin, Cardizem)? @ -No Were any procedures done? @ -No Diagnosis/symptom? Acute, or Chronic, or Acute on Chronic? Uncomplicated (without systemic symptoms) or Complicated (systemic symptoms)? @ -1. Acute on chronic back pain Side effects of treatment? @ -No Exacerbation, Progression, or Severe Exacerbation? @ -No Poses a threat to life or bodily function? How? (Chest pain, USA, DC, pneumonia, PE, COPD, DKA, ARF, appy, cholecystitis, CVA, Diverticulitis, Homicidal, Suicidal, threat to staff... and all critical care pts) @ -No Disposition Clinical Impression: Back pain Disposition: HOME SELF-CARE Condition: Good Instructions (If sedation given, give patient instructions): Acute Low Back Pain (ED) Is patient prescribed a controlled substance at d/c from ED?: Yes Referrals: Anibal Garcia III, MD [Primary Care Provider] - 1-2 days
== END 2022-06-12 11:05 | disposition home or self-care (01) ==
LOC: EC 09:25
DX: M54.50 Low back pain, unspecified (principal); I10 Essential (primary) hypertension; E78.5 Hyperlipidemia, unspecified; E07.9 Disorder of thyroid, unspecified; F31.9 Bipolar disorder, unspecified; F41.9 Anxiety disorder, unspecified; F17.200 Nicotine dependence, unspecified, uncomplicated; Z79.890 Hormone replacement therapy; Z79.899 Other long term (current) drug therapy; Z88.6 Allergy status to analgesic agent
CPT/HCPCS: 99283